=== PATIENT | male | born 1990 | race Caucasian/White ===

== ENCOUNTER 2022-03-08 11:32 | Outpatient (CLI) | payer BC, SELFPAY ==
[2022-03-08 21:18] LABS: Albumin* 4.4 g/dL (3.3-5.0); Chloride* 101 mmol/L (96-114)
[2022-03-08 21:19] LABS: Potassium* 4.6 mmol/L (3.6-5.1); Sodium* 140 mmol/L (135-149)
[2022-03-08 21:22] LABS: Alanine Aminotransferase* 235 U/L (4-50); Alkaline Phosphatase* 71 U/L (40-150); Aspartate Amino Transferase* 143 U/L (12-35); Bilirubin Total* 0.6 mg/dL (0.1-1.5); Blood Urea Nitrogen* 14 mg/dL (5-24); Calcium* 9.5 mg/dL (8.4-10.6); Carbon Dioxide* 33 mmol/L (20-32); Cholesterol* 182 mg/dL (90-199); Creatinine* 0.7 mg/dL (0.5-1.5); Estimated Glomerular Filt Rate 126 ml/min; Glucose* 115 mg/dL (60-115); HDL Cholesterol* 34 mg/dL (>=40); LDL Cholesterol Calculated 46 mg/dL (<100); Total Protein* 7.7 g/dL (6.0-8.3)
[2022-03-08 21:27] LABS: Triglycerides* 509 mg/dL (40-149)
[2022-03-10 17:45] LABS: Vitamin D, 1,25-Dihydroxy 38.5 pg/mL (19.9-79.3)
[2022-03-13 20:10] LABS: Hepatitis B Surface Antibody* Positive (Negative); Hepatitis C Virus Antibody* Positive (Negative)
== END 2022-03-08 11:33 | disposition home or self-care (01) ==
PROVIDERS: PCP Physician Assistant Medical; Visit Provider Physician Assistant Medical
DX: Z00.00 Encounter for general adult medical examination without abnormal findings (principal); I10 Essential (primary) hypertension; F32.9 Major depressive disorder, single episode, unspecified; F41.0 Panic disorder [episodic paroxysmal anxiety]; G89.29 Other chronic pain
CPT/HCPCS: 80053; 80061; 82652; 84443; 86618; 86706; 86803

== ENCOUNTER 2022-03-13 15:32 | Outpatient (CLI) | payer BC, SELFPAY | END 2022-03-13 15:33 | disposition home or self-care (01) | LOC: LAB 15:47 | PROVIDERS: PCP Physician Assistant Medical; Visit Provider Physician Assistant Medical | DX: Z00.00 Encounter for general adult medical examination without abnormal findings (principal); I10 Essential (primary) hypertension; Z11.3 Encounter for screening for infections with a predominantly sexual mode of transmission | CPT/HCPCS: 86703; 86803 ==

== ENCOUNTER 2022-03-15 07:01 | Outpatient (CLI) | payer BC, SELFPAY ==
--- NOTE | 2022-03-15 07:15 | CRLHL7_ITS ---
For Patients: As a result of the Century Cures Act, medical imaging exams and procedure reports are released immediately into your electronic medical record. You may view this report before your referring provider. If you have questions, please contact your health care provider. INDICATION: elevated liver enzymes COMPARISON: none TECHNIQUE: Real time pimentel scale imaging and color Doppler analysis was performed of the right upper quadrant. FINDINGS: The patient`s liver is of normal size and has diffusely increased echogenicity. There is a normal appearance of the hepatic IVC and proximal abdominal aorta. There is no evidence of ascites. The gallbladder is of normal size and there is moderate layering sludge. The gallbladder wall measures 3 mm in thickness. The common bile duct is of normal size and measures 6 mm in diameter at the level of the citlalli hepatis. The pancreas is not well visualized due to overlying bowel gas. There is no evidence of a stone or hydronephrosis within the right kidney. The right kidney measures cm in length. IMPRESSION: Severe hepatic steatosis. Moderate sludge in the gallbladder. Dictated by Evans Irving MD @ 03/15/2022 8:35:18 AM (Electronically Signed)
[2022-03-18 13:21] LABS: Hepa B Virus Surf Ag Conf Non Confirmed (Non Confirmed)
== END 2022-03-15 07:02 | disposition home or self-care (01) ==
PROVIDERS: PCP Physician Assistant Medical; Visit Provider Physician Assistant Medical
DX: R74.8 Abnormal levels of other serum enzymes (principal); K76.0 Fatty (change of) liver, not elsewhere classified
CPT/HCPCS: 36415; 76705; 87341

== ENCOUNTER 2022-03-15 13:09 | Outpatient (CLI) | payer BC, SELFPAY | END 2022-03-15 13:10 | disposition home or self-care (01) | LOC: LKVREF 13:10 | PROVIDERS: PCP Physician Assistant Medical; Visit Provider Physician Assistant Medical | DX: R79.89 Other specified abnormal findings of blood chemistry (principal); K76.0 Fatty (change of) liver, not elsewhere classified | CPT/HCPCS: 87522 ==

== ENCOUNTER 2022-07-10 08:43 | Outpatient (CLI) | payer BC, SELFPAY ==
[2022-07-10 14:22] LABS: Amphetamine Screen Urine Negative (Negative); Barbiturate Screen Urine Negative (Negative); Benzodiazepines Screen Urine Negative (Negative); Cannabinoid Screen Urine POSITIVE (Negative); Cocaine Screen Urine Negative (Negative); Methadone Screen Urine Negative (Negative); Methamphetamines Screen Urine Negative (Negative); Opiate Screen Urine Negative (Negative); Oxycodone Screen Urine Negative (Negative); Phencyclidine Screen Urine Negative (Negative); Tricyclic Antidepressant Urine Negative (Negative)
== END 2022-07-10 08:44 | disposition home or self-care (01) ==
LOC: LKVREF 08:45
PROVIDERS: PCP Physician Assistant Medical; Visit Provider Physician Assistant Medical
DX: F41.0 Panic disorder [episodic paroxysmal anxiety] (principal); F41.9 Anxiety disorder, unspecified
CPT/HCPCS: 80306

== ENCOUNTER 2022-11-06 10:27 | Outpatient (CLI) | payer BC, SELFPAY | END 2022-11-06 10:28 | disposition home or self-care (01) | LOC: NFLDREF 11-07 10:46 | PROVIDERS: PCP Physician Assistant Medical; Referring Provider Physician Assistant Medical; Visit Provider Physician Assistant Medical | DX: Z00.00 Encounter for general adult medical examination without abnormal findings (principal); E78.1 Pure hyperglyceridemia; R79.89 Other specified abnormal findings of blood chemistry; I10 Essential (primary) hypertension | CPT/HCPCS: 80053; 80061 ==

== ENCOUNTER 2023-01-18 09:41 | Outpatient (CLI) | payer BC, SELFPAY | END 2023-01-18 09:42 | disposition home or self-care (01) | LOC: LKVREF 09:42 | PROVIDERS: PCP Physician Assistant Medical; Visit Provider Family Medicine | DX: F50.9 Eating disorder, unspecified (principal); L05.91 Pilonidal cyst without abscess | CPT/HCPCS: 86140 ==

== ENCOUNTER 2023-01-22 05:54 | Day surgery (SDC) | payer BC, SELFPAY ==
[2023-01-22] VITALS (14 sets, daily range): BP systolic 94–148; BP diastolic 34–76; PULSE 65–92; RESP 16–26; TEMP 35.8–37.6; O2SAT 94–100; BMI 37.7
--- NOTE | 2023-01-22 | CRLHL7_ITS ---
For Patients: As a result of the Cures Act, medical imaging exams and procedure reports are released immediately into your electronic medical record. You may view this report before your referring provider. If you have questions, please contact your health care provider. INDICATION: PILONIDAL ABCESS EVAL LUMBAR PROXIMAL TECHNIQUE: CT L-spine recon from same day CT pelvis with IV contrast) COMPARISON: None. FINDINGS: Vertebrae: Postoperative changes of anterior-posterior spinal fusion at L5-S1 along with interbody disc spacer. No evidence of hardware fracture or lucency. Anterior wedging of L1 which is suspected to be a chronic finding. No evidence of acute fracture. Multiple small Schmorl`s nodes throughout the visualized lower thoracic and upper lumbar spine. No evidence of spondylolisthesis. Discs and facet joints: Mild-moderate multilevel intervertebral disc space narrowing facet arthropathy. Extraspinal findings: Paraspinal findings as discussed on same-day contrast enhanced CT pelvis. IMPRESSION: Postoperative changes of anterior-posterior spinal fusion at L5-S1 along with interbody disc spacer. No evidence of hardware fracture or lucency. Anterior wedging of L1 which is suspected to be a chronic finding. Paraspinal findings as discussed on same-day contrast enhanced CT pelvis. Please note that all CT scans at this facility use dose modulation, iterative reconstruction, and/or weight-based dosing when appropriate to reduce radiation dose to as low as reasonably achievable. Dictated by Bill Mariscal MD @ 01/22/2023 8:36:29 AM (Electronically Signed)
--- NOTE | 2023-01-22 06:39 | CRLHL7_ITS ---
For Patients: As a result of the Century Cures Act, medical imaging exams and procedure reports are released immediately into your electronic medical record. You may view this report before your referring provider. If you have questions, please contact your health care provider. INDICATION: PILONIDAL ABCESS EVAL LUMBAR PROXIMAL TECHNIQUE: CT pelvis with 141 cc Isovue 370 IV contrast. COMPARISON: None. FINDINGS: Pilonidal ring-enhancing collection measuring 2.8 x 1.7 x 2.0 cm. Slightly more cranially and right of midline there is a more ill-defined fluid collection measuring 1.9 x 4.0 cm without discrete rim enhancement. This collection is more nonspecific and may represent postoperative changes. Mild surrounding inflammation involving the pilonidal region and lumbar paraspinal soft tissues. No CT evidence of extension of this collection or fissure to the underlying osseous structures or spinal canal. Posterior and anterior L5-S1 fusion. No acute process within the visualized abdomen/pelvic structures. IMPRESSION: Pilonidal ring-enhancing collection measuring 2.8 x 1.7 x 2.0 cm. Finding raises suspicion for abscess. No CT evidence of extension of this collection or fissure to the underlying osseous structures or spinal canal. However, contrast-enhanced MRI would be more sensitive to evaluate for fistula or infectious extension into the spinal canal. Slightly more cranially and right of midline there is a more ill-defined fluid collection measuring 1.9 x 4.0 cm, without discrete rim enhancement. This collection is more indeterminate and may represent postoperative seroma. Please note that all CT scans at this facility use dose modulation, iterative reconstruction, and/or weight-based dosing when appropriate to reduce radiation dose to as low as reasonably achievable. Dictated by Bill Mariscal MD @ 01/22/2023 8:30:52 AM (Electronically Signed)
[2023-01-22 06:44] LABS: Lactate* 1.8 mmol/L (0.5-1.9)
--- NOTE | 2023-01-22 06:45 | ED_ITS ---
HPI - General Adult General Chief complaint: Skin/Abscess/Foreign Body <Fannie Ruelas MD - Last Filed: 01/23/23 00:58> Stated complaint: cyst on tailbone ruptured <Fannie Ruelas MD - Last Filed: 01/23/23 00:58> Time Seen by Provider: 01/22/23 06:02 <Fannie Ruelas MD - Last Filed: 01/23/23 00:58> Source: patient and family <Fannie Ruelas MD - Last Filed: 01/23/23 00:58> Mode of arrival: ambulatory <Fannie Ruelas MD - Last Filed: 01/23/23 00:58> History of Present Illness HPI narrative: 32-year-old male with a notable history of known pilonidal cyst presents to the emergency department because the cyst is enlarging and now has started draining. Drained last night, some again this morning. Seems more painful. Was placed on antibiotics by primary care physician appropriately last week. Rather, the Spectrum was broadened. It looks like he was originally seen in the [facility] system, started on doxycycline, things seem to worsen, he was having fevers, was changed to Augmentin and an outpatient MRI was planned, this is actually scheduled for tomorrow and he is going to see our general surgeon tomorrow as well. He has the fevers have resolved, but is still not feeling well. The pain is increased. He does request Toradol when I offer pain medication again. Appetite has been okay, no cardiac or pulmonary symptoms. He does have a notable history of a lumbar surgery with a graft placed as part of a spinal fusion. The pilonidal cyst is in close proximity to this, hence the request for the upcoming MRI. He has not taken any pain medicine this morning to help with symptoms. He has reported good compliance with the Augmentin. Past history is fairly extensive but he reports marked improvement in most of these conditions with a 100 lb weight loss. Medications are reviewed and accurate, also reviewed his outpatient clinical note from Dr. Simons last week. Surgical history reviewed, medications reviewed, social history reviewed. ROS is notable for the generalized and skin symptoms as described above, otherwise denies times 12 systems. <Fannie Ruelas MD - Last Filed: 01/23/23 00:58> Related Data Home medications: Home Medications Medication Instructions Recorded Confirmed melatonin 10 mg disintegrating 10 mg PO .Bedtime as needed PRN 03/08/22 01/22/23 tablet buprenorphine HCl 2 mg sublingual 2 mg sublingual QID 11/15/22 01/22/23 tablet oxycodone 5 mg capsule 5 mg PO QID PRN 11/15/22 01/22/23 doxycycline hyclate 100 mg capsule 100 mg PO BID 01/18/23 01/22/23 Previous Rx's Medication Instructions Recorded lisinopril 20 1 tab PO QDAY #90 tabs 02/23/22 mg-hydrochlorothiazide 25 mg tablet fluoxetine 20 mg capsule 20 mg PO QDAY #90 caps 03/01/22 fluoxetine 40 mg capsule 40 mg PO QDAY #90 caps 03/01/22 metoprolol succinate 50 mg 50 mg PO QDAY #90 tabs 03/08/22 tablet,extended release 24 hr clonazepam 1 mg tablet 0.5 mg (1/2 x 1 mg) PO QDAY #15 10/18/22 tabs fenofibrate 54 mg tablet 54 mg PO DAILY #90 tabs 01/16/23 amoxicillin 875 mg-potassium 1 tab PO BID #20 tabs 01/18/23 clavulanate 125 mg tablet oxycodone 5 mg tablet 5 - 10 mg (1 - 2 x 5 mg) PO Q4H 01/22/23 PRN Pain #20 tabs <Fannie Ruelas MD - Last Filed: 01/23/23 00:58> Allergies/adverse reactions: Allergies Allergy/AdvReac Type Severity Reaction Status Date / Time No Known Allergies Allergy Verified 01/22/23 06:06 <Fannie Ruelas MD - Last Filed: 01/23/23 00:58> [facility] Medical History: Medical History (Updated 01/22/23 @ 13:12 by Indy Mo MD) High triglycerides ?E78.1 - Pure hyperglyceridemia (ICD-10) Hepatitis C (~03/2022) ?B19.20 - Unspecified viral hepatitis C without hepatic coma (ICD-10) Hypertension ?I10 - Essential (primary) hypertension (ICD-10) Chronic low back pain ?M54.50 - Low back pain, unspecified (ICD-10) ?G89.29 - Other chronic pain (ICD-10) Panic disorder ?F41.0 - Panic disorder [episodic paroxysmal anxiety] (ICD-10) Depression ?F32.A - Depression, unspecified (ICD-10) Anxiety ?F41.9 - Anxiety disorder, unspecified (ICD-10) Accidental overdose ?T50.901A - Poisoning by unspecified drugs, medicaments and biological substances, accidental (unintentional), initial encounter (ICD-10) Hx of blood clots ?Z86.718 - Personal history of other venous thrombosis and embolism (ICD-10) History of opioid abuse ?F11.11 - Opioid abuse, in remission (ICD-10) History of alcohol abuse ?F10.11 - Alcohol abuse, in remission (ICD-10) <Fannie Ruelas MD - Last Filed: 01/23/23 00:58> Surgical History: Surgical History History of wisdom tooth extraction ?K08.409 - Partial loss of teeth, unspecified cause, unspecified class (ICD- 10) History of right knee surgery ?Z98.890 - Other specified postprocedural states (ICD-10) History of lumbar discectomy (2019) ?Z98.890 - Other specified postprocedural states (ICD-10) <Fannie Ruelas MD - Last Filed: 01/23/23 00:58> Family History: Family History Father Bipolar disorder High blood pressure Alcoholism Addiction to drug Mother Addiction to drug Maternal Grandmother History of spinal fusion Paternal Grandfather History of spinal fusion <Fannie Ruelas MD - Last Filed: 01/23/23 00:58> Social History: Social History (Updated 01/22/23 @ 13:13 by Indy Mo MD) Narrative: Male homosexual, to [place]. 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 Smoking Status: Never smoker Second hand tobacco smoke exposure: No How often do you have a drink containing alcohol: never How often do you have six or more drinks on one occasion: Never AUDIT-C Alcohol total score: 0 Non-prescribed substance use: denies use Little interest or pleasure in doing things: several days Feeling down, depressed, or hopeless: several days <Fannie Ruelas MD - Last Filed: 01/23/23 00:58> Exam Const: Vital Signs, click to edit/add: Vital Signs - 24 hr 01/22/23 06:03 01/22/23 06:46 01/22/23 07:32 Temperature 98.1 F 98.1 F 96.4 F L Pulse Rate Pulse Rate [Right Pulse Oximeter] 65 84 Respiratory Rate 18 18 Blood Pressure Blood Pressure [Ri ght Upper Arm] 148/76 H 94/34 L Pulse Oximetry 99 95 Oxygen Delivery Me thod Room Air Room Air 01/22/23 09:02 01/22/23 11:52 01/22/23 14:40 Temperature 97.2 F L 98.1 F Pulse Rate 92 Pulse Rate [Right Pulse Oximeter] 89 82 Respiratory Rate 18 18 26 H Blood Pressure 123/76 Blood Pressure [Ri ght Upper Arm] 132/71 120/71 Pulse Oximetry 99 95 99 Oxygen Delivery Me thod Room Air Room Air Room Air 01/22/23 14:45 01/22/23 14:50 01/22/23 14:55 Temperature Pulse Rate 89 90 86 Pulse Rate [Right Pulse Oximeter] Respiratory Rate 22 18 18 Blood Pressure 104/62 104/62 110/55 L Blood Pressure [Ri ght Upper Arm] Pulse Oximetry 100 100 99 Oxygen Delivery Me thod Room Air Room Air Room Air 01/22/23 15:00 01/22/23 15:05 01/22/23 15:16 Temperature 99.6 F 99.4 F Pulse Rate 88 89 88 Pulse Rate [Right Pulse Oximeter] Respiratory Rate 18 18 16 Blood Pressure 110/62 117/52 L 115/53 L Blood Pressure [Ri ght Upper Arm] Pulse Oximetry 98 99 100 Oxygen Delivery Me thod Room Air Room Air Room Air 01/22/23 15:30 01/22/23 16:08 Temperature Pulse Rate 85 89 Pulse Rate [Right Pulse Oximeter] Respiratory Rate 16 16 Blood Pressure 116/64 110/61 Blood Pressure [Ri ght Upper Arm] Pulse Oximetry 100 94 Oxygen Delivery Me thod Room Air Room Air <Fannie Ruelas MD - Last Filed: 01/23/23 00:58> Vital Signs, click to edit/add: Vital Signs - 24 hr 01/22/23 06:03 01/22/23 06:46 01/22/23 07:32 Temperature 98.1 F 98.1 F 96.4 F L Pulse Rate Pulse Rate [Right Pulse Oximeter] 65 84 Respiratory Rate 18 18 Blood Pressure Blood Pressure [Ri ght Upper Arm] 148/76 H 94/34 L Pulse Oximetry 99 95 Oxygen Delivery Me thod Room Air Room Air 01/22/23 09:02 01/22/23 11:52 01/22/23 14:40 Temperature 97.2 F L 98.1 F Pulse Rate 92 Pulse Rate [Right Pulse Oximeter] 89 82 Respiratory Rate 18 18 26 H Blood Pressure 123/76 Blood Pressure [Ri ght Upper Arm] 132/71 120/71 Pulse Oximetry 99 95 99 Oxygen Delivery Me thod Room Air Room Air Room Air 01/22/23 14:45 01/22/23 14:50 01/22/23 14:55 Temperature Pulse Rate 89 90 86 Pulse Rate [Right Pulse Oximeter] Respiratory Rate 22 18 18 Blood Pressure 104/62 104/62 110/55 L Blood Pressure [Ri ght Upper Arm] Pulse Oximetry 100 100 99 Oxygen Delivery Me thod Room Air Room Air Room Air 01/22/23 15:00 01/22/23 15:05 01/22/23 15:16 Temperature 99.6 F 99.4 F Pulse Rate 88 89 88 Pulse Rate [Right Pulse Oximeter] Respiratory Rate 18 18 16 Blood Pressure 110/62 117/52 L 115/53 L Blood Pressure [Ri ght Upper Arm] Pulse Oximetry 98 99 100 Oxygen Delivery Me thod Room Air Room Air Room Air 01/22/23 15:30 01/22/23 16:08 Temperature Pulse Rate 85 89 Pulse Rate [Right Pulse Oximeter] Respiratory Rate 16 16 Blood Pressure 116/64 110/61 Blood Pressure [Ri ght Upper Arm] Pulse Oximetry 100 94 Oxygen Delivery Me thod Room Air Room Air <Wilfredo Duncan MD - Last Filed: 01/22/23 12:45> Documenting provider has reviewed patient's vital signs: yes <Fannie Ruelas MD - Last Filed: 01/23/23 00:58> Common normals: no apparent distress <MD Gregory Pagan Last Filed: 01/23/23 00:58> General appearance: cooperative, comfortable and well kempt <MD Gregory Pagan Last Filed: 01/23/23 00:58> HENMT: Common normals: normocephalic <MD Gregory Pagan Last Filed: 01/23/23 00:58> Head and scalp: normocephalic <MD Gregory Pagan Last Filed: 01/23/23 00:58> Face and sinus: normal facial exam <MD Gregory Pagan Last Filed: 01/23/23 00:58> Mouth: oral and palatal mucosa normal <MD Gregory Pagan Last Filed: 01/23/23 00:58> Eye: General eye: normal appearance of both eyes <MD Gregory Pagan Last Filed: 01/23/23 00:58> Other: Normal visual gaze and tracking <MD Gregory Pagan Last Filed: 01/23/23 00:58> Resp: Common normals: normal respiratory effort, no use of accessory muscles and clear to auscultation bilaterally <MD Gregory Pagan Last Filed: 01/23/23 00:58> Effort & inspection: able to speak in complete sentences <MD Gregory Pagan Last Filed: 01/23/23 00:58> Auscultation: clear to auscultation bilaterally <MD Gregory Pagan Last Filed: 01/23/23 00:58> Cardio: Common normals: regular rate, regular rhythm, S1 normal heart sound, S2 normal heart sound and no murmurs <MD Gregory Pagan Last Filed: 01/23/23 00:58> Rate: regular rate <MD Gregory Pagan Last Filed: 01/23/23 00:58> Rhythm: regular rhythm <MD Gregory Pagan Last Filed: 01/23/23 00:58> Heart sounds: S1 normal and S2 normal <MD Gregory Pagan Last Filed: 01/23/23 00:58> : Other: Gluteal area shows obvious large pilonidal area induration, swelling. This is a large area probably 8 to 9 cm in length in with, raised about 2 cm above the opposite skin, it is located in the superior central right upper gluteal pilonidal area. The induration does communicate with his previous lumbar surgical incision. The overall appearance is very [place], it is nonfluctuant. I can see a couple of blistery central spots but I cannot milk any purulent drai nage today. Perirectal area is otherwise grossly normal in appearance. There is no fluctuance over the lumbar surgical incision. <Fannie Ruelas MD - Last Filed: 01/23/23 00:58> Neuro: Speech: speech normal <Fannie Ruelas MD - Last Filed: 01/23/23 00:58> Motor exam: no movement abnormalities noted <Fannie Ruelas MD - Last Filed: 01/23/23 00:58> Psych: Appearance: well kempt <Fannie Ruelas MD - Last Filed: 01/23/23 00:58> Attitude: engaged <Fannie Ruelas MD - Last Filed: 01/23/23 00:58> Mood and affect: euthymic mood <Fannie Ruelas MD - Last Filed: 01/23/23 00:58> Insight: insight good <Fnanie Ruelas MD - Last Filed: 01/23/23 00:58> Judgement: judgment good <Fannie Ruelas MD - Last Filed: 01/23/23 00:58> Skin: Narrative: Other than the indurated, abscess appearing area, no other areas of suspicion. <Fannie Ruelas MD - Last Filed: 01/23/23 00:58> Course Course Hospital Course: I have significant concern for infection, possible sepsis, possible communication with prior lumbar hardware. Blood culture, CRP, typical blood work, to place IV line, bolus normal saline. I have contacted the surgeon on- call, recommend CT scan, antibiotics. I have ordered Zosyn. <Fannie Ruelas MD - Last Filed: 01/23/23 00:58> Reevaluation(s) Time of Reevaluation #1: 08:05 <Fannie Ruelas MD - Last Filed: 01/23/23 00:58> Reevaluation #1: Toradol did not adequately improved patient's pain, will order p.r.n. oxycodone and Zofran if needed. Spoke with my partner, Dr. Doyle he will be assuming care for patient. CT has been performed, we are awaiting the final interpretation. He will contact Dr. Mcmillan once these results are available. Zosyn has been infused, normal saline bolus is starting. Patient will be NPO in case of surgical intervention. <Fannie Ruelas MD - Last Filed: 01/23/23 00:58> Vital Signs Vital signs: Initial Vital Signs Temperature 98.1 F 01/22/23 06:03 Temperature Source Temporal Artery Scan 01/22/23 06:03 Pulse Rate 65 01/22/23 06:03 Respiratory Rate 18 01/22/23 06:03 Blood Pressure 148/76 H 01/22/23 06:03 Blood Pressure Mean 100 01/22/23 06:03 Blood Pressure Position Sitting 01/22/23 06:03 Pulse Oximetry 99 01/22/23 06:03 Oxygen Delivery Method Room Air 01/22/23 06:03 Vital Signs Temperature 98.1 F 01/22/23 06:03 Pulse Rate 65 01/22/23 06:03 Respiratory Rate 18 01/22/23 06:03 Blood Pressure 148/76 H 01/22/23 06:03 Pulse Oximetry 99 01/22/23 06:03 Oxygen Delivery Method Room Air 01/22/23 06:03 Temperature 99.4 F 01/22/23 15:16 Pulse Rate 89 01/22/23 16:08 Respiratory Rate 16 01/22/23 16:08 Blood Pressure 110/61 01/22/23 16:08 Pulse Oximetry 94 01/22/23 16:08 Oxygen Delivery Method Room Air 01/22/23 16:08 <Fannie Ruelas MD - Last Filed: 01/23/23 00:58> Initial Vital Signs Temperature 98.1 F 01/22/23 06:03 Temperature Source Temporal Artery Scan 01/22/23 06:03 Pulse Rate 65 01/22/23 06:03 Respiratory Rate 18 01/22/23 06:03 Blood Pressure 148/76 H 01/22/23 06:03 Blood Pressure Mean 100 01/22/23 06:03 Blood Pressure Position Sitting 01/22/23 06:03 Pulse Oximetry 99 01/22/23 06:03 Oxygen Delivery Method Room Air 01/22/23 06:03 Vital Signs Temperature 98.1 F 01/22/23 06:03 Pulse Rate 65 01/22/23 06:03 Respiratory Rate 18 01/22/23 06:03 Blood Pressure 148/76 H 01/22/23 06:03 Pulse Oximetry 99 01/22/23 06:03 Oxygen Delivery Method Room Air 01/22/23 06:03 Temperature 99.4 F 01/22/23 15:16 Pulse Rate 89 01/22/23 16:08 Respiratory Rate 16 01/22/23 16:08 Blood Pressure 110/61 01/22/23 16:08 Pulse Oximetry 94 01/22/23 16:08 Oxygen Delivery Method Room Air 01/22/23 16:08 <Wilfredo Duncan MD - Last Filed: 01/22/23 12:45> Medical Decision Making MDM Narrative Medical decision making narrative: This patient has a sizable pilonidal cyst. Care for this patient was transferred to [place] at the end of Dr. Ruelas's shift. CT results do show evidence of a cyst in there is some suspicion that it may communicate with the previous spinal surgery. MRI then is ordered which results with no such evidence. I did speak with the surgeon on-call, Dr. Mo, regarding these results. She will see the patient and bring him to the OR to drain this pilonidal cyst. The patient did receive an IV dose of antibiotic here. <Wilfredo Duncan MD - Last Filed: 01/22/23 12:45> Lab Data Labs: Lab Results 01/22/23 Range/Units 06:38 WBC 9.29 (4.50-11.00) K/uL RBC 4.08 L (4.30-5.90) m/uL Hgb 12.1 L (13.5-17.5) gm/dL Hct 36.7 L (37.0-53.0) % MCV 90 (80-100) fL MCH 30 (26-34) pg MCHC 33 (32-36) gm/dL RDW Coeff of Sneha 12.7 (11.5-15.5) % Plt Count 305 (140-440) K/uL Neut % (Auto) 64.0 (42.0-72.0) % Lymph % (Auto) 22.2 (20-44) % [place] % (Auto) 11.5 H (0.0-11.0) % Eos % (Auto) 1.7 (0.0-7.0) % Baso % (Auto) 0.4 (0.0-3.0) % Neut # (Auto) 5.94 (1.7-7.0) K/uL Lymph # (Auto) 2.06 (0.90-2.90) K/uL [place] # (Auto) 1.10 H (0.00-0.90) K/UL Eos # (Auto) 0.16 (0.00-0.50) K/uL Baso # (Auto) 0.04 (0.00-0.30) K/uL Sodium 136 (135-149) mmol/L Potassium 3.9 (3.6-5.1) mmol/L Chloride 101 (96-114) mmol/L Carbon Dioxide 33 H (20-32) mmol/L BUN 24 (5-24) mg/dL Creatinine 1.1 (0.5-1.5) mg/dL Estimated Creat Clear 107.95 Estimated GFR 91 ml/min Glucose 102 (60-115) mg/dL Lactate 1.8 (0.5-1.9) mmol/L Calcium 9.5 (8.4-10.6) mg/dL C-Reactive Protein 5.7 H (0.5-1.0) mg/dL <Fannie Ruelas MD - Last Filed: 01/23/23 00:58> Lab Results 01/22/23 Range/Units 06:38 WBC 9.29 (4.50-11.00) K/uL RBC 4.08 L (4.30-5.90) m/uL Hgb 12.1 L (13.5-17.5) gm/dL Hct 36.7 L (37.0-53.0) % MCV 90 (80-100) fL MCH 30 (26-34) pg MCHC 33 (32-36) gm/dL RDW Coeff of Sneha 12.7 (11.5-15.5) % Plt Count 305 (140-440) K/uL Neut % (Auto) 64.0 (42.0-72.0) % Lymph % (Auto) 22.2 (20-44) % [place] % (Auto) 11.5 H (0.0-11.0) % Eos % (Auto) 1.7 (0.0-7.0) % Baso % (Auto) 0.4 (0.0-3.0) % Neut # (Auto) 5.94 (1.7-7.0) K/uL Lymph # (Auto) 2.06 (0.90-2.90) K/uL [place] # (Auto) 1.10 H (0.00-0.90) K/UL Eos # (Auto) 0.16 (0.00-0.50) K/uL Baso # (Auto) 0.04 (0.00-0.30) K/uL Sodium 136 (135-149) mmol/L Potassium 3.9 (3.6-5.1) mmol/L Chloride 101 (96-114) mmol/L Carbon Dioxide 33 H (20-32) mmol/L BUN 24 (5-24) mg/dL Creatinine 1.1 (0.5-1.5) mg/dL Estimated Creat Clear 107.95 Estimated GFR 91 ml/min Glucose 102 (60-115) mg/dL Lactate 1.8 (0.5-1.9) mmol/L Calcium 9.5 (8.4-10.6) mg/dL C-Reactive Protein 5.7 H (0.5-1.0) mg/dL <Wilfredo Duncan MD - Last Filed: 01/22/23 12:45> Imaging Data MR Lumbar: Radiologist's impression: 1. Severe spinal canal stenosis at L3-4 and moderate central canal stenosis at L2-3 due to disc herniations and disc bulges. 2. Chronic postoperative changes of L5-S1 interbody cage placement, anterior plate and screw fixation, laminectomy, and bilateral pedicle screw and shane fixation. No evidence of discitis or osteomyelitis. No fluid collection at the laminectomy site. 3. There is an 8.2 cm fluid collection in the subcutaneous fat at the S2-S4 levels with rim enhancement and adjacent soft tissue edema concerning for pilonidal cyst/abscess in the appropriate clinical setting. 4. Additional 1.9 cm fluid collection in the subcutaneous fat located inferior to the above collection with similar imaging characteristics of uncertain sterility. <Wilfredo Duncan MD - Last Filed: 01/22/23 12:45> Discharge Plan Discharge Clinical Impression: Cyst, pilonidal, with abscess <Fannie Ruelas MD - Last Filed: 01/23/23 00:58> Patient Disposition: XFER to OR <Fannie Ruelas MD - Last Filed: 01/23/23 00:58> Condition: Unchanged <Fannie Ruelas MD - Last Filed: 01/23/23 00:58>
[2023-01-22 06:46] LABS: Basophils Absolute Auto 0.04 K/uL (0.00-0.30); Basophils Percent Auto 0.4 % (0.0-3.0); Eosinophils Absolute Auto 0.16 K/uL (0.00-0.50); Eosinophils Percent Auto 1.7 % (0.0-7.0); Hematocrit 36.7 % (37.0-53.0); Hemoglobin* 12.1 gm/dL (13.5-17.5); Immature Granulocytes Abs Auto 0.02 K/uL (0.00-0.30); Immature Granulocytes Pct Auto 0.2 %; Lymphocytes Absolute Auto 2.06 K/uL (0.90-2.90); Lymphocytes Percent Auto 22.2 % (20-44); Mean Corpuscular HGB Conc 33 gm/dL (32-36); Mean Corpuscular Hemoglobin 30 pg (26-34); Mean Corpuscular Volume 90 fL (80-100); Monocytes Percent Auto 11.5 % (0.0-11.0); Neutrophils Absolute Auto 5.94 K/uL (1.7-7.0); Platelet Count* 305 K/uL (140-440); RDW Coefficient of Variation % 12.7 % (11.5-15.5); Red Blood Count 4.08 m/uL (4.30-5.90); White Blood Count* 9.29 K/uL (4.50-11.00)
[2023-01-22] MEDS: KETOROLAC 15 MG/ML inj IVP (06:46)
[2023-01-22 06:48] LABS: Slide Review Reflex No
[2023-01-22 07:04] LABS: Chloride* 101 mmol/L (96-114); Potassium* 3.9 mmol/L (3.6-5.1); Sodium* 136 mmol/L (135-149)
[2023-01-22 07:07] LABS: Creatinine* 1.1 mg/dL (0.5-1.5); Est. Creatinine Clearance* 107.95; Estimated Glomerular Filt Rate 91 ml/min
[2023-01-22 07:08] LABS: Blood Urea Nitrogen* 24 mg/dL (5-24); Calcium* 9.5 mg/dL (8.4-10.6); Carbon Dioxide* 33 mmol/L (20-32); Glucose* 102 mg/dL (60-115)
[2023-01-22 07:11] LABS: C Reactive Protein* 5.7 mg/dL (0.5-1.0)
[2023-01-22] MEDS: PIPERACILLIN/TAZOBACTAM 3.375 GM in 0.9 % SODIUM CHLORIDE Mini-bag 100 ML IVPB (07:27)
--- NOTE | 2023-01-22 07:46 | PM.GSCN ---
History of Present Illness Consult details Date Seen: 01/22/23 Consult date: 01/22/23 Narrative: The patient is a 32-year-old male who presents to the emergency department with several days of pain in his tailbone. He states that on Sunday he had a massage where there was excessive pressure applied to his coccyx. On Sunday he thought that his symptoms were simply because of the massage, however he continued to feel worse. He states that he was achy and had nausea as well as sweats. He had a fever up to 101.6. On Sunday morning he went to the emergency department. At that time they did an ultrasound which showed no fluid. A told him to follow up with his primary care provider. On he saw Dr. Simons who ordered labs and and x-ray of his back given the fact that he has had a lumbar fusion in the past and the erythema extended up to the inferior portion of his incision. He had schedule him to see general surgery and also ordered an MRI. After this he states that he felt better physically but the pain on his tailbone was getting worse and he felt as though it was getting more swollen. It was radiating up his right back as well. Yesterday it began draining blood. [facility] Medical History (Updated 01/22/23 @ 13:12 by Indy Mo MD) High triglycerides ?E78.1 - Pure hyperglyceridemia (ICD-10) Hepatitis C (~03/2022) ?B19.20 - Unspecified viral hepatitis C without hepatic coma (ICD-10) Hypertension ?I10 - Essential (primary) hypertension (ICD-10) Chronic low back pain ?M54.50 - Low back pain, unspecified (ICD-10) ?G89.29 - Other chronic pain (ICD-10) Panic disorder ?F41.0 - Panic disorder [episodic paroxysmal anxiety] (ICD-10) Depression ?F32.A - Depression, unspecified (ICD-10) Anxiety ?F41.9 - Anxiety disorder, unspecified (ICD-10) Accidental overdose ?T50.901A - Poisoning by unspecified drugs, medicaments and biological substances, accidental (unintentional), initial encounter (ICD-10) Hx of blood clots ?Z86.718 - Personal history of other venous thrombosis and embolism (ICD-10) History of opioid abuse ?F11.11 - Opioid abuse, in remission (ICD-10) History of alcohol abuse ?F10.11 - Alcohol abuse, in remission (ICD-10) Surgical History History of wisdom tooth extraction ?K08.409 - Partial loss of teeth, unspecified cause, unspecified class (ICD-10) History of right knee surgery ?Z98.890 - Other specified postprocedural states (ICD-10) History of lumbar discectomy (2019) ?Z98.890 - Other specified postprocedural states (ICD-10) Family History Father Bipolar disorder High blood pressure Alcoholism Addiction to drug Mother Addiction to drug Maternal Grandmother History of spinal fusion Paternal Grandfather History of spinal fusion Social History (Updated 01/22/23 @ 13:13 by Indy Mo MD) Narrative: Male homosexual, to [place]. 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 Smoking Status: Never smoker Second hand tobacco smoke exposure: No How often do you have a drink containing alcohol: never How often do you have six or more drinks on one occasion: Never AUDIT-C Alcohol total score: 0 Non-prescribed substance use: denies use Little interest or pleasure in doing things: several days Feeling down, depressed, or hopeless: several days Meds Home Medications and Allergies Home Medications Medication Instructions Recorded Confirmed Type melatonin 10 mg disintegrating 10 mg PO .Bedtime as needed PRN 03/08/22 01/22/23 History tablet buprenorphine HCl 2 mg sublingual 2 mg sublingual QID 11/15/22 01/22/23 History tablet oxycodone 5 mg capsule 5 mg PO QID PRN 11/15/22 01/22/23 History doxycycline hyclate 100 mg capsule 100 mg PO BID 01/18/23 01/22/23 History Allergies Allergy/AdvReac Type Severity Reaction Status Date / Time No Known Allergies Allergy Verified 01/22/23 06:06 Exam Narrative: Exam Narrative: General appearance: Alert, cooperative, and in no distress Eyes: PERRLA, eye lids clear, and sclera white HENT Head: Normocephalic Ears: External ears normal Pulmonary: Clear to auscultation bilaterally Cardiovascular Heart: Regular rate and rhythm Extremities: warm and well perfused Musculoskeletal: Extremities: Upper: Both upper extremities have normal joint range of motion and intact strength. Lower: Both lower extremities have normal joint range of motion and intact strength. Skin: On his back on the right above the gluteal cleft he has a large area of cellulitis, measuring approximately 7 x 10 cm. This does extend toward end up to his midline incision from his L5-S1 fusion. Neurologic: No focal deficits Psychiatric: Alert, oriented, cooperative, normal affect. Const: Vital Signs, click to edit/add: Vital Signs - 24 hr 01/22/23 06:03 01/22/23 06:46 01/22/23 07:32 Temperature 98.1 F 98.1 F 96.4 F L Pulse Rate [Right Pulse Oximeter] 65 84 Respiratory Rate 18 18 Blood Pressure [Ri ght Upper Arm] 148/76 H 94/34 L Pulse Oximetry 99 95 Oxygen Delivery Me thod Room Air Room Air Results Labs Labs: Abnormal lab results 01/22/23 Range/Units 06:38 RBC 4.08 L (4.30-5.90) m/uL Hgb 12.1 L (13.5-17.5) gm/dL Hct 36.7 L (37.0-53.0) % [place] % (Auto) 11.5 H (0.0-11.0) % [place] # (Auto) 1.10 H (0.00-0.90) K/UL Carbon Dioxide 33 H (20-32) mmol/L C-Reactive Protein 5.7 H (0.5-1.0) mg/dL Diabetes panel 01/22/23 Range/Units 06:38 Sodium 136 (135-149) mmol/L Potassium 3.9 (3.6-5.1) mmol/L Chloride 101 (96-114) mmol/L Carbon Dioxide 33 H (20-32) mmol/L BUN 24 (5-24) mg/dL Creatinine 1.1 (0.5-1.5) mg/dL Glucose 102 (60-115) mg/dL Calcium 9.5 (8.4-10.6) mg/dL Calcium panel 01/22/23 Range/Units 06:38 Calcium 9.5 (8.4-10.6) mg/dL Pituitary panel 01/22/23 Range/Units 06:38 Sodium 136 (135-149) mmol/L Potassium 3.9 (3.6-5.1) mmol/L Chloride 101 (96-114) mmol/L Carbon Dioxide 33 H (20-32) mmol/L BUN 24 (5-24) mg/dL Creatinine 1.1 (0.5-1.5) mg/dL Glucose 102 (60-115) mg/dL Calcium 9.5 (8.4-10.6) mg/dL Adrenal panel 01/22/23 Range/Units 06:38 Sodium 136 (135-149) mmol/L Potassium 3.9 (3.6-5.1) mmol/L Chloride 101 (96-114) mmol/L Carbon Dioxide 33 H (20-32) mmol/L BUN 24 (5-24) mg/dL Creatinine 1.1 (0.5-1.5) mg/dL Glucose 102 (60-115) mg/dL Calcium 9.5 (8.4-10.6) mg/dL All other labs normal. White blood cell count today is 9 from 12 on the 15th. CRP is down to 5.7 from 15.6. Imaging Additional studies: Lumbar spine MRI done today: Impression: 1. Severe spinal canal stenosis at L3-4 and moderate central canal stenosis at L2-3 due to disc herniations and disc bulges. 2. Chronic postoperative changes of L5-S1 interbody cage placement, anterior plate and screw fixation, laminectomy, and bilateral pedicle screw and shane fixation. No evidence of discitis or osteomyelitis. No fluid collection at the laminectomy site. 3. There is an 8.2 cm fluid collection in the subcutaneous fat at the S2-S4 levels with rim enhancement and adjacent soft tissue edema concerning for pilonidal cyst/abscess in the appropriate clinical setting. 4. Additional 1.9 cm fluid collection in the subcutaneous fat located inferior to the above collection with similar imaging characteristics of uncertain sterility. Dictated by Evans Barillas MD @ 01/22/2023 12:34:[address] 01/22/2023: IMPRESSION: Pilonidal ring-enhancing collection measuring 2.8 x 1.7 x 2.0 cm. Finding raises suspicion for abscess. No CT evidence of extension of this collection or fissure to the underlying osseous structures or spinal canal. However, contrast-enhanced MRI would be more sensitive to evaluate for fistula or infectious extension into the spinal canal. Slightly more cranially and right of midline there is a more ill-defined fluid collection measuring 1.9 x 4.0 cm, without discrete rim enhancement. This collection is more indeterminate and may represent postoperative seroma. Please note that all CT scans at this facility use dose modulation, iterative reconstruction, and/or weight-based dosing when appropriate to reduce radiation dose to as low as reasonably achievable. Dictated by Bill Mariscal MD @ 01/22/2023 8:30:[address] 01/22/2023: IMPRESSION: Postoperative changes of anterior-posterior spinal fusion at L5-S1 along with interbody disc spacer. No evidence of hardware fracture or lucency. Anterior wedging of L1 which is suspected to be a chronic finding. Paraspinal findings as discussed on same-day contrast enhanced CT pelvis. Please note that all CT scans at this facility use dose modulation, iterative reconstruction, and/or weight-based dosing when appropriate to reduce radiation dose to as low as reasonably achievable. Dictated by Bill Mariscal MD @ 01/22/2023 8:36:29 AM Assessment and Plan Assessment and plan (1) Anxiety: Status: Acute (2) Depression: Problem comment: Fluoxetine History of going to [facility] 11/15/2022-weekly therapy; through an outside clinic in [place]. Status: Acute (3) Panic disorder: Problem comment: History of utilizing lorazepam as needed; switch to clonazepam 1 mg twice daily Status: Acute (4) Chronic low back pain: Problem comment: Buperenorphine and oxycodone - managed by pain clinic Status: Acute (5) Hepatitis C: Problem comment: Genotype 1a Referred to [facility]- 03/24/22 Start treatment with [facility] 07/10/2022-patient has completed treatment; has lab follow-up in September 2022 with [facility] 11/15/2022-still following with [facility]. Patient reports his recent studies indicate the levels were undetectable Status: Acute (6) History of lumbar discectomy: Problem comment: x 2 Status: Acute (7) Pilonidal cyst: Status: Acute Plan The patient is a 32-year-old male with pilonidal cyst abscess. Because of the erythema which was present extending up to his prior surgical incision and some concern on CT scan for inability to rule out involvement of his surgical site from 2019, we did proceed with a MRI of the lumbar spine. This showed no evidence of extension to the spine and only subcutaneous abscess consistent with pilonidal abscess. I discussed pilonidal disease with the patient and his . I discussed the rationale behind drainage in the acute setting. I explained that I will try to open up and debride the cyst and hopefully it will heal by secondary intention. We will try to do this as an outpatient today. Because of his significant cellulitis I will likely discharge home on antibiotics as well. He will come back tomorrow for dressing change and then we will come up with a plan for daily dressing changes for him. He does live in [place]. He has a number of medical issues, however no severe cardio pulmonary issues and therefore he is cleared for surgery today.
[2023-01-22] MEDS: 0.9 % SODIUM CHLORIDE 1000 ml 1,000 ML IV (08:02)
[2023-01-22] MEDS: ONDANSETRON 2 MG/ML inj 4 MG IVP (08:12)
[2023-01-22] MEDS: OXYCODONE 5 MG TABLET PO ×2 (08:13→11:58)
--- NOTE | 2023-01-22 08:50 | CRLHL7_ITS ---
For Patients: As a result of the Century Cures Act, medical imaging exams and procedure reports are released immediately into your electronic medical record. You may view this report before your referring provider. If you have questions, please contact your health care provider. Indication: LOW BACK PAIN, PILONIDAL FISTULA. s/p AP fusion L5-S1 02/09/20. Outside RN note from 01/17/2023 states patient was getting a massage and therapist was trying to break up scar tissue in that area when bubble was noticed. Then states he pushed on in and the patient heard a popping noise. Notes chills, weakness, body aches, and fever of 101.4f with use of APAP. Technique: Noncontrast sagittal and axial T1, T2, and sagittal STIR sequences are provided. Postcontrast sagittal and axial T1 weighted images were obtained after administration of 15 ml gadolinium based IV contrast. Comparison: CT lumbar spine 01/22/2023. Findings: Lumbar lordosis is maintained. No acute compression fractures. Chronic L1 anterior wedging mild compression fracture without retropulsed fragment. No acute fractures. The conus medullaris is normal in signal and location. Chronic postoperative changes of L5-S1 interbody cage placement, anterior plate and screw fixation, laminectomy, and bilateral pedicle screw and shane fixation. T12-L1: No significant spinal canal stenosis or neural foramen narrowing. L1-2: Mild disc degeneration and posterior disc bulge. No significant spinal canal stenosis or neural foramen narrowing. L2-3: Disc degeneration with disc bulge and superimposed right paracentral disc protrusion that measures 9 x 8 mm and contributes to moderate-severe right lateral recess stenosis and moderate central canal stenosis. No neural foramina narrowing. L3-4: Disc degeneration with diffuse posterior disc bulge and superimposed central disc herniation resulting in severe spinal canal stenosis. Mild facet arthrosis. Mild left and no right neural foramen narrowing. L4-5: Moderate right and mild left facet arthrosis. Prominence of dorsal epidural fat. Mild narrowing of the thecal sac. Mild left neural foramen narrowing. L5-S1: Postoperative changes. No significant spinal canal stenosis or neural foramen narrowing. There is a T2 heterogeneous fluid collection located slightly to the right of midline at the S2-S4 levels measuring approximately 8.2 cm craniocaudally x 5.2 cm transversely x 3.2 cm AP the demonstrates rim enhancement, with increased STIR signal in the adjacent soft tissues concerning for infected collection. Additional fluid collection demonstrating heterogeneous T2 signal and rim enhancement located 1.3 cm inferior to the above collection measures 1.9 cm craniocaudal x 1.9 cm AP x 1.8 cm TR. Discussed with Dr. Duncan at 12:34 pm Impression: 1. Severe spinal canal stenosis at L3-4 and moderate central canal stenosis at L2-3 due to disc herniations and disc bulges. 2. Chronic postoperative changes of L5-S1 interbody cage placement, anterior plate and screw fixation, laminectomy, and bilateral pedicle screw and shane fixation. No evidence of discitis or osteomyelitis. No fluid collection at the laminectomy site. 3. There is an 8.2 cm fluid collection in the subcutaneous fat at the S2-S4 levels with rim enhancement and adjacent soft tissue edema concerning for pilonidal cyst/abscess in the appropriate clinical setting. 4. Additional 1.9 cm fluid collection in the subcutaneous fat located inferior to the above collection with similar imaging characteristics of uncertain sterility. Dictated by Evans Barillas MD @ 01/22/2023 12:34:08 PM (Electronically Signed)
[2023-01-22] MEDS: HYDROmorphone 0.5 mg/0.5 ml inj IVP (10:34)
--- NOTE | 2023-01-22 13:39 | PM.GSPRC ---
Operative Note Date of procedure: 01/22/23 Pre-op diagnosis: Right-sided pilonidal abscess Post-op diagnosis: Right-sided pilonidal abscess versus possible abscess from prior surgical incision Type of Procedure: Incision and drainage of abscess Indications: The patient is a 32-year-old male who presented with a week of pain. This started with nausea and fever and pressure on his tailbone. This gradually worsened and he came in to be seen. MRI was ordered and antibiotics were prescribed. His white blood cell count improved with antibiotics, however Estelle did not. He came in to be seen today was found to have an abscess in the pilonidal region, however there was additional non specific fluid extending further up. There was some concern that this could be communicating with the patient's hardware were from his prior back surgery. MRI was then obtained which showed 2 fluid collections in the back which were felt to be subcutaneous in nature without any evidence of fluid around the hardware site. It was felt that this was likely business development representative of a pilonidal cyst and therefore the decision was made to proceed to OR for incision and drainage. The patient agreed to proceed after discussing risks and benefits Procedure Description: After discussing the risks and benefits of the procedure, the patient signed informed consent.? The operative site was marked and the patient was brought to the operating room and placed on the operating table in supine position.? He was then intubated by Anesthesia. The patient was then placed in the prone position. The operative site was then prepped and draped in the usual sterile fashion.? A time-out was then performed. The gluteal cleft was then examined. It was draining inferiorly. There was a fluctuant area just superior to this on the right. A knife was then used to create a skin incision. Copious purulent drainage returned. This was sent for culture. This was approximately 2 x 2 x 2 cm abscess cavity. On the MRI there was noted to be additional fluid cavity more superior. I was unable to palpate this and there were no connections to this smaller cavity. I obtained ultrasound and brought into the field and was able to identify a fluid pocket in the deep subcutaneous tissue. Using an 18 gauge spinal needle, I was able to aspirate this and confirm purulent material. I then extended initial incision to connect the 2 cavities. Again copious purulent material returned. I excised a small amount of subcutaneous fat in order to better connect the cavities so they would be able to be accessed for dressings. The larger cavity extended across the midline and superiorly. This was located under the inferior aspect of the patient's prior spinal fusion incision. It did not appear to track deep or superiorly. The area of abscess was superior and to the left the area of induration on the right superior buttock. The wound was then irrigated. Hemostasis was achieved with cautery. This was then packed with Kerlix soaked in Vashe and cover with an ABD. ? The patient was then woken and transported to the recovery area in stable condition. ? The patient tolerated the procedure well. Findings: Two abscess cavities; 1 located in the usual pilonidal cyst location, the 2nd located across the midline underlying the inferior aspect of the patient's prior spinal fusion incision. Anesthesia: GETA Surgeon: Indy Mo MD Estimated blood loss (mL): 5 Additional Specimen Information: Abscess fluid for culture Condition: stable Disposition: PACU
[2023-01-22] MEDS: PIPERACILLIN/TAZOBACTAM 3.375 GM INJ IVPB (13:52)
--- NOTE | 2023-01-22 15:03 | W.ANESCHARGE ---
Anesthesia Charges Start Date/Time Anesthesia Start Date: 01/22/23 Anesthesia Start Time: 13:34 Stop Date/Time Anesthesia Stop Date: 01/22/23 Anesthesia Stop Time: 14:37
[2023-01-22] MEDS: LACTATED RINGERS 1000 ML IV (16:17)
== END 2023-01-22 16:19 | disposition home or self-care (01) ==
LOC: ED 13:26 → SS 13:37
PROVIDERS: Emergency Provider Family Medicine; PCP Physician Assistant Medical; Referring Provider Surgery; Visit Provider Surgery
PROC: (CPT 10081; principal; 2023-01-22 13:15)
DX: L05.01 Pilonidal cyst with abscess (principal)
CPT/HCPCS: 10081; 00902; 36415; 72131; 72158; 72193; 80048; 83605; 85025; 86140; 87040; 87070; 87075; 87205; 99284; A9270; A9575; J0330; J1100; J1170; J1200; J1885; J2250; J2405; J2543; J2704; J3010; J3490; J7030; J7120; Q9967

== ENCOUNTER 2023-02-01 09:29 | Outpatient (CLI) | payer BC, SELFPAY ==
--- OUTSIDE RECORDS SUMMARY | 2023-02-01 09:34 | XMS_ITS | Continuity of Care Document ---
Author Name Unknown Organization [facility] Address [address] 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[employer] Name Role Phone Will MD NIELSEN, José Unavailable Unavailabl e Allergies, Adverse Reactions, Alerts Substance Reaction Status Criticality No Known Allergies Active No Inform ation Medications Medication Instructions Dosage Effective Dates (start - stop) Status Comments CLONAZEPAM (unknown strength) take 1 tablet by oral route 3 times every day as needed Not Available - Active lisinopril 20 mg-hydrochlorothiazi de 12.5 mg tablet take 1 tablet by oral route every day 1.00 tablet - Active propranolol 10 mg tablet take 1 tablet by oral route 3 times every day 10 MG - Active fluoxetine 20 mg capsule take 1 capsule by oral route every day in the morning 20 MG - Active MELATONIN (unknown strength) Not Available - Active IBUPROFEN (unknown strength) take 1 capsule by oral route every 6 hours as needed as needed Not Available - Active acetaminophen ER 650 mg tablet,extended release take 2 tablet by ORAL route every day as needed 1300 MG - Active Procedures Procedure Date ROUTINE BLOOD DRAW No Charge For Visit Per Prov DAST 15-30 MIN Foll-up eval q3mo opiod tx OFFICE/OUTPATIENT VISIT, EST Foll-up eval q3mo opiod tx OFFICE VISIT, EST TELEMEDICINE Foll-up eval q3mo opiod tx OFFICE VISIT, EST TELEMEDICINE ROUTINE BLOOD DRAW Drug Urine Toxology With Chromatography Drug test def 8-14 classes Foll-up eval q3mo opiod tx OFFICE VISIT, EST TELEMEDICINE 21 ROUTINE BLOOD DRAW Drug Urine Toxology With Chromatography Drug test def 1-7 classes Foll-up eval q3mo opiod tx OFFICE/OUTPATIENT VISIT, EST Foll-up eval q3mo opiod tx OFFICE VISIT, EST TELEMEDICINE Foll-up eval q3mo opiod tx OFFICE VISIT, EST TELEMEDICINE Drug test def 22+ classes Drug Urine Toxology With Chromatography No Charge For Visit Per Prov Foll-up eval q3mo opiod tx OFFICE VISIT, EST TELEMEDICINE Brief check in by md/qhp Foll-up eval q3mo opiod tx OFFICE VISIT, EST TELEMEDICINE Foll-up eval q3mo opiod tx OFFICE VISIT, EST TELEMEDICINE Drug Urine Toxology With Chromatography Drug test def 15-21 classes PT-FOCUSED HLTH RISK ASSMT Foll-up eval q3mo opiod tx OFFICE VISIT, EST TELEMEDICINE Foll-up eval q3mo opiod tx OFFICE/OUTPATIENT VISIT, NEW Advance Directives Directive Yes / No Effective Date File Name No Information Encounters Encounter Description Practice Location Reason(s) For Visit Diagnoses Date Provider Providers Copied on Encounter [facility], [address] [facility] [place], [id number] , [place] tel:[phone] [facility] Welcome No Information 2 Beto Kumar. [address] [facility] [place], [id number] , [place]. tel:[phone] [facility], [address] [facility] [place], [id number] , [place] tel: [phone] [facility] No Information 2 [facility]. [id number] [place] [address] [address], [place], [id number] , [place]. tel: [phone] OFFICE/OUTPAT IENT VISIT, EST [facility], [address] [place] [address] [place], [id number] , [place] tel: [phone] [facility] Back Pain (chief complaint) Chronic pain syndromePostlamine ctomy syndrome, not elsewhere classifiedRadiculo samanta, lumbar regionLong term (current) use of opiate analgesicPain in right hipEncounter for screening for other disorder 2 [facility]. [id number] [place] [address] [address], [place], [id number] , [place]. tel: [phone] Referring Provider: José Hendrix, [address] [place] [address] [place], [address] . tel:[phone] OFFICE VISIT, EST TELEMEDICINE [facility], [address] [place] [address] [place], [place], [id number] , [place] tel: [phone] [facility] Back Pain (chief complaint) Chronic pain syndromePostlamine ctomy syndrome, not elsewhere classifiedRadiculo samanta, lumbar regionLong term (current) use of opiate analgesicPain in right hip Sep-0 1 [facility]. [address] [place] [address] [address], [place], [id number] , [place]. tel: [phone] Referring Provider: José Hendrix, [address] [facility] [place], [address] . tel:[phone] OFFICE VISIT, EST TELEMEDICINE [facility], [address] [place] [address] [place], [id number] , [place] tel: [phone] [facility] Back Pain (chief complaint) Chronic pain syndromePostlamine ctomy syndrome, not elsewhere classifiedRadiculo samanta, lumbar regionLong term (current) use of opiate analgesicPain in right hip 1 Keke Coleman. [address], [place], [place], [id number] , [place]. tel: [phone] Referring Provider: José Hendrix, [address] [place], [address] . tel:[phone] [facility], [address] [place] [address] [place], [place], [id number] , [place] tel: [phone] [facility] Encounter for therapeutic drug level monitoringLong term (current) use of opiate analgesic 1 Keke Coleman. [address] [facility] [address], [place], [id number] , [place]. tel: [phone] Referring Provider: José Hendrix, [address] [place] [address] [place], [address] . tel:[phone] OFFICE VISIT, [facility] TELEMEDICINE [facility], [address] [place] [address] [place], [id number] , [place] tel: [phone] [facility] Back Pain (chief complaint) Chronic pain syndromePostlamine ctomy syndrome, not elsewhere classifiedRadiculo samanta, lumbar regionLong term (current) use of opiate analgesicPain in right hip 1 Keke Coleman. [address], [place], [id number] , [place]. tel: [phone] Referring Provider: José Hendrix, [address] [facility] [place], [address] . tel:[phone] [facility], [address] [place] [address] [place], [place], [id number] , [place] tel: [phone] [facility] No Information 1 Mallory Castro. [address] [facility], [place], [place], [id number] , [place]. tel: [phone] Referring Provider: José Hendrix, [address] [place], [address] . tel:[phone] OFFICE/OUTPAT IENT VISIT, [facility], [address] [facility] [place], [id number] , [place] tel: [phone] [facility] Low back pain (chief complaint) Chronic pain syndromePostlamine ctomy syndrome, not elsewhere classifiedRadiculo samanta, lumbar regionLong term (current) use of opiate analgesic 1 Mallory Castro. [address], [place], [id number] , [place]. tel: [phone] Referring Provider: José Hendrix, [address] [place] [address] [place], [address] . tel:[phone] OFFICE VISIT, [facility], [address] [place] [address] [place], [id number] , [place] tel: [phone] [facility] low back pain (chief complaint) Chronic pain syndromePostlamine ctomy syndrome, not elsewhere classifiedRadiculo samanta, lumbar regionLong term (current) use of opiate analgesicEncounter for therapeutic drug level monitoring 1 Emanisa [place]. [address] [facility] [facility] [address], [place], [place], [id number] , [place]. tel: [phone] Referring Provider: José Hendrix, [address] [place], [address] . tel:[phone] OFFICE VISIT, [facility], [address] [place] [address] [place], [id number] , [place] tel: [phone] [facility] low back pain (chief complaint) Chronic pain syndromePostlamine ctomy syndrome, not elsewhere classifiedRadiculo samanta, lumbar regionLong term (current) use of opiate analgesic Jun- 0 Nyongesa [place]. [address] [facility] [address] [facility] [address], [place], [place], [id number] , [place]. tel: [phone] Referring Provider: José Hendrix, [address] [facility] [place], [address] . tel:[phone] [facility], [address] [place] [address] [place], [id number] , [place] tel: [phone] [facility] [place] No Information 0- 0 Nyongesa [place]. [address] [facility] [address], [facility] [place], [id number] , [place]. tel: [phone] OFFICE VISIT, EST TELEMEDICINE [facility], [address] [facility] [place], [id number] , [place] tel: [phone] [facility] low back pain (chief complaint) Chronic pain syndromePostlamine ctomy syndrome, not elsewhere classifiedRadiculo samanta, lumbar regionLong term (current) use of opiate analgesic 8 0 Nyongesa [place]. [address] [facility] [address], [place], [place], [id number] , [place]. tel: [phone] Referring Provider: José Hendrix, [address] [place] [address] [place], [address] . tel:[phone] [facility], [address] [place] [address] [place], [id number] , [place] tel: [phone] [facility] No Information 2 0 Tejadasavanna Castro. [address] [facility] [address], [place], [id number] , [place]. tel: [phone] Referring Provider: José Hendrix, [address] [place] [address] [place], [address] . tel:[phone] OFFICE VISIT, EST TELEMEDICINE [facility], [address] [facility] [place], [id number] , [place] tel: [phone] [facility] low back pain (chief complaint) Chronic pain syndromePostlamine ctomy syndrome, not elsewhere classifiedRadiculo samanta, lumbar regionLong term (current) use of opiate analgesic 0 Nyongesa [place]. [address] [facility] [address], [place], [place], [id number] , [place]. tel:[phone] Referring Provider: José Hendrix, [address] [place] [address] [place], [address] . tel:[phone] OFFICE VISIT, [facility], [address] [place] [address] [place], [id number] , [place] tel: [phone] [facility] low back pain (chief complaint) Chronic pain syndromePostlamine ctomy syndrome, not elsewhere classifiedRadiculo samanta, lumbar regionLong term (current) use of opiate analgesic 0 Mimiongesa Coleman. [address] [facility] [address], [place], [id number] , [place]. tel: [phone] Referring Provider: José Hendrix, [address] [place] [address] [place], [address] . tel:[phone] [facility], [address] [place] [address], [id number] , [place] tel: [phone] [facility] No Information 0 Keke Coleman. [address] [facility] [address], [place], [id number] , [place]. [phone] Referring Provider: José Hendrix, [address] [place] [address] [place], [address] . tel:[phone] OFFICE VISIT, [facility], [address] [place] [address], [id number] , [place] tel: [phone] [facility] low back pain (chief complaint) Chronic pain syndromePostlamine ctomy syndrome, not elsewhere classifiedRadiculo samanta, lumbar regionEncounter for therapeutic drug level monitoring 0 Nyongesa [place]. [address] [facility] [address], [place], [id number] , [place]. tel: [phone] Referring Provider: Refugio Madden, [facility] [address] [facility] [address], [place], [address]. tel:[phone] OFFICE/OUTPAT IENT VISIT, [facility], [address] [facility] [address] [facility] [place], [id number] , [place] tel: [phone] [facility] low back pain (chief complaint) Chronic pain syndromePostlamine ctomy syndrome, not elsewhere classifiedRadiculo samanta, lumbar regionEncounter for therapeutic drug level monitoring 0 0 Keke Coleman. [address] [facility] [address], [place], [id number] , [place]. tel: [phone] Referring Provider: José Hendrix, [address] [facility] [place], [address] . tel:[phone] Family History Family Member Type Diagnosis Age At Onset No Information Payers Payer name Insurance type Covered republican ID Authoriza tion(s) No Information Social History Type Description Quantity Date Captured Comments Sex Male Smoking Status No Information Chief Complaint And Reason For Visit No Information Reason For Referral Reason For Referral No Information Plan Of Treatment Date Type Action Status Goal OARS. Due on due Goal UDT. 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 Due on due Goal AST (SGOT). Due on due Goal ALT (SGPT). Due on due Goal Order Annual PT. Due on due Goal Creatinine. Due on due Goal UPHOLSTERER OUTSIDE Scanned. Due on due Goal Medication Recon ciliation. Due on due Goal Tobacco Use. Due on due Goal PHQ-9. Due on du e Goal Review Allergy List. Due on due Goal Height. Due on d ue Goal Weight. Due on d ue Goal Update Social History. Due o n due Goal OARS. Due on due Goal UDT. 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 Due on due Goal AST (SGOT). Due on due Goal ALT (SGPT). Due on due Goal Order Annual PT. Due on due Goal Creatinine. Due on due Goal UPHOLSTERER OUTSIDE Scanned. Due on due Goal Medication Recon ciliation. Due on due Goal Tobacco Use. Due on due Goal PHQ-9. Due on du e Goal Review Allergy List. Due on due Goal Height. Due on d ue Goal Weight. Due on d ue Goal Update Social History. Due o n due Goal OARS. Due on due Goal UDT. 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 Due on due Goal AST (SGOT). Due on due Goal ALT (SGPT). Due on due Goal Order Annual PT. Due on due Goal Creatinine. Due on due Goal UPHOLSTERER OUTSIDE Scanned. Due on due Goal Medication Recon ciliation. Due on due Goal Tobacco Use. Due on due Goal PHQ-9. Due on du e Goal Review Allergy List. Due on due Goal Height. Due on d ue Goal Weight. Due on d ue Goal Update Social History. Due o n due Goal OARS. Due on due Goal UDT. 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 Due on due Goal AST (SGOT). Due on due Goal ALT (SGPT). Due on due Goal Order Annual PT. Due on due Goal Creatinine. Due on due Goal UPHOLSTERER OUTSIDE Scanned. Due on due Goal Medication Recon ciliation. Due on due Goal Tobacco Use. Due on due Goal PHQ-9. Due on du e Goal Review Allergy List. Due on due Goal Height. Due on d ue Goal Weight. Due on d ue Goal Update Social History. Due o n due Goal OARS. Due on due Goal UDT. 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 Due on due Goal AST (SGOT). Due on due Goal ALT (SGPT). Due on due Goal Order Annual PT. Due on due Goal Creatinine. Due on due Goal UPHOLSTERER OUTSIDE Scanned. Due on due Goal Medication Recon ciliation. Due on due Goal Tobacco Use. Due on due Goal PHQ-9. Due on du e Goal Review Allergy List. Due on due Goal Height. Due on d ue Goal Weight. Due on d ue Goal Update Social History. Due o n due Goal OARS. Due on due Goal UDT. 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 Due on due Goal AST (SGOT). Due on due Goal ALT (SGPT). Due on due Goal Order Annual PT. Due on due Goal Creatinine. Due on due Goal UPHOLSTERER OUTSIDE Scanned. Due on due Goal Medication Recon ciliation. Due on due Goal Tobacco Use. Due on due Goal PHQ-9. Due on du e Goal Review Allergy List. Due on due Goal Height. Due on d ue Goal Weight. Due on d ue Goal Update Social History. Due o n due Goal OARS. Due on due Goal UDT. 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 Due on due Goal AST (SGOT). Due on due Goal ALT (SGPT). Due on due Goal Order Annual PT. Due on due Goal Creatinine. Due on due Goal UPHOLSTERER OUTSIDE Scanned. Due on due Goal Medication Recon ciliation. Due on due Goal Tobacco Use. Due on due Goal PHQ-9. Due on du e Goal Review Allergy List. Due on due Goal Height. Due on d ue Goal Weight. Due on d ue Goal Update Social History. Due o n due Goal Medication Recon ciliation. Due on due Goal Tobacco Use. Due on due Goal PHQ-9. Due on du e Goal Review Allergy List. Due on due Goal Height. Due on d ue Goal Weight. Due on d ue Goal Update Social History. Due o n due Goal OARS. Due on due Goal UDT. 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 Due on due Goal AST (SGOT). Due on due Goal ALT (SGPT). Due on due Goal Order Annual PT. Due on due Goal Creatinine. Due on due Goal UPHOLSTERER OUTSIDE Scanned. Due on 021 due Future Order: Lab Order Drug Yuly t Def 22+ Classes (G0483), Ordered on: Ordered History Of Present Illness Encounter Date Complaint History Of Prese nt Illness Back Pain (comments) Flaquito is a 30 y/o male, meeting with us for follow up and medication refill in the setting of chronic low back and hip pain. He states his pain is worse this month. He is currently in PT and is doing stretches at home. He states when he takes a step he feels a shooting sensation in his groin. He reports the mid back pain is the worst area of pain today, but states it radiates into his groin a little. Of note, he is still w/o insurance today and states that his insurance should begin Sep 2021.Reports current medication regimen provides up to 100% pain relief and allows for increased functionality. He states he has not taken Oxycodone in a few weeks. He usually takes #1tab Oxycodone a day which provides 100% pain relief for 8 hours. He reports he takes a lot of Tylenol in the interim which causes GI upset and pain. Denies side effects from current medication regimen.No other concerns today. Back Pain Severity level i s 1. Duration: chronic. The problem is fluctuating. It occurs intermittently. The patient describes the pain as an ache and sharp. Symptoms are aggravated by running, standing, walking, housework and prolonged positioning. Symptoms are relieved by heat, lying down, pain meds/drugs, physical therapy, stretching, rest and changing positions. Back Pain Severity level i s 7. Duration: chronic. The problem is worsening. It occurs intermittently. Location of pain is lower back and hips.The patient describes the pain as an ache and sharp. Symptoms are aggravated by bending, lifting and housework. Symptoms are relieved by heat, lying down, pain meds/drugs, physical therapy and rest. Back Pain (comments) Flaquito is meeting with us today via [facility] Virtual Visit for follow up and medication refill. Low back and hip pain is worse this month, but medication does help to some extent. He feels his pain is moderately managed at this time. The shooting nerve pain in the right hip is now radiating into the left hip as well. Her has doubled up on his PT stretches which is somewhat helpful. The pain is worst at night and can cause insomnia. He notices that he often drags his right foot. He has not gotten a call regarding referral to [facility] yet.Reports current medication regimen provides up to 100% pain relief and allows for increased functionality. Denies side effects from current medication regimen.No other concerns today. Back Pain Severity level i s 7. Duration: chronic. The problem is stable. It occurs intermittently. Location of pain is lower back and right hip.The patient describes the pain as an ache, burning, sharp and tingling. Symptoms are aggravated by bending, lifting, housework and prolonged positioning. Symptoms are relieved by heat, pain meds/drugs, physical therapy, stretching and rest. Back Pain (comments) Flaquito is meeting with us today via [facility] Virtual Visit for follow up and medication refill. Low back and right hip pain persists this month, but medication does help to some extent. He feels his pain is moderately managed at this time. He continues HEP and stretching with benefit.He recently contracted COVID-19 (+) test, he is recovering well now. He will get re-tested after his quarantine period, 3 days left.Reports current medication regimen provides 90% pain relief and allows for increased functionality. Denies side effects from current medication regimen.No other concerns today. Back Pain Severity level i s 6. Duration: chronic. The problem is worsening. It occurs intermittently. Location of pain is lower back. Pain is radiated to the right thigh.The patient describes the pain as an ache, sharp and tingling. Symptoms are aggravated by bending, daily activities, twisting, prolonged positioning and housework. Symptoms are relieved by heat, ice, lying down, pain meds/drugs, physical therapy, stretching, rest and chiropractic. Back Pain (comments) Flaquito is here for follow-up. He returns with low back pain s/p lumbar fusion 1 yr ago. Pain has been worse. Low back pain will radiate down his R hip and groin which causes him to limp. Pain worse with movementHe recently transitioned to part-time at work d/t his pain. He recently followed up with his surgeon, Dr. Coleman at [facility] and imaging showed his fusion structurally intact. He is currently using Tylenol and Advil to manage his pain. Percocet prescribed last visit , has been helpful. Reports current medication regimen provides 90% pain relief and allows increased functionality. Denies side effects from current medication regimen. Last UDT with THC, not used any since. Plan to repeat UDTNo other concerns today. Low back pain (comments) Flaquito is here for follow-up; last follow- up on 08/10/20. He returns with low back pain s/p lumbar fusion 10 months ago. Pain has been worse. Low back pain will radiate down his R hip and groin which causes him to limp. He is not interested in imaging of his hip. He recently transitioned to part-time at work d/t his pain. He recently followed up with his surgeon, Dr. Coleman at [facility] and imaging showed his fusion structurally intact. He is currently using Tylenol and Advil to manage his pain. He is interested in restarting pain medication today as he tapered off percocet a few months ago.He is not accompanied. No other concerns today. Low back pain Severity level i s 8. Duration: chronic. The problem is stable. It occurs persistently. Location of pain is lower back.The patient describes the pain as an ache, burning and sharp. Symptoms are aggravated by ascending stairs, bending, changing positions, daily activities, descending stairs, jumping, lifting, twisting and walking. Symptoms are relieved by heat, lying down, pain meds/drugs, physical therapy, stretching and rest. low back pain Severity level i s 5. Duration: chronic. The problem is improving. It occurs intermittently. Location of pain is lower back.The patient describes the pain as an ache, numbness, sharp and tingling. Symptoms are aggravated by bending, lifting, twisting, housework and prolonged positioning. Symptoms are relieved by heat, pain meds/drugs, physical therapy, stretching and rest. low back pain (comments) Flaquito is meeting with us today via [facility] Virtual Visit for following up and medication refill. Low back pain persists this month but tolerable with medication. He is 6 months post op spinal surgery. Reports increased ROM and strength, continues PT stretches and exercises at home with benefit. His low back and leg pain has decreased as well. He rarely has shooting, tingling pain in his legs now. Reports relief in pain flares from lumbar JD in the past- requests repeat in future , he does not recall where he did them in the pastReports current medication regimen provides 90% pain relief and allows for increased functionality. Denies side effects from current medication regimen.No other concerns today. low back pain (comments) Flaquito is meeting with us today via [facility] Virtual Visit for following up and medication refill. Low back pain persists this month but tolerable with medication. He reports weekly improvement in low back pain since fusion. End goal is to completely wean off narcotics. He not taking any gabapentin - declines to addReports current medication regimen provides 90% pain relief and allows for increased functionality. Denies side effects from current medication regimen.No other concerns today. low back pain Severity level i s 6. Duration: chronic. The problem is improving. It occurs intermittently. Location of pain is lower back and hips.The patient describes the pain as an ache and tingling. Symptoms are aggravated by bending, standing, twisting, walking, movement and housework. Symptoms are relieved by heat, ice, lying down, pain meds/drugs, physical therapy, stretching and rest. low back pain (comments) Flaquito is meeting with us today via [facility] Virtual Visit for following up and medication refill. Low back pain has improved since surgery, tolerable with medication. He completed his L5, S1 fusion on 02/09/[address] Coronel at [facility] which was a success. The sharp, shooting pain has resolved since the surgery, but no he has aching pain in the low back which is aggravated by prolonged postioning and standing.Reports current medication regimen provides 90% pain relief and allows for increased functionality. Denies side effects from current medication regimen. After surgery he was given tizanidine, oxycodone, and vitamin D.No other concerns today. low back pain Severity level i s 5. Duration: chronic. The problem is improving. It occurs intermittently. Location of pain is lower back and right hip.The patient describes the pain as an ache and sharp. Symptoms are aggravated by standing, housework and prolonged positioning. Symptoms are relieved by ice, lying down, pain meds/drugs, physical therapy and changing positions. low back pain (comments) Flaquito is meeting with us today via [employer] Virtual Visit for following up and medication refill. Low back pain persists this month, tolerable with medication. He continues to complete PT exercise at home daily. He has been playing tennis twice a week as well to increase activity level.Reports current medication regimen provides 85% pain relief and allows for increased functionality. Denies side effects from current medication regimen.No other concerns today. low back pain Severity level i s 7. Duration: chronic. The problem is stable. It occurs persistently. Location of pain is lower back.The patient describes the pain as an ache, burning, numbness, sharp and tingling. Symptoms are aggravated by bending, lifting, twisting, movement and housework. Symptoms are relieved by heat, lying down, pain meds/drugs, rest, changing positions and chiropractic. low back pain (comments) Flaquito is meeting with us today via [employer] Virtual Visit for following up and medication refill. Low back pain has improved this month, tolerable with medication. He is still considering surgery but it hesitant and would like to use as last resort. Scheduling is still ow available anyway.Reports current medication regimen provides 85% pain relief and allows for increased functionality. Denies side effects from current medication regimen. He reports significant increase in activity and daily functioning since starting oxycodone. He can now go bowling with his friends and has a higher quality of life.No other concerns today. low back pain Severity level i s 6. Duration: chronic. The problem is improving. It occurs persistently. Location of pain is lower back and hips.The patient describes the pain as an ache, burning and sharp. Symptoms are aggravated by bending, lifting, standing, housework and movement. Symptoms are relieved by heat, lying down, pain meds/drugs, physical therapy, stretching and rest. low back pain Severity level i s 8. Duration: chronic. The problem is stable. It occurs persistently. Location of pain is lower back.The patient describes the pain as numbness, sharp and tingling. Symptoms are aggravated by bending, standing, movement and housework. low back pain (comments) Flaquito is here for a followup after initial consult via [facility] Visit. Low back pain persists, tolerable with medication.Reports current medication regimen provides 90% pain relief and allows for increased functionality. Denies side effects from current medication regimen.Still need UDT on file and OARSNo other concerns today. low back pain Severity level i s 7. Duration: chronic. It occurs persistently. Location of pain is lower back and left leg.The patient describes the pain as burning, numbness, stabbing and pins and needles. Symptoms are aggravated by bending, changing positions, lifting, running, sitting, standing and twisting. Symptoms are relieved by heat, lying down, pain meds/drugs, physical therapy and rest. low back pain (comments) Flaquito is here for an initial consult via [facility] Visit and presents with low back and left leg pain, s/p BL L5, S1 discectomy 2017 by [facility] due to herniated disc. He explains that the pain began in back that progressed to inhibit daily activities. He then consulted his doctor and surgeon where MRI was ordered and diagnosis given. Reports pain relief for 1.5 years after surgery, the pain began to return about 3 months ago. He is considering on a spinal fusion surgery, currently postponed due to pandemic. The pain in the left leg radiates into the buttock and thigh, does not go past knee. Reports left foot numbness as well. PT says he has decreased strength in left leg and foot.Referred by Dr. Refugio Madden. MRI at [facility] labs 10/14/19.Treatment Tried:cyclobenzaprine, methocarbamol - helpful for sleep but little pain relief.ibuprofen, naproxen, Tylenol, tramadol.hydrocodone - somewhat helpful.oxycodone 1tab for 6hours of pain relief -helpful.PT at [facility] 10/23 - helpful.nerve block - helpful.Pt goal: [facility] to take over pain management.Reports hx of anxiety attacks, takes lorazepam rx'ed by PCP. Admits to [facility] 2018. Functional Status Date Functional Assessmen t No Information Instructions Date Instruction Additional Infor mation No Information Assessments Type Assessment Date No Information Patient Care Teams Name Effective Dates (start - stop) Status Members No Information
== END 2023-02-01 09:30 | disposition home or self-care (01) ==
PROVIDERS: PCP Physician Assistant Medical; Visit Provider Physician Assistant Medical
DX: D64.9 Anemia, unspecified (principal); I10 Essential (primary) hypertension; R79.89 Other specified abnormal findings of blood chemistry; E78.1 Pure hyperglyceridemia; F41.9 Anxiety disorder, unspecified; L05.91 Pilonidal cyst without abscess
CPT/HCPCS: 82607; 83540; 83550; 86140

== ENCOUNTER 2023-06-15 16:27 | Outpatient (CLI) | payer BC, SELFPAY ==
--- OUTSIDE RECORDS SUMMARY | 2023-06-15 16:29 | XMS_ITS | Continuity of Care Document ---
Author Name Unknown Organization [facility] queta Address [address] [place] [address] Phone Care Team Providers Care Tutor Coordinator Name Role Phone Will MD NIELSEN, José [...] Diagnoses Date Provider Providers Copied on Encounter [facility], [address] [place], [id number] , [place] tel:[phone] [facility] [place] No Information 2 Beto Kumar. [address] [place], [id number] , [place]. tel:[phone] [facility], [address] [place], [id number] , [place] tel: [phone] [facility] No Information 2 [facility]. [address] [place] [address] [address], [place], [id number] , [place]. tel: [phone] OFFICE/OUTPAT IENT VISIT, EST [facility], [address] [place] [address] [place], [id number] , [place] tel: [phone] [facility] Back Pain (chief complaint) Chronic pain syndromePostlamine ctomy syndrome, not elsewhere classifiedRadiculo samanta, lumbar regionLong term (current) use of opiate analgesicPain in right hipEncounter for screening for other disorder 2 [facility]. [id number] [place] [address] [address], [place], [id number] , [place]. tel: [phone] Referring Provider: José Hendrix, [address] [place] [address] [place], [address] . tel:[phone] OFFICE VISIT, EST TELEMEDICINE [facility], [address] [place] [address] [place], [id number] , [place] tel: [phone] [facility] Back Pain (chief complaint) Chronic pain syndromePostlamine ctomy syndrome, not elsewhere classifiedRadiculo samanta, lumbar regionLong term (current) use of opiate analgesicPain in right hip Sep-0 1 [facility]. [address] [place] [address] [address], [place], [id number] , [place]. tel: [phone] Referring Provider: José Hendrix, [address] [place], [address] . tel:[phone] OFFICE VISIT, EST TELEMEDICINE [facility], [address] [place] [address] [place], [id number] , [place] tel: [phone] [facility] Back Pain (chief complaint) Chronic pain syndromePostlamine ctomy syndrome, not elsewhere classifiedRadiculo samanta, lumbar regionLong term (current) use of opiate analgesicPain in right hip 1 Keke Coleman. [address], [place], [place], [id number] , [place]. tel: [phone] Referring Provider: José Hendrix, [address] [place], [address] . tel:[phone] [facility], [address] [place] [address] [place], [place], [id number] , [place] tel: [phone] [facility] Encounter for therapeutic drug level monitoringLong term (current) use of opiate analgesic 1 Keke Coleman. [address] [facility] [address], [place], [id number] , [place]. tel: [phone] Referring Provider: José Hendrix, [address] [place] [address] [place], [address] . tel:[phone] OFFICE VISIT, [facility] TELEMEDICINE [facility], [address] [place] [address] [place], [id number] , [place] tel: [phone] [facility] Back Pain (chief complaint) Chronic pain syndromePostlamine ctomy syndrome, not elsewhere classifiedRadiculo samanta, lumbar regionLong term (current) use of opiate analgesicPain in right hip 1 Keke Coleman. [address], [place], [id number] , [place]. tel: [phone] Referring Provider: José Hendrix, [address] [facility] [place], [address] . tel:[phone] [facility], [address] [place] [address] [place], [place], [id number] , [place] tel: [phone] [facility] No Information 1 Mallory Csatro. [address], [place], [place], [id number] , [place]. tel: [phone] Referring Provider: José Hendrix, [address] [place], [address] . tel:[phone] OFFICE/OUTPAT IENT VISIT, [facility], [address] [place], [id number] , [place] tel: [phone] [facility] Low back pain (chief complaint) Chronic pain syndromePostlamine ctomy syndrome, not elsewhere classifiedRadiculo samanta, lumbar regionLong term (current) use of opiate analgesic 1 Mallory Castro. [address], [place], [place], [id number] , [place]. tel: [phone] Referring Provider: José Hendrix, [address] [place] [address] [place], [address] . tel:[phone] OFFICE VISIT, [facility], [address] [place] [address] [place], [id number] , [place] tel: [phone] [facility] low back pain (chief complaint) Chronic pain syndromePostlamine ctomy syndrome, not elsewhere classifiedRadiculo samanta, lumbar regionLong term (current) use of opiate analgesicEncounter for therapeutic drug level monitoring 1 Emanisa [place]. [address], [place], [place], [address] , [place]. tel: [phone] Referring Provider: José Hendrix, [address] [place], [address] . tel:[phone] OFFICE VISIT, [facility], [address] [place] [address] [place], [address] , [place] tel: [phone] [facility] low back pain (chief complaint) Chronic pain syndromePostlamine ctomy syndrome, not elsewhere classifiedRadiculo samanta, lumbar regionLong term (current) use of opiate analgesic Jun- 0 Nyongesa [place]. [address], [place], [place], [id number] , [place]. tel: [phone] Referring Provider: José Hendrix, [address] [place], [address] . tel:[phone] [facility], [address] [place] [address] [place], [id number] , [place] tel: [phone] [facility] [place] No Information 0- 0 Nyongesa [place]. [address] [facility] [address], [facility] [place], [place], [address] , [place]. tel: [phone] OFFICE VISIT, EST TELEMEDICINE [facility], [address] [place], [id number] , [place] tel: [phone] [facility] low back pain (chief complaint) Chronic pain syndromePostlamine ctomy syndrome, not elsewhere classifiedRadiculo samanta, lumbar regionLong term (current) use of opiate analgesic 8 0 Nyongesa [place]. [address] [facility] [address], [place], [place], [id number] , [place]. tel: [phone] Referring Provider: José Hendrix, [address] [place] [address] [place], [address] . tel:[phone] [facility], [address] [place] [address] [place], [id number] , [place] tel: [phone] [facility] No Information 2 0 Tejadasavanna Castro. [address] [facility] [address], [place], [id number] , [place]. tel: [phone] Referring Provider: José Hendrix, [address] [place] [address] [place], [address] . tel:[phone] OFFICE VISIT, EST TELEMEDICINE [facility], [address] [place], [address] , [place] tel: [phone] [facility] low back pain (chief complaint) Chronic pain syndromePostlamine ctomy syndrome, not elsewhere classifiedRadiculo samanta, lumbar regionLong term (current) use of opiate analgesic 0 Nyongesa [place]. [address] [facility] [address], [place], [place], [address] , [place]. tel:[phone] Referring Provider: José Hendrix, [address] [place] [address] [place], [address] . tel:[phone] OFFICE VISIT, [facility], [address] [place] [address] [place], [id number] , [place] tel: [phone] [facility] low back pain (chief complaint) Chronic pain syndromePostlamine ctomy syndrome, not elsewhere classifiedRadiculo samanta, lumbar regionLong term (current) use of opiate analgesic 0 Mimiongesa Coleman. [address], [place], [id number] , [place]. tel: [phone] Referring Provider: José Hendrix, [address] [place] [address] [place], [address] . tel:[phone] [facility], [address] [place] [address], [id number] , [place] tel: [phone] [facility] No Information 0 Keke Coleman. [address], [place], [id number] , [place]. tel:[phone] Referring Provider: José Hendrix, [address] [place] [address] [place], [address] . tel:[phone] OFFICE VISIT, [facility], [address] [place] [address], [id number] , [place] tel: [phone] [facility] low back pain (chief complaint) Chronic pain syndromePostlamine ctomy syndrome, not elsewhere classifiedRadiculo samanta, lumbar regionEncounter for therapeutic drug level monitoring 0 Nyongesa [place]. [address], [place], [id number] , [place]. tel: [phone] Referring Provider: Refugio Madden, [facility] [place] [address] [facility] [facility] [address], [place], [address]. tel:[phone] OFFICE/OUTPAT IENT VISIT, [facility], [address] [place], [id number] , [place] tel: [phone] [facility] low back pain (chief complaint) Chronic pain syndromePostlamine ctomy syndrome, not elsewhere classifiedRadiculo samanta, lumbar regionEncounter for therapeutic drug level monitoring 0 0 Keke Coleman. [address], [place], [id number] , [place]. tel: [phone] Referring Provider: José Hendrix, [address] [place], [address] . tel:[phone] Family History Family Member Type Diagnosis Age At Onset No Information Payers Payer name Insurance type Covered libertarian ID Authoriza tion(s) No Information Social History Type Description Quantity Date Captured Comments Sex Male Smoking Status No Information Chief Complaint And Reason For Visit No Information Reason For Referral Reason For Referral No Information Plan Of Treatment Date Type Action Status Goal ALT (SGPT). Due on due Goal OARS. Due on due Goal Creatinine. Due on due Goal Medication Recon ciliation. Due on due Goal Review Allergy List. Due on due Goal Update Social History. Due o n due Goal Weight. Due on d ue Goal Tobacco Use. Due on due Goal PHQ-9. Due on du e Goal Height. Due on d ue Goal UDT. Due on due Goal AST (SGOT). Due on due Goal ICU REGISTERED NURSE Scanned. Due on due Goal Order Annual PT. Due on due Goal SILHOUETTE ARTIST Paperwork. Due on due Goal Review Allergy List. Due on due Goal UDT. Due on due Goal Weight. Due on d ue Goal Update Social History. Due o n due Goal Medication Recon ciliation. Due on due Goal PHQ-9. Due on du e Goal Order Annual PT. Due on due Goal Creatinine. Due on due Goal ALT (SGPT). Due on due Goal Tobacco Use. Due on due Goal ICU REGISTERED NURSE Scanned. Due on due Goal SILHOUETTE ARTIST Paperwork. Due on due Goal Height. Due on d ue Goal AST (SGOT). Due on due Goal OARS. Due on due Goal Medication Recon ciliation. Due on due Goal Review Allergy List. Due on due Goal Update Social History. Due o n due Goal OARS. Due on due Goal Tobacco Use. Due on due Goal AST (SGOT). Due on due Goal UDT. Due on due Goal Creatinine. Due on due Goal ALT (SGPT). Due on due Goal ICU REGISTERED NURSE Scanned. Due on due Goal SILHOUETTE ARTIST Paperwork. Due on due Goal PHQ-9. Due on du e Goal Height. Due on d ue Goal Weight. Due on d ue Goal Order Annual PT. Due on due Goal Update Social History. Due o n due Goal Height. Due on d ue Goal SILHOUETTE ARTIST Paperwork. Due on due Goal Medication Recon ciliation. Due on due Goal Order Annual PT. Due on due Goal Weight. Due on d ue Goal ICU REGISTERED NURSE Scanned. Due on due Goal UDT. Due on due Goal OARS. Due on due Goal Tobacco Use. Due on due Goal PHQ-9. Due on du e Goal AST (SGOT). Due on due Goal ALT (SGPT). Due on due Goal Review Allergy List. Due on due Goal Creatinine. Due on due Goal PHQ-9. Due on du e Goal Medication Recon ciliation. Due on due Goal SILHOUETTE ARTIST Paperwork. Due on due Goal Review Allergy List. Due on due Goal Tobacco Use. Due on due Goal ICU REGISTERED NURSE Scanned. Due on due Goal Order Annual PT. Due on due Goal ALT (SGPT). Due on due Goal AST (SGOT). Due on due Goal UDT. Due on due Goal Weight. Due on d ue Goal Creatinine. Due on due Goal Update Social History. Due o n due Goal Height. Due on d ue Goal OARS. Due on due Goal UDT. Due on due Goal Order Annual PT. Due on due Goal Height. Due on d ue Goal Tobacco Use. Due on due Goal PHQ-9. Due on du e Goal OARS. Due on due Goal SILHOUETTE ARTIST Paperwork. Due on due Goal AST (SGOT). Due on due Goal Weight. Due on d ue Goal Medication Recon ciliation. Due on due Goal ALT (SGPT). Due on due Goal ICU REGISTERED NURSE Scanned. Due on due Goal Update Social History. Due o n due Goal Review Allergy List. Due on due Goal Creatinine. Due on due Goal Height. Due on d ue Goal SILHOUETTE ARTIST Paperwork. Due on due Goal Review Allergy List. Due on due Goal ALT (SGPT). Due on due Goal Creatinine. Due on due Goal Order Annual PT. Due on due Goal ICU REGISTERED NURSE Scanned. Due on due Goal AST (SGOT). Due on due Goal Medication Recon ciliation. Due on due Goal Update Social History. Due o n due Goal UDT. Due on due Goal OARS. Due on due Goal Tobacco Use. Due on due Goal PHQ-9. Due on du e Goal Weight. Due on d ue Goal OARS. Due on due Goal Medication Recon ciliation. Due on due Goal UDT. Due on due Goal Tobacco Use. Due on due Goal PHQ-9. Due on du e Goal Review Allergy List. Due on due Goal Height. Due on d ue Goal Weight. Due on d ue Goal SILHOUETTE ARTIST Paperwork. Due on due Goal Update Social History. Due o n due Goal AST (SGOT). Due on due Goal ALT (SGPT). Due on due Goal Order Annual PT. Due on due Goal Creatinine. Due on due Goal ICU REGISTERED NURSE Scanned. Due on 021 due Future Order: [...] up with his surgeon, Dr. Coleman at [facility] and imaging showed his fusion structurally intact. [...] up with his surgeon, Dr. Coleman at [facility] and imaging showed his fusion structurally intact. [...] fusion on 02/09/[address] Coronel at [facility] which was a success. The sharp, [...] Flaquito is meeting with us today via [employer] Virtual Visit for following up and medication [...] Flaquito is meeting with us today via [employer] Virtual Visit for following up and medication [...] s/p BL L5, S1 discectomy 2017 by [facility] due to herniated disc. He explains that [...] foot.Referred by Dr. Refugio Madden. MRI at [facility] labs 10/14/19.Treatment Tried:cyclobenzaprine, methocarbamol - helpful for sleep but little pain relief.ibuprofen, naproxen, Tylenol, tramadol.hydrocodone - somewhat helpful.oxycodone 1tab for 6hours of pain relief -helpful.PT at [facility] 10/23 - helpful.nerve block [...]
--- OUTSIDE RECORDS SUMMARY | 2023-06-15 16:29 | XMS_ITS | Continuity of Care Document ---
Author Name Unknown Organization [facility] Address [address] [address] [place] [address] Phone Care Team Providers Care Debt Management Counselor Name Role Phone Zandra QUALITY RN, Alessandra Unavailable Unavailable Allergies, Adverse Reactions, Alerts Substance Reaction Status Criticality No Known Allergies Active No Inform ation Medications Medication Instructions Dosage Effective Dates (start - stop) Status Comments Mavyret 100 mg-40 mg tablet take 3 tablet by oral route every day 3.00 tablet - Active Procedures Procedure Date Routine Serum Collection New Level 4 Routine Serum Collection Advance Directives Directive Yes / No Effective Date File Name No Information Encounters Encounter Description Practice Location Reason(s) For Visit Diagnoses Date Provider Providers Copied on Encounter [facility], [address] [address], [place], [place], [id number], [place] tel:[phone] [facility] No Information 3 Zandra QUALITY RN Alessandra. [address] [facility], [place] [address], [place], [place], [id number] , [place]. tel:[phone] [facility], [address] [address], [place], [place], [id number], tel:[phone] [facility] Chronic hepatitis C without hepatic coma 3 Zemple QUALITY RN Alessandra. [address] [facility], [facility] [address], [place], [place], [id number] , [place]. tel:[phone] Referring Provider: Teri JERRY, [address] [place], [address]. tel:[phone] [facility], [address] [address], [place], [place], [id number], [place] tel:[phone] [facility] No Information 3 Estrada Castro. [address] [facility], [place] [address], [place], [place], [id number] , [place]. tel: [phone] [facility], [address] [address], [place], [place], [id number], [place] tel:[phone] [facility] No Information 2 Zemple QUALITY RN Alessandra. [address], [id number] , [place]. tel: [phone] [facility] Level 4 [facility], [address] [address], [place], [place], [id number], [place] tel:[phone] [facility] GI Symptoms or Concerns (chief complaint) Chronic hepatitis C without hepatic coma 2 Zemple QUALITY RN Alessandra. [address] [place] [address], [place], [place], [id number] , [place]. tel: [phone] Referring Provider: Teri JERRY, [address] [place] [address], [address]. tel:[phone] [facility], [address] [address], [place], [place], [id number], [place] tel:[phone] [facility] Chronic viral hepatitis C 2 Zemple QUALITY RN Alessandra. [address] [place] [address], [id number] , [place]. tel:[phone] Referring Provider: Teri JERRY, [address] [place], [address]. tel:[phone] [facility], [address] [address], [place], [place], [id number], [place] tel:[phone] [facility] Chronic hepatitis C without hepatic coma 2 Zandra Aparicio. [address] [facility], [facility] [address], [place], [place], [id number] , . tel:[phone] Family History Family Member Type Diagnosis Age At Onset Mother Problem (finding) Alcoholism Mother Problem (finding) Cirrhosis Father Problem (finding) Diverticular disease Immunizations Vaccine Date Status Comments SARS-COV-2 (COVID-19) vaccin e, mRNA, spike protein, LNP, bivalent booster, preservative free, 30 mcg/0.3 mL dose, thomas-sucrose formulation administered Note: [facility] bi-d irectional interface ; Source: Other Registry SARS-COV-2 (COVID-19) vaccin e, mRNA, spike protein, LNP, preservative free, 30 mcg/0.3mL dose administered Note: [facility] bi-direct ional interface ; Source: Other Registry SARS-COV-2 (COVID-19) vaccin e, mRNA, spike protein, LNP, preservative free, 30 mcg/0.3mL dose administered Note: [facility] bi-direct ional interface ; Source: Other Registry Afluria Qd administered Note: [facility] bi-directional interface ; Source: Other Registry meningococcal polysaccharide (groups A, C, Y and W-135) diphtheria toxoid conjugate vaccine (MCV4P) administered Note: [facility] bi-direct ional interface ; Source: Other Registry Afluria Qd administered Note: [facility] bi-directional interface ; Source: Other Registry Engerix-B administered Note: [facility] bi-d irectional interface ; Source: Other Registry Engerix-B administered Note: [facility] bi-d irectional interface ; Source: Other Registry human papilloma virus vaccin e, quadrivalent administered Note: [facility] bi-direct ional interface ; Source: Other Registry Engerix-B administered Note: [facility] bi-d irectional interface ; Source: Other Registry human papilloma virus vaccin e, quadrivalent administered Note: [facility] bi-direct ional interface ; Source: Other Registry human papilloma virus vaccin e, quadrivalent administered Note: [facility] bi-direct ional interface ; Source: Other Registry tetanus toxoid, reduced diphtheria toxoid, and acellular pertussis vaccine, adsorbed administered Note: [facility] b i-directional interface ; Source: Other Registry Payers Payer name Insurance type Covered republican ID Authoriza tianna(s) [employer] Of [facility] [id number] Social History Type Description Quantity Date Captured Comments Sex Male Smoking Status No Information Chief Complaint And Reason For Visit No Information Reason For Referral Reason For Referral No Information Plan Of Treatment Date Type Action Status Referral Ordered: Ultrasound Elastography With Abdomen, Limited Appointment date/timeframe: 03/24/2022 ordered History Of Present Illness Encounter Date Complaint History Of Prese nt Illness GI Symptoms or Concerns This gen ashely is referred to the office by Teri Varela PA-C for evaluation of chronic hepatitis C infection. The patient is evaluated via virtual visit. He gave verbal consent for the visit. His , Valencia, also participated in today's visit. I actually spoke with Flaquito by phone a few days ago, at the request of his PCP to discuss the new diagnosis of hepatitis C.The patient does admit to a history of IV drug use many years ago. Was not aware of the hepatitis C diagnosis until a few months ago. Lab work from [facility] showed elevated liver tests with AST and ALT in the 200s. The HCV RNA is 366,000 international units per mL. HIV antibody was negative, hepatitis B surface antigen negative and hepatitis B surface antibody was positive consistent with immunity. He has had liver ultrasound, which shows diffuse fatty infiltration of the liver, but nothing to suggest more significant underlying liver disease. He had further laboratory testing in our offi Functional Status Date Functional Assessmen t No Information Instructions Date Instruction Additional Infor mation No Information Assessments Type Assessment Date No Information Patient Care Teams Name Effective Dates (start - stop) Status Members No Information
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
[2023-06-16 00:17] LABS: Chlamydia DNA Amplified* NOT DETECTED (No Detected); GC DNA Amplified* NOT DETECTED (No Detected)
== END 2023-06-15 16:28 | disposition home or self-care (01) ==
LOC: LKVREF 16:27
PROVIDERS: PCP Physician Assistant Medical; Visit Provider Physician Assistant Medical
DX: Z11.3 Encounter for screening for infections with a predominantly sexual mode of transmission (principal)
CPT/HCPCS: 86592; 86703; 87341; 87491; 87522; 87591

== ENCOUNTER 2023-09-24 15:45 | Outpatient (CLI) | payer BC, SELFPAY ==
--- OUTSIDE RECORDS SUMMARY | 2023-09-24 15:51 | XMS_ITS | Continuity of Care Document ---
Author Name Unknown Organization [facility] queta Address [address] [place] [address] Phone Care Team Providers Care Sand Caster Apprentice Name Role Phone Will MD NIELSEN, José [...] Diagnoses Date Provider Providers Copied on Encounter [facility], [address] [place], [id number] , [place] tel:[phone] [facility] [place] No Information 2 Beto Kumar. [address] Lakeshia [place], [id number] , [place]. tel:[phone] [facility], [address] [place], [id number] , [place] tel: [phone] [facility] No Information 2 [facility]. [id number] [place] [address] [address], [place], [id number] , [place]. tel: [phone] OFFICE/OUTPAT IENT VISIT, EST [facility], [address] [place] [address] [place], [id number] , [place] tel: [phone] [facility] Back Pain (chief complaint) Chronic pain syndromePostlamine ctomy syndrome, not elsewhere classifiedRadiculo samanta, lumbar regionLong term (current) use of opiate analgesicPain in right hipEncounter for screening for other disorder 2 [facility]. [id number] [place] [address] [address], [place], [id number] , [place]. tel: [phone] Referring Provider: José Hendrix, [address] [place] [address] [place], [address] . tel:[phone] OFFICE VISIT, EST TELEMEDICINE [facility], [address] [place] [address] [place], [place], [id number] , [place] tel: [phone] [facility] Back Pain (chief complaint) Chronic pain syndromePostlamine ctomy syndrome, not elsewhere classifiedRadiculo samanta, lumbar regionLong term (current) use of opiate analgesicPain in right hip Sep-0 1 [facility]. [address] [place] [address] [address], [place], [id number] , [place]. tel: [phone] Referring Provider: José Hendrix, [address] [facility] [place], [address] . tel:[phone] OFFICE VISIT, EST TELEMEDICINE [facility], [address] [place] [address] [place], [id number] , [place] tel: [phone] [facility] Back Pain (chief complaint) Chronic pain syndromePostlamine ctomy syndrome, not elsewhere classifiedRadiculo samanta, lumbar regionLong term (current) use of opiate analgesicPain in right hip 1 Keke Coleman. [address], [place], [place], [id number] , [place]. tel: [phone] Referring Provider: José Hendrix, [address] [place], [address] . tel:[phone] [facility], [address] [place] [address] [place], [place], [id number] , [place] tel: [phone] [facility] Encounter for therapeutic drug level monitoringLong term (current) use of opiate analgesic 1 Keke Coleman. [address] [facility] [address], [place]AREL[place], [id number] , [place]. tel: [phone] Referring Provider: José Hendrix, [address] [place] [address] [place], [address] . tel:[phone] OFFICE VISIT, [facility] TELEMEDICINE [facility], [address] [place] [address] [place], [id number] , [place] tel: [phone] [facility] Back Pain (chief complaint) Chronic pain syndromePostlamine ctomy syndrome, not elsewhere classifiedRadiculo samanta, lumbar regionLong term (current) use of opiate analgesicPain in right hip 1 Keke Coleman. [address], [place], [id number] , [place]. tel: [phone] Referring Provider: José Hendrix, [address] [facility] [place], [address] . tel:[phone] [facility], [address] [place] [address] [place], [id number] , [place] tel: [phone] [facility] No Information 1 Mallory Castro. [address], [place], [place], [id number] , [place]. tel: [phone] Referring Provider: José Hendrix, [address] [place], [address] . tel:[phone] OFFICE/OUTPAT IENT VISIT, [facility], [address] [place], [id number] , [place] tel: [phone] [facility] Low back pain (chief complaint) Chronic pain syndromePostlamine ctomy syndrome, not elsewhere classifiedRadiculo samanta, lumbar regionLong term (current) use of opiate analgesic 1 Mallory Castro. [address], [place], [id number] , [place]. tel: [phone] Referring Provider: José Hendrix, [address] [place] [address] [place], [address] . tel:[phone] OFFICE VISIT, [facility], [address] [place] [address] [place], [id number] , [place] tel: [phone] [facility] low back pain (chief complaint) Chronic pain syndromePostlamine ctomy syndrome, not elsewhere classifiedRadiculo samanta, lumbar regionLong term (current) use of opiate analgesicEncounter for therapeutic drug level monitoring 1 Emanisa Virginia. [address], [place], [place], [id number] , [place]. tel: [phone] Referring Provider: José Hendrix, [address] [place], [address] . tel:[phone] OFFICE VISIT, [facility], [address] [place] [address] [place], [id number] , [place] tel: [phone] [facility] low back pain (chief complaint) Chronic pain syndromePostlamine ctomy syndrome, not elsewhere classifiedRadiculo samanta, lumbar regionLong term (current) use of opiate analgesic Jun- 0 Nyongesa [place]. [address], [place], [place], [id number] , [place]. tel: [phone] Referring Provider: José Hendrix, [address] [place], [address] . tel:[phone] [facility], [address] [place] [address] [place], [id number] , [place] tel: [phone] [facility] [place] No Information 0- 0 Nyongesa [place]. [address] [facility] [address], [facility] [place], [id number] , [place]. tel: [phone] OFFICE VISIT, EST TELEMEDICINE [facility], [address] [place], [id number] , [place] tel: [phone] [facility] low back pain (chief complaint) Chronic pain syndromePostlamine ctomy syndrome, not elsewhere classifiedRadiculo samanta, lumbar regionLong term (current) use of opiate analgesic 8 0 Nyongesa [place]. [address] [facility] [address], [place], [place], [id number] , [place]. tel: [phone] Referring Provider: José Hendrix, [address] [place] [address] [place], [address] . tel:[phone] [facility], [address] [place] [address] [place], [id number] , [place] tel: [phone] [facility] No Information 2 0 Tejadasavanna Castro. [address] [facility] [address], [place], [id number] , [place]. tel: [phone] Referring Provider: José Hendrix, [address] [place] [address] [place], [address] . tel:[phone] OFFICE VISIT, EST TELEMEDICINE [facility], [address] [place], [id number] , [place] tel: [phone] [facility] low back pain (chief complaint) Chronic pain syndromePostlamine ctomy syndrome, not elsewhere classifiedRadiculo samanta, lumbar regionLong term (current) use of opiate analgesic 0 Nyongesa [place]. [address] [facility] [address], [place], [place], [id number] , [place]. tel:[phone] Referring Provider: José Hendrix, [address] [place] [address] [place], [address] . tel:[phone] OFFICE VISIT, [facility], [address] [place] [address] [place], [id number] , [place] tel: [phone] [facility] low back pain (chief complaint) Chronic pain syndromePostlamine ctomy syndrome, not elsewhere classifiedRadiculo samanta, lumbar regionLong term (current) use of opiate analgesic 0 Mimiongesa Coleman. [address], [place], [id number] , [place]. tel: [phone] Referring Provider: José Hendrix, [address] [place] [address] [place], [address] . tel:[phone] [facility], [address] [place] [address], [id number] , [place] tel: [phone] [facility] No Information 0 Keke Coleman. [address], [place], [id number] , [place]. tel:[phone] Referring Provider: José Hendrix, [address] [place] [address] [place], [address] . tel:[phone] OFFICE VISIT, [facility], [address] [place] [address], [id number] , [place] tel: [phone] [facility] low back pain (chief complaint) Chronic pain syndromePostlamine ctomy syndrome, not elsewhere classifiedRadiculo samanta, lumbar regionEncounter for therapeutic drug level monitoring 0 Nyongesa [place]. [address], [place], [id number] , [place]. tel: [phone] Referring Provider: Refugio Madden, [facility] [address] [facility] [address], [place], [address]. tel:[phone] OFFICE/OUTPAT IENT VISIT, [facility], [address] [place], [id number] , [place] tel: [phone] [facility] low back pain (chief complaint) Chronic pain syndromePostlamine ctomy syndrome, not elsewhere classifiedRadiculo samanta, lumbar regionEncounter for therapeutic drug level monitoring 0 0 Keke Coleman. [address], [place], [id number] , [place]. tel: [phone] Referring Provider: José Hendrix, [address] [place]on [place], [address] . tel:[phone] Family History Family Member Type Diagnosis Age At Onset No Information Payers Payer name Insurance type Covered green party ID Authoriza tion(s) No Information Social History Type Description Quantity Date Captured Comments Sex Male Smoking Status No Information Chief Complaint And Reason For Visit No Information Reason For Referral Reason For Referral No Information Plan Of Treatment Date Type Action Status Goal OARS. Due on due Goal UDT. Due on due Goal SHIPPING AND RECEIVING OPERATOR Paperwork. Due on due Goal AST (SGOT). Due on due Goal ALT (SGPT). Due on due Goal Order Annual PT. Due on due Goal Creatinine. Due on due Goal NURSE ESTHETICIAN Scanned. Due on due Goal Medication Recon ciliation. Due on due Goal Tobacco Use. Due on due Goal PHQ-9. Due on du e Goal Review Allergy List. Due on due Goal Height. Due on d ue Goal Weight. Due on d ue Goal Update Social History. Due o n due Goal OARS. Due on due Goal UDT. Due on due Goal SHIPPING AND RECEIVING OPERATOR Paperwork. Due on due Goal AST (SGOT). Due on due Goal ALT (SGPT). Due on due Goal Order Annual PT. Due on due Goal Creatinine. Due on due Goal NURSE ESTHETICIAN Scanned. Due on due Goal Medication Recon ciliation. Due on due Goal Tobacco Use. Due on due Goal PHQ-9. Due on du e Goal Review Allergy List. Due on due Goal Height. Due on d ue Goal Weight. Due on d ue Goal Update Social History. Due o n due Goal OARS. Due on due Goal UDT. Due on due Goal SHIPPING AND RECEIVING OPERATOR Paperwork. Due on due Goal AST (SGOT). Due on due Goal ALT (SGPT). Due on due Goal Order Annual PT. Due on due Goal Creatinine. Due on due Goal NURSE ESTHETICIAN Scanned. Due on due Goal Medication Recon ciliation. Due on due Goal Tobacco Use. Due on due Goal PHQ-9. Due on du e Goal Review Allergy List. Due on due Goal Height. Due on d ue Goal Weight. Due on d ue Goal Update Social History. Due o n due Goal OARS. Due on due Goal UDT. Due on due Goal SHIPPING AND RECEIVING OPERATOR Paperwork. Due on due Goal AST (SGOT). Due on due Goal ALT (SGPT). Due on due Goal Order Annual PT. Due on due Goal Creatinine. Due on due Goal NURSE ESTHETICIAN Scanned. Due on due Goal Medication Recon ciliation. Due on due Goal Tobacco Use. Due on due Goal PHQ-9. Due on du e Goal Review Allergy List. Due on due Goal Height. Due on d ue Goal Weight. Due on d ue Goal Update Social History. Due o n due Goal OARS. Due on due Goal UDT. Due on due Goal SHIPPING AND RECEIVING OPERATOR Paperwork. Due on due Goal AST (SGOT). Due on due Goal ALT (SGPT). Due on due Goal Order Annual PT. Due on due Goal Creatinine. Due on due Goal NURSE ESTHETICIAN Scanned. Due on due Goal Medication Recon ciliation. Due on due Goal Tobacco Use. Due on due Goal PHQ-9. Due on du e Goal Review Allergy List. Due on due Goal Height. Due on d ue Goal Weight. Due on d ue Goal Update Social History. Due o n due Goal OARS. Due on due Goal UDT. Due on due Goal SHIPPING AND RECEIVING OPERATOR Paperwork. Due on due Goal AST (SGOT). Due on due Goal ALT (SGPT). Due on due Goal Order Annual PT. Due on due Goal Creatinine. Due on due Goal NURSE ESTHETICIAN Scanned. Due on due Goal Medication Recon ciliation. Due on due Goal Tobacco Use. Due on due Goal PHQ-9. Due on du e Goal Review Allergy List. Due on due Goal Height. Due on d ue Goal Weight. Due on d ue Goal Update Social History. Due o n due Goal OARS. Due on due Goal UDT. Due on due Goal SHIPPING AND RECEIVING OPERATOR Paperwork. Due on due Goal AST (SGOT). Due on due Goal ALT (SGPT). Due on due Goal Order Annual PT. Due on due Goal Creatinine. Due on due Goal NURSE ESTHETICIAN Scanned. Due on due Goal Medication Recon [...] due Goal UDT. Due on due Goal SHIPPING AND RECEIVING OPERATOR Paperwork. Due on due Goal AST (SGOT). Due on due Goal ALT (SGPT). Due on due Goal Order Annual PT. Due on due Goal Creatinine. Due on due Goal NURSE ESTHETICIAN Scanned. Due on 021 due Future Order: [...] up with his surgeon, Dr. Coleman at [facility] and imaging showed his fusion structurally [...] up with his surgeon, Dr. Coleman at [facility] and imaging showed his fusion structurally [...] stretching and rest. low back pain (comments) Flaqutio is meeting with us today via [employer] Virtual Visit for following up and medication refill. Low back pain has improved since surgery, tolerable with medication. He completed his L5, S1 fusion on 02/09/[address] Coronel at [facility] which was a success. The sharp, [...] Flaquito is meeting with us today via [employer] Virtual Visit for following up and medication [...] Flaquito is meeting with us today via [employer] Virtual Visit for following up and medication [...] foot.Referred by Dr. Refugio Madden. MRI at [facility] labs 10/14/19.Treatment Tried:cyclobenzaprine, methocarbamol - helpful for sleep but little pain relief.ibuprofen, naproxen, Tylenol, tramadol.hydrocodone - somewhat helpful.oxycodone 1tab for 6hours of pain relief -helpful.PT at [facility] 10/23 - helpful.nerve block [...]
--- OUTSIDE RECORDS SUMMARY | 2023-09-24 15:53 | XMS_ITS | Referral Summary ---
Author Name Unknown Organization [facility] Address [address] [place] [address] Care Team Providers Care Manager Non Profit Name Role Phone Teri Varela PA-C Primary Care Provider Allergies Active Allergy Reactions Criticality Noted Date Comments Hydroxyzine Rash Low 09/16/2014 Medications Medication Sig Dispensed Refills Start Date End Date Status BuPROPion HCl (WELLBUTRIN XL PO) Take 300 mg by mouth 0 Active Acetaminophen (TYLENOL PO) 0 Active ibuprofen (ADVIL/MOTRIN) 600 MG tablet Take 1 tablet (600 mg) by mouth every 6 hours as needed for moderate pain 60 tablet 0 11/17/2016 Active lisinopril-hydrochl orothiazide (PRINZIDE/ZESTORETI C) 10-6.25 MG per half-tab Take 1 tablet by mouth daily 0 Active oxyCODONE (ROXICODONE) 5 MG tablet Take 1 tablet (5 mg) by mouth every 6 hours as needed for severe pain 6 tablet 0 05/27/2022 Active lidocaine (LIDODERM) 5 % patch Place 1 patch onto the skin every 24 hours To prevent lidocaine toxicity, patient should be patch free for 12 hrs daily. 10 patch 0 09/05/2022 Active methylPREDNISolone (MEDROL DOSEPAK) 4 MG tablet therapy pack Follow Package Directions 21 tablet 0 09/05/2022 Active methocarbamol (ROBAXIN) 750 MG tablet Take 1 tablet (750 mg) by mouth 4 times daily as needed (muscle pain/spasm) 28 tablet 0 09/05/2022 Active Active Problems Patient Care Coordination No te Formatting of this note migh t be different from the original. EMERGENCY CARE PLAN Acute care plan for the following conditions: Frequent use of Emergency Services, Acute on Chronic pain Brief History of Condition: Patient has a history of frequent use of Emergency services and chronic pain. Expected home rescue plan: therapies from pain and/or PCP clinic. Authorized treatments in the Emergency Department: Department guideline for chronic/recurrent pain applies. Recommend use of a silverware washer and documentation of the same during all aspects of the history and physical examination. Follow up plan after an ED visit: Pain or PCP clinic. Initiated: September 2022 Problem Noted Date Diagnosed Date S/P lumbar fusion 04/22/2020 Anxiety 05/31/2017 Essential hypertension 05/31/2017 Mechanical low back pain 11/29/2016 History of drug abuse 08/31/2016 History of alcohol abuse 08/31/2016 Chemical dependency 10/04/2015 Eating disorder, unspecified 08/20/2014 Drug-seeking behavior 10/17/2013 Controlled substance agreement signed 07/09/2013 Depressive disorder 11/04/2012 Polysubstance (including opioids) dependence, bi nge pattern 11/04/2012 Resolved Problems Problem Noted Date Diagnosed Date Resolved Date Low back pain 10/08/2019 02/03/2020 Social History Tobacco Use Types Packs/Day Years Used Date Smoking Tobacco: Never Alcohol Use Standard Drinks/Week Comments No 0 (1 standard drink = 0.6 oz pur e alcohol) Adolescent Education Answer Date Record ed Getting School Help Needed Not on file 05/21 Sex and Gender Information Value Date Recorded Sex Assigned at Not on file Gender Identity Not on file Sexual Orientation Not on file Last Filed Vital Signs Vital Sign Reading Time Taken Comments Blood Pressure 104/66 01/17/2023 8:07 AM CDT Pulse 72 01/17/2023 8:07 AM CDT Temperature 36.1 ??C (97 ??F) 01/17/2023 6:07 AM CDT Respiratory Rate 18 01/17/2023 6:07 AM CDT Oxygen Saturation 97% 01/17/2023 8:08 AM CDT Inhaled Oxygen Concentration - - Weight 158.8 kg (350 lb) 05/26/2022 8:42 PM CDT Height 185.4 cm (6' 1) 05/26/2022 8:42 PM CDT Body Mass Index 46.18 05/26/2022 8:42 PM CDT Plan of Treatment Not on file Care Teams Manager Non Profit Relationship Specialty Start Date End Date Teri Varela PA-C [facility] [address] [place] [address] PCP - General Physician Medical Physics Researcher 05/26/22
[2023-09-25] LABS: Chlamydia DNA Amplified* Not Detected (No Detected); GC DNA Amplified* Not Detected (No Detected)
== END 2023-09-24 15:46 | disposition home or self-care (01) ==
PROVIDERS: PCP Physician Assistant Medical; Visit Provider Physician Assistant Medical
DX: Z20.6 Contact with and (suspected) exposure to human immunodeficiency virus [HIV] (principal)
CPT/HCPCS: 80076; 86592; 86703; 86706; 86803; 87340; 87491; 87591

== ENCOUNTER 2024-01-23 15:42 | Outpatient (CLI) | payer MEDICAID, SELFPAY ==
--- OUTSIDE RECORDS SUMMARY | 2024-02-01 07:00 | XMS_ITS | Clinical Summary ---
Author Organization [facility] Address [address] [place] [address] Care Team Providers Care Digester Hand Name Role Phone Unavailable Primary Care Provider Unavailabl e Source Comments You are receiving this document as you are listed as the primary care provider,follow-up provider, or the patient has been referred to you for consultation.This is in compliance with the Medicare and[facility] Health[employer] EHR Incentive Program,which states Providers who transition their patient to another setting of careor provider of care or refers their patient to another provider of care shouldprovide summary care record for each transition of care or referral. [facility] Allergies No known active allergies Medications Medication Sig Dispensed Refills Start Date End Date Status lisinopril (ZESTRIL) 10 MG tablet Take 10 mg by mouth daily. Active buPROPion (WELLBUTRIN XL) 300 MG 24 hour release tablet Take 300 mg by mouth daily. Active multivitamin (THERAGRAN) tablet Take 1 Tab by mouth daily. Active HYDROcodone-acetaminop hen (NORCO) 5-325 MG tablet Take 1-2 Tabs by mouth every 4 hours as needed for Pain. Active hydroCHLOROthiazide (ORETIC) 12.5 MG tabletIndications:Esse ntial hypertension (HRC) Take 1 Tab by mouth daily. 30 Tab 05/31/2017 Active triamcinolone (KENALOG) 0.1 % lotionIndications:Pois on brayan Apply topically two times daily as needed. 60 mL 05/31/2017 Active Active Problems Problem Noted Date Diagnosed Date Essential hypertension 05/31/2017 Depression 05/31/2017 Anxiety 05/31/2017 Social History Tobacco Use Types Packs/Day Years Used Date Smoking Tobacco: Never Smokeless Tobacco: Never Alcohol Use Standard Drinks/Week Comments No 0 (1 standard drink = 0.6 oz pur e alcohol) Sex and Gender Information Value Date Recorded Sex Assigned at Not on file Gender Identity Not on file Sexual Orientation Not on file Last Filed Vital Signs Vital Sign Reading Time Taken Comments Blood Pressure 138/76 05/31/2017 11:41 AM CDT Pulse 64 05/31/2017 11:41 AM CDT Temperature 36.4 ??C (97.6 ??F) 05/31/2017 11:41 AM C DT Respiratory Rate 18 05/31/2017 11:41 AM CDT Oxygen Saturation - - Inhaled Oxygen Concentration - - Weight 123.8 kg (273 lb) 05/31/2017 11:41 AM CDT Height 182.9 cm (6') 05/31/2017 11:41 AM CDT Body Mass Index 37.03 05/31/2017 11:41 AM CDT Plan of Treatment Health Maintenance Due Date Last Done Comments Hep C Screening (Preventive Services) 1989 HIV Screening (Preventive Services) 2005 Adult Preventive Visit 2007 DTaP/Tdap/Td (1 - Tdap) 2008 HepB (1) 2008 COVID-19 Vaccine ( - 2022-2 4 season) 2023 Influenza (Season Ended) 2024 Zoster/Shingles (1 of 2) 2039 HPV Vaccine Aged Out No longer eligi ble based on patient's age to complete this topic HepA Aged Out No longer eligi ble based on patient's age to complete this topic Hib Aged Out No longer eligi ble based on patient's age to complete this topic IPV (Polio) Aged Out No longer eligi ble based on patient's age to complete this topic MCV4 Aged Out No longer eligi ble based on patient's age to complete this topic Pneumococcal Aged Out No longer eligi ble based on patient's age to complete this topic
--- OUTSIDE RECORDS SUMMARY | 2024-02-01 07:00 | XMS_ITS | Continuity of Care Document ---
Author Organization [facility] Address [address] [address] [place] [address] Phone Care Team Providers Care Verifying Machine Operator Name Role Phone Unavailable Unavailable Unavailable Allergies, Adverse Reactions, Alerts Substance [...] Diagnoses Date Provider Providers Copied on Encounter [facility], [address] [address], [place], [place], [address], [place] tel:[phone] [facility] No Information 3 No Information [facility], [address] [address], [place], [place], [address], [place] tel:[phone] [facility] Chronic hepatitis C without hepatic coma 3 No Information Referring Provider: Teri JERRY, [address] [place], [address]. tel:[phone] [facility], [address] [address], [place], [place], [id number], [place] tel:[phone] [facility] No Information Sep-0 3 Estrada Castro. [address], [place], [place], [address], [place]. tel:[phone] [facility], [address] [address], [place], [place], [address], [place] tel:[phone] [facility] No Information 2 No Information [facility] Level 4 [facility], [address] [address], [place], [place], [address], [place] tel:[phone] [facility] GI Symptoms or Concerns (chief complaint) Chronic hepatitis C without hepatic coma 2 No Information Referring Provider: Teri JERRY, [address] [place] [address], [address]. tel:[phone] [facility], [address] [address], [place], [place], [address], [place] tel:[phone] [facility] Chronic viral hepatitis C 2 No Information Referring Provider: Teri JERRY, [address] [place] [address], [address]. tel:[phone] [facility], [address] [address], [place], [place], [address], [place] tel:[phone] [facility] Chronic hepatitis C without hepatic coma 2 No Information Family History Family Member Type Diagnosis Age [...] and acellular pertussis vaccine, adsorbed administered Note: [facility] b i-directional interface ; Source: Other Registry Payers Payer name Insurance type Covered democrat ID Authoriza tion(s) [employer] [facility] [id number] Social History Type Description Quantity Date Captured [...]
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
--- OUTSIDE RECORDS SUMMARY | 2024-02-01 07:01 | XMS_ITS | Referral Summary ---
Author Organization [place] Address [address] [place] [address] Care Team Providers Care Bronze Chaser Name Role Phone Teri Varela PA-C Primary Care Provider Allergies Active Allergy Reactions Criticality Noted Date Comments Hydroxyzine Rash Low 09/16/2014 Medications Medication Sig Dispensed Refills Start Date End Date Status BuPROPion HCl (WELLBUTRIN XL PO) Take 300 mg by mouth Active Acetaminophen (TYLENOL PO) Active ibuprofen (ADVIL/MOTRIN) 600 MG tablet Take 1 tablet (600 mg) by mouth every 6 hours as needed for moderate pain 60 tablet 11/17/2016 Active lisinopril-hydrochl orothiazide (PRINZIDE/ZESTORETI C) 10-6.25 MG per half-tab Take 1 tablet by mouth daily Active oxyCODONE (ROXICODONE) 5 MG tablet Take 1 tablet (5 mg) by mouth every 6 hours as needed for severe pain 6 tablet 05/27/2022 Active lidocaine (LIDODERM) 5 % patch Place 1 patch onto the skin every 24 hours To prevent lidocaine toxicity, patient should be patch free for 12 hrs daily. 10 patch 09/05/2022 Active methylPREDNISolone (MEDROL DOSEPAK) 4 MG tablet therapy pack Follow Package Directions 21 tablet 09/05/2022 Active methocarbamol (ROBAXIN) 750 MG tablet Take 1 tablet (750 mg) by mouth 4 times daily as needed (muscle pain/spasm) 28 tablet 09/05/2022 Active Active Problems Patient Care Coordination [...] chronic/recurrent pain applies. Recommend use of a experimental psychologist and documentation of the same during all [...] of Treatment Not on file Care Teams Bronze Chaser Relationship Specialty Start Date End Date Teri Varela PA-C [facility] [address] [place] [address] PCP - General Physician Liquor Blender 05/26/22
--- OUTSIDE RECORDS SUMMARY | 2024-02-01 07:01 | XMS_ITS | Encounter Summary ---
Author Organization [place] Address [address] [place] [address] Care Team Providers Care Shipfitter Name Role Phone Evans Bey MD Primary Care Provider Ana Murphy PA-C Primary Care Pro vider No Ref-Primary, Physician Primary Care Provider [facility] Primary Care Provider [facility]- Primary Care Provider Teri Varela PA-C Primary Care Provider Reason for Visit * Reason Onset Date Comments CD Outpatient 03/01/2016 Other Encounter Details Date Type Department Care Team ([facility] st Contact Info) Description 03/01/2016 Telephone [facility] Behavioral Health Intake [address] [place] [phone] Generic, Behavioral IntakeMD CD Outpatient; Social History Tobacco Use Types Packs/Day Years Used Date Smoking Tobacco: Never Alcohol Use Standard Drinks/Week Comments Not Asked 0 (1 standard drink = 0.6 oz pur e alcohol) Sex and Gender Information Value Date Recorded Sex Assigned at Not on file Gender Identity Not on file Sexual Orientation Not on file documented as of this encounter Miscellaneous Notes * Telephone Encounter - Adalberto Russell - 03/08/2016 10:56 AM CDT ----- Message from SEGUN Fritz sent at 03/08/2016 10:42 AM CDT ----- Please schedule this client for Phase 2 [place] [id number] starting 03/14/2016 for 2 more sessions. Specifically for 12:30pm, only meets on Tuesdays..... Thank you, Ambar Lainez~ * Telephone Encounter - Nydia Cowan - 03/01/2016 10:35 AM CDT ----- Message from Ambar Herndon [facility] sent at 03/01/2016 9:47 AM CDT ----- Please schedule this client for Phase 2 [place] [id number] starting 03/07/2016 for 3 additional sessions. Specifically for 12:30pm Thank you, Ambar Lainez~ documented in this encounter Plan of Treatment Not on file documented as of this encounter Visit Diagnoses Not on filedocumented in this encounter Additional Health Concerns Assessment Noted Time PHQ-9 Depression Total Score: 8 03/02/20 16 7:16 AM CDT documented as of this encounter Care Teams Shipfitter Relationship Specialty Start Date End Date Evans Bey MD PCP - General Internal Medicine 07/21/15 08/24/16 Ana Bay PA-C PCP - General Family Practice 08/25/16 11/23/16 No Ref-Primary, Physician PCP - General 11/24/16 10/01/19 [facility] [address] [place] [address] PCP - General 10/02/19 12/18/20 [facility]- [address] [place] [address] PCP - General 12/19/20 05/25/22 Teri Varela PA-C [facility] [address] [address] PCP - General Physician Residential Sales 05/26/22 documented as of this encounter
--- OUTSIDE RECORDS SUMMARY | 2024-02-01 07:01 | XMS_ITS | Clinical Summary ---
Author Organization [facility] Address [place], [place] [address] Care Team Providers Care Sharepoint Analyst Name Role Phone Evans Bey MD Unavailable [phone] Teri Varela PA-C Primary Care Provider + [phone] Allergies Active Allergy Reactions Criticality Noted Date Comments Hydroxyzine Rash Low 09/16/2014 Medications Medication Sig Dispensed Refills Start Date End Date Status FLUoxetine (PROZAC) 40 mg capsule Take 40 mg by mouth every morning. Active melatonin 5 mg capsule Take 5 mg by mouth at bedtime if needed for Sleep. Active lisinopriL (PRINIVIL; ZESTRIL) 20 mg tablet Take 20 mg by mouth once daily. Active gabapentin (NEURONTIN) 100 mg capsule Take 300 mg by mouth 2 times daily. Active ergocalciferol (VITAMIN D2; DRISDOL) 50,000 unit capsule Take 50,000 Units by mouth once weekly. Active oxyCODONE (ROXICODONE) 5 mg immediate release tabletIndications: S/P lumbar fusion,Post-op pain Take 1-3 tablets by mouth every 3 hours if needed for Pain 45 tablet 02/11/2020 Active sennosides-docusat e, 8.6-50 mg, (SENOKOT S) 8.6-50 mg tabletIndications: S/P lumbar fusion Take 1 tablet by mouth every 12 hrs while taking opioids for prevention of constipation, take 2 tablets every 12 hours prn for constipation if no bowel movements in the past 2 day, take 3 tablets prn for constipation if no bowel movements in the past 3 days, and take 4 tablets prn for constipation if no bowel movements in the past >4 days. 100 tablet 02/11/2020 Active tiZANidine (ZANAFLEX) 2 mg tabletIndications: S/P lumbar fusion,Post-op pain Take 1-2 tablets by mouth every 6 hours if needed. 90 tablet 02/11/2020 Active naloxone 4 mg/actuation spryIndications:Op iate use 1 spray intranasally in 1 nostril, may repeat every 2-3 minutes for signs of overdose, alternate nostril 1 Each 02/11/2020 Active WalkerIndications: S/P lumbar fusion Walker with front wheels for home use. 1 Device 02/11/2020 Active clonazePAM (KLONOPIN) 1 mg tablet Take 1 mg by mouth 2 times daily if needed. 02/09/2021 Active doxycycline (VIBRAMYCIN) 100 mg capsule TK 1 C PO BID 02/20/2020 Active lisinopril-hydroch lorothiazide, 20-25 mg, (PRINZIDE, ZESTORETIC) 20-25 mg per tablet Take 1 Tablet by mouth once daily. 02/09/2021 Active LORazepam (ATIVAN) 1 mg tablet Take 1 mg by mouth 2 times daily if needed. 02/02/2021 Active phentermine (ADIPEX-P) 37.5 mg tablet Take 37.5 mg by mouth. 11/12/2020 Active propranoloL (INDERAL) 20 mg tablet 12/20/2020 Active Active Problems Problem Noted Date Diagnosed Date Fracture of tibia, open 08/29/2014 Eating disorder, unspecified 08/20/2014 Major depression, recurrent 11/26/2013 Drug-seeking behavior 10/17/2013 Controlled substance agreement signed and scanrashi d 07/09/13 07/09/2013 Polysubstance (including opioids) dependence, bi nge pattern 11/04/2012 Depressive disorder, not elsewhere classified Anxiety state, unspecified 11/01/2012 Back pain 11/01/2012 HTN (hypertension) Immunizations Name Administration Dates Next Due Hepatitis B (Adult) 03/23/2014,07/04/2013,201206/16/2013 Human Papilloma Virus Vaccine 05/16/2013, 013,12/04/2012 Influenza, IIV3 (Age >=3 years) 05/25/2015,04/18 Influenza, IIV4 05/25/2014 Meningococcal Vaccine (Menactra) 06/08/2015 Tdap 09/15/2012 Family History Medical History Relation Name Comments Hypertension Father 1961,shingles,l ipid Hypertension Mother d42,accidental alcohol Good Health Sister 1/2sis,same mom 1984 Relation Name Status Comments Father Mother Sister 1/2sis,same mom Social History Tobacco Use Types Packs/Day Years Used Date Smoking Tobacco: Never Smokeless Tobacco: Never Tobacco Cessation:Counseling Given: Yes Alcohol Use Standard Drinks/Week Comments No 0 (1 standard drink = 0.6 oz pur e alcohol) sober 11/06/12 Social Connections Answer Date Recorded Frequency of Communication with Friends and Fami ly Not on file 08/06/2021 Financial Resource Strain Answer Date R ecorded Difficulty of Paying Living Expenses Not on file 08/06/2021 Difficulty of Paying Living Expenses Not on file 08/06/2021 Sex and Gender Information Value Date Recorded Sex Assigned at Not on file Gender Identity Not on file Sexual Orientation Not on file Obstetrics History Last Filed Vital Signs Vital Sign Reading Time Taken Comments Blood Pressure 143/74 02/11/2020 7:49 AM CDT Pulse 84 02/11/2020 7:49 AM CDT Temperature 36.7 ??C (98.1 ??F) 02/17/2021 3:08 PM CD T Respiratory Rate 18 02/11/2020 7:49 AM CDT Oxygen Saturation 97% 02/11/2020 7:49 AM CDT Inhaled Oxygen Concentration - - Weight 117.9 kg (260 lb) 02/17/2021 3:08 PM CDT Height 184.2 cm (6' 0.5) 02/17/2021 3:08 PM CDT Body Mass Index 34.78 02/17/2021 3:08 PM CDT Plan of Treatment Health Maintenance Due Date Last Done Comments Depression screening for age 12+ 2001 BMI (ht and wt on same day) for age 18+ 02/17/2022 02/17/2021 Tetanus booster 09/15/2022 09/15/2012 COVID-19 vaccine series ( season) 2023 11/30/2020, 11/09/2020 Influenza for age 9-49 04/06/2024 5, 05/25/2015, 05/25/2014, Additional history exists Tdap Completed 09/15/2012 Hepatitis C screening for age 18-79 Completed 04/18/2013 HIV for age 15-65 Completed 08/28/2014, , 03/23/2014, Additional history exists Pneumococcal series for age 6-64 Aged Out No longer eligible based on patient's age to complete this topic Medical Devices Implanted Type Area Laborer Brush Clearing Device Identifier Shelf Expiration Date Model / Serial / Lot Bone Matrix Sm Infuse Bmp - [id number] Implanted:Qty : 1 on 02/09/2020 by Mani Coronel MD at [facility] Lumbar Vertebrae Medtronic Spine/Ortho 04/05/2021 [id number] / / [id number] Screw Lmbr Post 7.5x55mm Xia3 Va - [id number] Implanted:Qty : 2 on 02/09/2020 by Mani Coronel MD at [facility] Lumbar Vertebrae Jimmie Spine [id number]# / / Screw Lmbr Post 7.5x40mm Xia3 Va - [id number] Implanted:Qty : 1 on 02/09/2020 by Mani Coronel MD at [facility] Lumbar Vertebrae Jimmie Spine [id number]# / / Victoriano Lmbr 40mmx6 Xia3 Cvd Titnm - [id number] Implanted:Qty : 2 on 02/09/2020 by Mani Coronel MD at [facility] Lumbar Vertebrae Arroyo Hondo Spine [id number]# / / Set Screw Lmbr Xia3 - [id number] Implanted:Qty : 4 on 02/09/2020 by Mani Coronel MD at [facility] Lumbar Vertebrae Arroyo H[employer] Spine [id number]# / / 5 X 28mm Screw - [id number] Implanted:Qty : 2 on 02/09/2020 by Mani Coronel MD at [facility] Lumbar Vertebrae [id number] / / Bone Matrix 10cc Progenix Plusputty Dbm - [id number] Implanted:Qty : 1 on 02/09/2020 by Mani Coronel MD at [facility] Lumbar Vertebrae Medtronic Spine/Ortho 07/28/2021 [id number] / / [id number] Bone 1-4mm 30cc Medtronic Chips Canclls Freeze Dried - [id number] Implanted:Qty : 1 on 02/09/2020 by Mani Coronel MD at [facility] Lumbar Vertebrae Medtronic Spine/Ortho 05/22/2024 [id number]# / / [id number] Spacer Lmbr [id number] 12deg Avs-L Stand Alone - [id number] Implanted:Qty : 1 on 02/09/2020 by Mani Coronel MD at [facility] Lumbar Vertebrae Jimmie Spine [id number]# / / Description:Anterior portion of A/P fusion L5-S1 Jimmie Spine 5.0 X 31mm Screw Implanted:Qty : 2 on 02/09/2020 by Mani Coronel MD at [facility] Lumbar Vertebrae Arroyo Hondo Spine [id number] / / Plate Lmbr 1lvl 23mm Lite Ant Univ - [id number] Implanted:Qty : 1 on 02/09/2020 by Mani Coronel MD at [facility] Lumbar Vertebrae Arroyo Hondo Spine [id number]# / / Bone Matrix 5cc Stimulan Kit Rapid Cure - [id number] Implanted:Qty : 1 on 02/09/2020 by Mani Coronel MD at [facility] Lumbar Vertebrae [employer] 09/05/2022 [id number]# / / [id number] Screw Lmbr Post 7.5x45mm Xia3 Va - [id number] Implanted:Qty : 1 on 02/09/2020 by Mani Coronel MD at [facility] Lumbar Vertebrae Arroyo Hondo Spine [id number]# / / Explanted Type Area Laborer Brush Clearing Device Identifier Shelf Expiration Date Model / Serial / Lot Screw Sm Joint 4.5x20mm Axsos Tai Titar - [id number] Explanted:Qty : 4 on 02/09/2020 by Mani Coronel MD at [facility] Lumbar Vertebrae [employer]opaed[employer] [id number] / / Procedures Procedure Name Priority Date/Time Associated Diagnosis Comments ANTI HIV 1/2 Routine 08/28/2014 5:30 PM GLASS ARTIST Screening examination for venereal disease ANTI HCV Routine 04/18/2013 4:02 PM CDT Annual physical exam from Last 3 Months or Most Recently Relevant to Health Maintenance Results * ANTI HIV 1/2 (08/28/2014 5:30 PM GLASS ARTIST) HIV-1/HIV-2 ANTIBODY Non-Reacti ve Non-Reacti ve 08/28/2014 8:23 PM GLASS ARTIST [facility] Blood specimen (specimen) BLOOD SPECIMEN / Unknown Venipuncture / Unknown 08/28/2014 5:30 PM GLASS ARTIST 08/28/2014 5:30 PM GLASS ARTIST Narrative [facility] - 08/28/2014 8:23 PM GLASS ARTIST HIV-1 p24 and HIV-1/HIV-2 Ab not detected Mandy Mcmillan MD SEND OUTS [facility] [address] [place] [address], * ANTI HCV (04/18/2013 4:02 PM CDT) ANTI HCV Non-reacti ve [facility] Blood specimen (specimen) BLOOD SPECIMEN / Unknown 04/18/2013 4:02 PM CDT 04/18/2013 3:49 PM CDT Evans Bye MD [facility] INTERNAL ZIP [address] [place] [address] from Last 3 Months or Most Recently Relevant to Health Maintenance Advance Directives * Full Code (Latest Code Status on File) Date Activated Date Inactivated Comments 02/09/2020 1:17 PM 02/11/2020 4:37 PM * Full Code Date Activated Date Inactivated Comments 02/09/2020 7:35 AM 02/09/2020 1:17 PM * Full Code Date Activated Date Inactivated Comments 10/31/2012 8:21 PM 11/01/2012 3:37 PM Care Teams Sharepoint Analyst Relationship Specialty Start Date End Date Teri Varela PA-C [address] [place] [address] PCP - General Emergency Medicine 01/28/20 Evans Bey MD Internal Medicine Internal Medicine 05/16/13
--- OUTSIDE RECORDS SUMMARY | 2024-02-01 07:01 | XMS_ITS | Clinical Summary ---
Author Organization [facility] Address [address] [place] [address] Care Team Providers Care Tobacco Prevention Health Educator Name Role Phone Teri Varela PA-C Primary [...] chronic/recurrent pain applies. Recommend use of a nutrition assistant and documentation of the same during all [...] Resolved Date Low back pain 10/08/2019 02/03/2020 Family History Medical History Relation Comments Bipolar Disorder Father Substance Abuse Father Depression Maternal Grandfather Substance Abuse Maternal Grandfather Dementia Maternal Grandmother Substance Abuse Maternal Grandmother Anxiety Disorder Mother Depression Mother Substance Abuse Mother Unknown/Adopted Paternal Grandfather Unknown/Adopted Paternal Grandmother Anxiety Disorder Sister Autism Spectrum Disorder No family hx of [place] Disease No family hx of Intellectual Disability No family hx of Mental Illness No family hx of Parkinsonism No family hx of Schizophrenia No family hx of Suicide No family hx of Relation Status Comments Father Alive Maternal Grandfather Maternal Grandmother Mother Paternal Grandfather Paternal Grandmother Sister Alive Social History Tobacco Use Types Packs/Day Years [...] 05/26/2022 8:42 PM CDT Plan of Treatment Health Maintenance Due Date Last Done Comments ADVANCE CARE PLANNING 1989 ANNUAL REVIEW OF HM ORDERS 1989 YEARLY PREVENTIVE VISIT 1989 HIV SCREENING 2004 HEPATITIS C SCREENING 2007 HEPATITIS A IMMUNIZATION (1 of 2 - Risk 2-dose series) 2008 HPV IMMUNIZATION (3 - Male 3-dose series) 08/08/2013 05/16/2013, 04/18/2013, 12/04/2012 DTAP/TDAP/TD IMMUNIZATION (2 - Td or Tdap) 09/15/2022 09/15/2012 COVID-19 Vaccine ( season) 2023 09/04/2022, 11/30/2020, 11/09/2020 PHQ-2 (once per calendar year) 2023 03/21/2016, 03/14/2016, 03/07/2016, Additional history exists INFLUENZA VACCINE (Season Ended) 2024 04/21/2017, 05/25/2015, 05/25/2014, Additional history exists HEPATITIS B IMMUNIZATION Completed 014, 07/04/2013, 05/16/2013 MENINGITIS IMMUNIZATION Aged Out 06/09/2015 No l onger eligible based on patient's age to complete this topic IPV IMMUNIZATION Aged Out No longer e ligible based on patient's age to complete this topic Pneumococcal Vaccine: Pediatrics (0 to 5 Years) and At-Risk Patients (6 to 64 Years) Aged Out No longer eligible based on patient's age to complete this topic RSV MONOCLONAL ANTIBODY Aged Out No l onger eligible based on patient's age to complete this topic Care Teams Tobacco Prevention Health Educator Relationship Specialty Start Date End Date Teri Varela PA-C [facility] [address] [place] [address] PCP - General Physician Certified Coatings Inspector 05/26/22
--- OUTSIDE RECORDS SUMMARY | 2024-02-01 07:01 | XMS_ITS | Encounter Summary ---
Author Organization [facility] Address [address] [place] [address] Care Team Providers Care Dobby Loom Weaver Name Role Phone Evans Bey MD Primary Care Provider Ana Murphy PA-C Primary Care Pro vider No Ref-Primary, Physician Primary Care Provider [facility] Primary Care Provider [facility]- Primary Care Provider Teri Varela PA-C Primary Care Provider Reason for Visit * Reason Onset Date Comments CD Outpatient 12/29/2015 Other Encounter Details Date Type Department Care Team ([facility] st Contact Info) Description 12/29/[address] [facility] Intake [address] [place] [phone] Generic, Behavioral IntakeMD CD Outpatient; Social [...] Telephone Encounter - Ambar Herndon LADC - 02/09/2016 7:59 AM CDT 02/09/2016 I received a call at 9:28pm on 02/08/2016 from the client stating he forgot to call and state he would miss group earlier that day due to work. I called him back this morning and stated thatI have not discharged him yet but that he will be discharged if he misses another treatment session, especially if it is due to work. I also stated I would be more then happy to try and help him finda different group to attend if it would be helpful to him. Probation was also called this date and informed about his absence from group yesterday. AIDE Fritz, SEGUN, FIELD TECHNICAL SUPPORT CONSULTANT * Telephone Encounter - Ambar Herndon LADC - 02/01/2016 8:02 AM CDT 02/01/2016 I called and updated the ict help desk officer stating the client had not returned my call and would be discharged today if he did not attend group. AIDE Fritz, SEGUN, GARCÍA * Telephone Encounter - Adalberto Russell - 01/25/2016 1:31 PM CDT ----- Message from SEGUN Fritz sent at 01/25/2016 11:46 AM CDT ----- Please schedule this client for an individual session with me at 8:00am for the following date 01/27/2016 Thank you, Ambar Lainez~ * Telephone Encounter - Ambar Herndon LADC - 01/20/2016 8:51 AM CDT 01/20/2016 I called to inquire where the client was for our scheduled appointment this date and asked for a return call when he got the message. AIDE Fritz, SEGUN, GARCÍA * Telephone Encounter - El Johnston - 01/17/2016 3:59 PM CDT ----- Message from SEGUN Fritz sent at 01/17/2016 3:26 PM CDT ----- Please schedule this client for an individual session with me at 8:30am for the following date 01/20/2016 Thank you, Ambar Lainez~ * Telephone Encounter - Nydia Cowan - 01/05/2016 3:57 PM CDT ----- Message from SEGUN Fritz sent at 01/05/2016 3:51 PM CDT ----- Please schedule this client for an individual session with me at 2pm for the following date 01/11/2016 Thank you, Ambar Lainez~ * Telephone Encounter - Nydia Cowan - 12/29/2015 12:29 PM CDT ----- Message from SEGUN Fritz sent at 12/29/2015 11:53 AM CDT ----- Please correct the time to reflect 2pm meeting time. See below request. Thank you Ambar Lainez~ ----- Message ----- From: Ambar Herndon LADC Sent: 12/28/2015 12:35 PM To: [facility] Outpatient Intake Please schedule this client for an individual session with me at 2pm for the following date 01/04/16 Thank you, Ambar Lainez~ documented in this encounter Plan of Treatment Not on file documented as of this encounter Visit Diagnoses Not on filedocumented in this encounter Additional Health Concerns Assessment Noted Time PHQ-9 Depression Total Score: 8 12/29/19 16 7:15 AM CDT documented as of this encounter Care Teams Dobby Loom Weaver Relationship Specialty Start Date End Date Evans Bey MD PCP - General Internal Medicine 07/21/15 08/24/16 Ana Bay PA-C PCP - General Family Practice 08/25/16 11/23/16 No Ref-Primary, Physician PCP - General 11/24/16 10/01/[address] [address] PCP - General 10/02/19 12/18/20 [facility]- [address] [place] [id number] PCP - General 12/19/20 05/25/22 Teri Varela PA-C [facility] [address] [place] [address] [id number] PCP - General Physician Medical Administrative Specialist 05/26/22 documented as of this encounter
== END 2024-01-23 15:43 | disposition home or self-care (01) ==
LOC: NFLDREF 02-01 06:59
PROVIDERS: PCP Physician Assistant Medical; Referring Provider Physician Assistant Medical; Visit Provider Physician Assistant Medical
DX: Z20.6 Contact with and (suspected) exposure to human immunodeficiency virus [HIV] (principal); Z11.3 Encounter for screening for infections with a predominantly sexual mode of transmission
CPT/HCPCS: 86592; 86703

== ENCOUNTER 2024-05-19 15:27 | Outpatient (CLI) | payer MEDICAID, SELFPAY ==
--- OUTSIDE RECORDS SUMMARY | 2024-05-19 15:31 | XMS_ITS | Clinical Summary ---
Author Organization [facility] Address [address] [place] [address] Care Team Providers Care E Commerce Solution Architect Name Role Phone Unavailable Primary Care Provider Unavailabl e Source Comments You are receiving this document as you are listed as the primary care provider,follow-up provider, or the patient has been referred to you for consultation.This is in compliance with the Medicare and[facility] Foundationcaid EHR Incentive Program,which states Providers who transition their patient to another setting of careor provider of care or refers their patient to another provider of care shouldprovide summary care record for each transition of care or referral. [facility] Allergies No known active allergies Medications Medication [...] HepB (1) 2008 COVID-19 Vaccine ( - 2023-2 5 season) 2024 Influenza (#1) 2024 Zoster/Shingles (1 of 2) 2039 HPV [...] patient's age to complete this topic RSV Aged Out No longer eligi ble based on patient's age to complete this topic MCV4 Aged Out No longer eligi ble based on patient's age to complete this topic Pneumococcal Aged Out No longer eligi ble based on patient's age to complete this topic
--- OUTSIDE RECORDS SUMMARY | 2024-05-19 15:33 | XMS_ITS | Clinical Summary ---
Author Organization [facility] Address [place], [place] [address] Care Team Providers Care Pipelines Supervisor Name Role Phone Evans Bey MD Unavailable [phone] Teri Varela PA-C Primary Care Provider [phone] Allergies Active Allergy Reactions Criticality Noted Date [...] behavior 10/17/2013 Controlled substance agreement signed and scanne d 07/09/13 07/09/2013 Polysubstance (including opioids) dependence, bi nge pattern 11/04/2012 Depressive disorder, not elsewhere classified Anxiety state, unspecified 11/01/2012 Back pain 11/01/2012 HTN (hypertension) Immunizations Name Administration Dates Next Due Hepatitis B (Adult) 03/23/2014,07/04/2013,201206/16/2013 Human Papilloma Virus Vaccine 05/16/2013,04/18/ 013,12/04/2012 Influenza, IIV3 (Age >=3 years) 05/25/2015,04/18 [...] 09/15/2022 09/15/2012 COVID-19 vaccine series ( season) 2024 11/30/2020, 11/09/2020 Influenza for age 9-49 04/06/2024 5, 05/25/2015, 05/25/2014, Additional history exists Tdap Completed 09/15/2012 Hepatitis C screening for age 18-79 Completed 04/18/2013 HIV for age 15-65 Completed 08/28/2014, , 03/23/2014, Additional history exists Pneumococcal series for age 6-64 Aged Out No longer eligible based on patient's age to complete this topic Medical Devices Implanted Type Area Stereo Equipment Salesperson Device Identifier Shelf Expiration Date Model / Serial / Lot Bone Matrix Sm Infuse Bmp - [id number] Implanted:Qty : 1 on 02/09/2020 by Mani Coronel MD at [facility] Lumbar Vertebrae [employer] Sp[employer] 04/05/2021 [id number]# / / [id number] Screw Lmbr Post 7.5x55mm Xia3 Va - [id number] Implanted:Qty : 2 on 02/09/2020 by Mani Coronel MD at [facility] [employer] [id number]# / / Screw Lmbr Post 7.5x40mm Xia3 Va - [id number] Implanted:Qty : 1 on 02/09/2020 by Mani Coronel MD at [facility] [employer] [id number]# / / Victoriano Lmbr 40mmx6 Xia3 Cvd Titnm - [id number] Implanted:Qty : 2 on 02/09/2020 by Mani Coronel MD at [facility] [employer] [id number]# / / Set Screw Lmbr Xia3 - [id number] Implanted:Qty : 4 on 02/09/2020 by Mani Coronel MD at [facility] [employer] [id number]# / / 5 X 28mm Screw - [id number] Implanted:Qty : 2 on 02/09/2020 by Mani Coronel MD at [facility] Lum[employer]brae [id number] / / Bone Matrix 10cc Progenix Plusputty Dbm - [id number] Implanted:Qty : 1 on 02/09/2020 by Mani Coronel MD at [facility] Lum[employer] Ver[employer]brae Med[employer] Spine/Ortho 07/28/2021 [id number] / / [id number] Bone 1-4mm 30cc Medtronic Chips Canclls Freeze Dried - [id number] Implanted:Qty : 1 on 02/09/2020 by Mani Coronel MD at [facility] Lum[employer] Spine/Ortho 05/22/2024 [id number]# / / [id number] Spacer Lmbr [id number] 12deg Avs-L Stand Alone - [id number] Implanted:Qty : 1 on 02/09/2020 by Mani Coronel MD at [facility] [employer] Jim[employer] Spine [id number] / / Description:Anterior portion of A/P fusion L5-S1 [employer] Spine 5.0 X 31mm Screw Implanted:Qty : 2 on 02/09/2020 by Mani Coronel MD at [facility] [employer]ine [id number] / / Plate Lmbr 1lvl 23mm Lite Ant [facility] - [id number] Implanted:Qty : 1 on 02/09/2020 by Mani Coronel MD at [facility] [employer]ine [id number] / / Bone Matrix 5cc Stimulan Kit Rapid Cure - [id number] Implanted:Qty : 1 on 02/09/2020 by Mani Coronel MD at [facility] Lumbar Ver[employer]brae [employer] 09/05/2022 [id number]# / / [id number] Screw Lmbr Post 7.5x45mm Xia3 Va - [id number] Implanted:Qty : 1 on 02/09/2020 by Mani Coronel MD at [facility] Lum[employer] [id number]# / / Explanted Type Area Stereo Equipment Salesperson Device Identifier Shelf Expiration Date Model / Serial / Lot Screw Sm Joint 4.5x20mm Axsos Tai Titsd - [id number] Explanted:Qty : 4 on 02/09/2020 by Mani Coronel MD at [facility] Lum[employer] [id number] / / Procedures Procedure Name Priority Date/Time Associated Diagnosis Comments ANTI HIV 1/2 Routine 08/28/2014 5:30 PM TAX COMPLIANCE REPRESENTATIVE Screening examination for venereal disease ANTI HCV Routine 04/18/2013 4:02 PM CDT Annual physical exam from Last 3 Months or Most Recently Relevant to Health Maintenance Results * ANTI HIV 1/2 (08/28/2014 5:30 PM TAX COMPLIANCE REPRESENTATIVE) HIV-1/HIV-2 ANTIBODY Non-Reacti ve Non-Reacti ve 08/28/2014 8:23 PM TAX COMPLIANCE REPRESENTATIVE [facility] Blood specimen (specimen) BLOOD SPECIMEN / Unknown Venipuncture / Unknown 08/28/2014 5:30 PM TAX COMPLIANCE REPRESENTATIVE 08/28/2014 5:30 PM TAX COMPLIANCE REPRESENTATIVE Narrative [facility] - 08/28/2014 8:23 PM TAX COMPLIANCE REPRESENTATIVE HIV-1 p24 and HIV-1/HIV-2 Ab not detected Mandy Mcmillan MD SEND OUTS [facility] [address] [place] [address], * ANTI HCV (04/18/2013 4:02 PM CDT) ANTI HCV Non-reacti ve [facility] Blood specimen (specimen) BLOOD SPECIMEN / Unknown 04/18/2013 4:02 PM CDT 04/18/2013 3:49 PM CDT Evans Bey MD SEND OUTS [facility] [place]NAL ZIP [address] [place] [address] from Last 3 Months or Most Recently Relevant to Health Maintenance Advance Directives * Full Code (Latest Code Status on File) Date Activated Date Inactivated Comments 02/09/2020 1:17 PM 02/11/2020 4:37 PM * Full Code Date Activated Date Inactivated Comments 02/09/2020 7:35 AM 02/09/2020 1:17 PM * Full Code Date Activated Date Inactivated Comments 10/31/2012 8:21 PM 11/01/2012 3:37 PM Care Teams Pipelines Supervisor Relationship Specialty Start Date End Date Teri Varela PA-C [address] [place] [address] PCP - General Emergency Medicine 01/28/20 Evans Bey MD Internal Medicine Internal Medicine 05/16/13
--- OUTSIDE RECORDS SUMMARY | 2024-05-19 15:33 | XMS_ITS | Clinical Summary ---
Author Organization [facility] Address [address] [place] [address]. [place] [address] Care Team Providers Care Angular Js Developer Name Role Phone Teri Varela PA-C Primary [...] for moderate pain 60 tablet 11/17/2016 Active Additional Information Patient not taking.Reported on 04/04/2024 lisinopril-hydrochl orothiazide (PRINZIDE/ZESTORETI C) 10-6.25 MG per half-tab Take 1 tablet by mouth daily Active oxyCODONE (ROXICODONE) 5 MG tablet Take 1 tablet (5 mg) by mouth every 6 hours as needed for severe pain 6 tablet 05/27/2022 Active Additional Information Patient not taking.Reported on 04/04/2024 lidocaine (LIDODERM) 5 % patch Place 1 patch onto the skin every 24 hours To prevent lidocaine toxicity, patient should be patch free for 12 hrs daily. 10 patch 09/05/2022 Active Additional Information Patient not taking.Reported on 04/04/2024 methylPREDNISolone (MEDROL DOSEPAK) 4 MG tablet therapy pack Follow Package Directions 21 tablet 09/05/2022 Active Additional Information Patient not taking.Reported on 04/04/2024 methocarbamol (ROBAXIN) 750 MG tablet Take 1 tablet (750 mg) by mouth 4 times daily as needed (muscle pain/spasm) 28 tablet 09/05/2022 Active Additional Information Patient not taking.Reported on 04/04/2024 naproxen (NAPROSYN) 500 MG tabletIndications:P ain of left clavicle,Contusion of left shoulder, initial encounter Take 1 tablet (500 mg) by mouth 2 times daily (with meals). As needed for shoulder pain 30 tablet 04/04/2024 Active Active Problems Patient Care Coordination No [...] chronic/recurrent pain applies. Recommend use of a program supervisor and documentation of the same during all [...] Resolved Date Low back pain 10/08/2019 02/03/2020 Encounters Date Type Department Care Team Description 04/04/2024 2:27 PM CDT - 04/04/2024 11:59 PM CDT Hospital Encounter [address] [phone] Lisette Lima PA-C Pain of left clavicle Discharge Disposition: Home or Self Care 04/04/2024 2:27 PM CDT - 04/04/2024 11:59 PM CDT Hospital Encounter [facility] [address] [facility] [address] [place] [phone] Lisette Lima PA-C Pain of left clavicle Discharge Disposition: Home or Self Care 04/04/2024 1:00 PM CDT Office Visit [facility] [address] [facility] [address] [place] [phone] Lisette Lima PA-C Pain of left clavicle (Primary Dx); Contusion of left shoulder, initial encounter 04/04/2024 Travel 03/26/2024 4:01 PM CDT - 03/26/2024 7:37 PM CDT Emergency [facility] Emergency Department [address] [place] [phone] Marco Ivan MD Sovell, Paul J., MD Alcoholic intoxication without complication (H) Discharge Disposition: Home or Self Care 03/26/2024 Telephone [facility] Behavioral Health Intake [address] [place] [phone] Generic, Behavioral Intake, MH/CD Inpatient 03/26/2024 Travel from Last 3 Months Family History Medical History Relation Comments Bipolar Disorder Father Substance Abuse Father Depression Maternal Grandfather Substance Abuse Maternal Grandfather Dementia Maternal Grandmother Substance Abuse Maternal Grandmother Anxiety Disorder Mother Depression Mother Substance Abuse Mother Unknown/Adopted Paternal Grandfather Unknown/Adopted Paternal Grandmother Anxiety Disorder Sister Autism Spectrum Disorder No family hx of Bandera Disease No family hx of Intellectual Disability [...] Sign Reading Time Taken Comments Blood Pressure 135/73 04/04/2024 2:01 PM CDT Pulse 76 04/04/2024 2:01 PM CDT Temperature 36.6 ??C (97.9 ??F) 04/04/2024 2:01 PM CD T Respiratory Rate 18 04/04/2024 2:01 PM CDT Oxygen Saturation 100% 04/04/2024 2:01 PM CDT Inhaled Oxygen Concentration - - Weight 112.1 kg (247 lb 3.2 oz) 04/04/2024 2:01 PM CDT Height 185.4 cm (6' 1) 05/26/2022 8:42 PM CDT Body Mass Index 32.61 05/26/2022 8:42 PM CDT Plan of Treatment Health Maintenance Due Date Last Done Comments ADVANCE CARE PLANNING 1989 ANNUAL REVIEW OF HM ORDERS 1989 YEARLY PREVENTIVE VISIT 1989 HIV SCREENING 2004 HEPATITIS C SCREENING 2007 HEPATITIS A IMMUNIZATION (1 of 2 - Risk 2-dose series) 2008 HPV IMMUNIZATION (3 - Male 3-dose series) 08/08/2013 05/16/2013, 04/18/2013, 12/04/2012 PHQ-2 (once per calendar year) 2023 03/21/2016, 03/14/2016, 03/07/2016, Additional history exists COVID-19 Vaccine ( season) 2024 09/04/2022, 11/30/2020, 11/09/2020 INFLUENZA VACCINE (#1) 2024 7, 05/25/2015, 05/25/2014, Additional history exists BMP 03/26/2025 03/26/2024, 05/0 04/2022, 12/19/2020 DTAP/TDAP/TD IMMUNIZATION (3 - Td or Tdap) 02/01/2033 02/01/2023, 09/15/2012 RSV VACCINE (1 - 1-dose 75+ series) 2064 HEPATITIS B IMMUNIZATION Completed 014, 07/04/2013, 05/16/2013 [...] on patient's age to complete this topic Procedures Procedure Name Priority Date/Time Associated Diagnosis Comments XR ACROMIOCLAVICULAR JOINT BILATERAL STAT 04/04/2024 2:39 PM CDT Pain of left clavicle XR CLAVICLE LEFT 2 VIEWS STAT 024 2:39 PM CDT Pain of left clavicle URINE DRUG SCREEN STAT 03/26/2024 4:4 4 PM CDT CBC WITH PLATELETS & DIFFERENTIAL STAT 03/26/2024 4:44 PM CDT MAGNESIUM STAT 03/26/2024 4:44 PM CDT URINE DRUG SCREEN PANEL STAT 03/26/20 4:44 PM CDT CBC WITH PLATELETS AND DIFFERENTIAL STAT 03/26/2024 4:44 PM CDT ETHYL ALCOHOL LEVEL STAT 03/26/2024 4 :44 PM CDT BASIC METABOLIC PANEL STAT 03/26/2024 4:44 PM CDT from Last 3 Months Results * XR Acromioclavicular Joint Bilateral (04/04/2024 2:39 PM CDT) Anatomical Region Laterality Modality Upper Extremity Bilateral Digital Radiogra phy 04/04/2024 2:39 PM CDT Impressions 04/04/2024 2:47 PM CDT IMPRESSION: No acute fracture of the left clavicle or elsewhere in left shoulder. The acromioclavicular and coracoclavicular intervals are maintained and are symmetric to the contralateral right side. Narrative 04/04/2024 2:47 PM CDT EXAM: XR CLAVICLE LEFT 2 VIEWS, XR ACROMIOCLAVICULAR JOINT BILATERAL LOCATION: [facility] DATE: 04/04/2024 INDICATION: pain, swelling, trauma COMPARISON: None. Procedure Note Rosie Tilley MD - 04/04/2024 EXAM: XR CLAVICLE LEFT 2 VIEWS, XR ACROMIOCLAVICULAR JOINT BILATERAL LOCATION: [facility] DATE: 04/04/2024 INDICATION: pain, swelling, trauma COMPARISON: None. IMPRESSION: No acute fracture of the left clavicle or elsewhere in leftshoulder. The acromioclavicular and coracoclavicular intervals aremaintained and are symmetric to the contralateral right side. Lisette Lima PA-C IMG DIAGNOSTIC IM AGING ORDERABLES * XR Clavicle Left 2 Views (04/04/2024 2:39 PM CDT) Anatomical Region Laterality Modality Upper Extremity Left Digital Radiogra phy 04/04/2024 2:39 PM CDT Impressions 04/04/2024 2:47 PM CDT IMPRESSION: No acute fracture of the left clavicle or elsewhere in left shoulder. The acromioclavicular and coracoclavicular intervals are maintained and are symmetric to the contralateral right side. Narrative 04/04/2024 2:47 PM CDT EXAM: XR CLAVICLE LEFT 2 VIEWS, XR ACROMIOCLAVICULAR JOINT BILATERAL LOCATION: [facility] DATE: 04/04/2024 INDICATION: pain, swelling, trauma COMPARISON: None. Procedure Note Rosie Tilley MD - 04/04/2024 EXAM: XR CLAVICLE LEFT 2 VIEWS, XR ACROMIOCLAVICULAR JOINT BILATERAL LOCATION: [facility] DATE: 04/04/2024 INDICATION: pain, swelling, trauma COMPARISON: None. IMPRESSION: No acute fracture of the left clavicle or elsewhere in leftshoulder. The acromioclavicular and coracoclavicular intervals aremaintained and are symmetric to the contralateral right side. Lisette Lima PA-C IMG DIAGNOSTIC IM AGING ORDERABLES * CBC with platelets and differential (03/26/2024 4:44 PM CDT) WBC Count 8.0 4.0 - 11.0 10e3/uL 03/26/2024 4:54 PM CDT [facility] RBC Count 5.31 4.40 - 5.90 10e6/uL 03/26/2024 4:54 PM CDT [facility] Hemoglobin 15.7 13.3 - 17.7 g/dL 03/26/2024 4:54 PM CDT [facility] Hematocrit 47.2 40.0 - 53.0 % 03/26/2024 4:54 PM CDT [facility] MCV 89 78 - 100 fL 03/26/2024 4:54 PM CDT [facility] MCH 29.6 26.5 - 33.0 pg 03/26/2024 4:54 PM CDT [facility] MCHC 33.3 31.5 - 36.5 g/dL 03/26/2024 4:54 PM CDT [facility] RDW 13.2 10.0 - 15.0 % 03/26/2024 4:54 PM CDT [facility] Platelet Count 333 150 - 450 10e3/uL 03/26/2024 4:54 PM CDT [facility] % Neutrophils 57 % 03/26/2024 4:54 PM CDT [facility] % Lymphocytes 35 % 03/26/2024 4:54 PM CDT [facility] % Monocytes 7 % 03/26/2024 4:54 PM CDT [facility] % Eosinophils 1 % 03/26/2024 4:54 PM CDT [facility] % Basophils 1 % 03/26/2024 4:54 PM CDT [facility] % Immature Granulocytes 0 % 03/26/2024 4:54 PM CDT [facility] NRBCs per 100 WBC 0 <1 /100 024 4:54 PM CDT [facility] Absolute Neutrophils 4.6 1.6 - 8.3 10e3/uL 03/26/2024 4:54 PM CDT [facility] Absolute Lymphocytes 2.8 0.8 - 5.3 10e3/uL 03/26/2024 4:54 PM CDT [facility] Absolute Monocytes 0.5 0.0 - 1.3 10e3/uL 03/26/2024 4:54 PM CDT [facility] Absolute Eosinophils 0.1 0.0 - 0.7 10e3/uL 03/26/2024 4:54 PM CDT [facility] Absolute Basophils 0.1 0.0 - 0.2 10e3/uL 03/26/2024 4:54 PM CDT [facility] Absolute Immature Granulocytes 0.0 <=0.4 10e3/uL 03/26/2024 4:54 PM CDT [facility] Absolute NRBCs 0.0 10e3/uL 03/26/2024 4:54 PM CDT [facility] Blood BLOOD SPECIMEN / Unknown Venipuncture / Unknown 03/26/2024 4:44 PM CDT 03/26/2024 4:49 PM CDT Marco Ivan MD LAB - BLOOD ORDERABL ES Performing Organization Address [facility] Co de Phone Number [facility] [address] * Magnesium (03/26/2024 4:44 PM CDT) [facility] Magnesium 2.3 1.7 - 2.3 mg/dL 03/26/2024 5:33 PM CDT [facility] Blood BLOOD SPECIMEN / Unknown Venipuncture / Unknown 03/26/2024 4:44 PM CDT 03/26/2024 4:49 PM CDT Marco Ivan MD LAB - BLOOD ORDERABL ES Performing Organization Address [facility]/ZIP Co de Phone Number [facility] [address] [place] [address], [facility] * (ABNORMAL) Urine Drug Screen Panel (03/26/2024 4:44 PM CDT) [facility] Amphetamines Urine Screen Negative Screen Negative 03/26/2024 5:13 PM CDT [facility] Comment:Cutoff for a negativ e amphetamine is less than 500 ng/mL. Barbituates Urine Screen Negative Screen Negative 03/26/2024 5:13 PM CDT [facility] Comment:Cutoff for a negativ e barbiturate is less than 200 ng/mL. Benzodiazepine Urine Screen Positive(A) Screen Negative 03/26/2024 5:13 PM CDT [facility] Comment: Cutoff for a positive benzodiazepine is 100 ng/mL or greater. This is an unconfirmed screening result to be used for medical purposes only. Cannabinoids Urine Screen Positive(A) Screen Negative 03/26/2024 5:13 PM CDT [facility] Comment: Cutoff for a positive cannabinoid is 50 ng/mL or greater. This is an unconfirmed screening result to be used for medical purposes only. Cocaine Urine Screen Negative Screen Negative 03/26/2024 5:13 PM CDT [facility] Comment:Cutoff for a negativ e cocaine is less than 300 ng/mL. Fentanyl Qual Urine Screen Negative Screen Negative 03/26/2024 5:13 PM CDT [facility] Comment:Cutoff for negative fentanyl is less than 5 ng/mL. Opiates Urine Screen Negative Screen Negative 03/26/2024 5:13 PM CDT [facility] Comment:Cutoff for a negativ e opiate is less than 300 ng/mL. PCP Urine Screen Negative Screen Negative 03/26/2024 5:13 PM CDT [facility] Comment:Cutoff for a negativ e PCP is less than 25 ng/mL. Urine URINE SPECIMEN OBTAINED BY CLEAN CATCH PROCEDURE / Unknown Non-blood Collection / Unknown 03/26/2024 4:44 PM CDT 03/26/2024 4:49 PM CDT Marco Ivan MD LAB - URINE ORDERABL ES [facility] [address] [place] [address], [facility] * (ABNORMAL) Ethyl Alcohol Level (03/26/2024 4:44 PM CDT) Alcohol ethyl 0.12(H) <=0.01 g/dL 03/26/2024 5:08 PM CDT [facility] Blood BLOOD SPECIMEN / Unknown Venipuncture / Unknown 03/26/2024 4:44 PM CDT 03/26/2024 4:49 PM CDT Marco Ivan MD LAB - BLOOD ORDERABL ES [facility] [address] [place] [address], [facility] * (ABNORMAL) Basic metabolic panel (03/26/2024 4:44 PM CDT) Sodium 148(H) 135 - 145 mmol/L 03/26/2024 5:08 PM CDT [facility] Potassium 4.2 3.4 - 5.3 mmol/L 03/26/2024 5:08 PM CDT [facility] Chloride 108(H) 98 - 107 mmol/L 03/26/2024 5:08 PM CDT [facility] Carbon Dioxide (CO2) 26 22 - 29 mmol/L 03/26/2024 5:08 PM CDT [facility] Anion Gap 14 7 - 15 mmol/L 03/26/2024 5:08 PM CDT [facility] Urea Nitrogen 10.5 6.0 - 20.0 mg/dL 03/26/2024 5:08 PM CDT [facility] Creatinine 0.81 0.67 - 1.17 mg/dL 03/26/2024 5:08 PM CDT [facility] GFR Estimate >90 >60 mL/min/1.7 3m2 03/26/2024 5:08 PM CDT [facility] Comment:eGFR calculated usin 2020 CKD-EPI equation. Calcium 8.9 8.8 - 10.4 mg/dL 03/26/2024 5:08 PM CDT [facility] Comment:Reference intervals for this test were updated on 02/19/2024 to reflect our healthy population more accurately. There may be differences in the flagging of prior results with similar values performed with this method. Those prior results can be interpreted in the context of the updated reference intervals. Glucose 85 70 - 99 mg/dL 03/26/2024 5:08 PM CDT [facility] Blood BLOOD SPECIMEN / Unknown Venipuncture / Unknown 03/26/2024 4:44 PM CDT 03/26/2024 4:49 PM CDT Marco Ivan MD LAB - BLOOD ORDERABL ES [facility] [address] [place] [address], [facility] from Last 3 Months Care Teams Angular Js Developer Relationship Specialty Start Date End Date Teri Varela PA-C [facility] [address] [place] [address] PCP - General Physician Materials Planner/Production Planner 05/26/22
--- OUTSIDE RECORDS SUMMARY | 2024-05-19 15:33 | XMS_ITS | Continuity of Care Document ---
Author Organization [facility] Address [address] [place] [address] Phone Care Team Providers Care Photo Finisher Name Role Phone Edin PAYAN, M Unavailable [...] Pt Eval 15 Min NOLBERTO Beebe, [address], [place], [place], [address], [place] tel:[phone] [facility] back pain (chief complaint) Other intervertebra l disc displacement, lumbosacral regionSpondyl osis w/o myelopathy or radiculopathy , lumbar regionConn tiss and disc stenos of intvrt foramin of lumbar regionInterve rtebral disc disorders w radiculopathy , lumbar regionLong term (current) use of opiate analgesic 8 Edin Yogesh. [address], [facility] , [place], [address], [place]. tel:[phone] Refugio Madden.Refer ring Provider: Refugio Rueda, [address] [place], [address] . tel:[phone] [facility], [address], [place], [place], [address], [place] tel:[phone] [place] [facility] 7390 No Information Gibran Lezama. [address], [place], [place], [address], [place]. tel:[phone] Referring Provider: Refugio Rueda, [address] [place], [address] . tel:[phone] Est Pt Eval 15 Min [facility], [address], [place], [place], [address], [place] tel:[phone] [facility] back pain (chief complaint)pa in medications (chief complaint) Other intervertebra l disc degeneration, lumbosacral regionLong term (current) use of opiate analgesic 8 Rossi Calderon. [address], [address], [place], [place], [address], [place]. tel:[phone] Refugio Madden.Refer ring Provider: Refugio Rueda, [address] [place], [address] . tel:[phone] Est Pt Eval 15 Min [facility], [address], [place], [place], [address], [place] tel:[phone] [facility] back pain (chief complaint)op iates (chief complaint) Other intervertebra l disc degeneration, lumbosacral regionLong term (current) use of opiate analgesic 8 [facility] [employer]. [address], [address], [place], [place], [address], [place]. tel:[phone] Refugio Madden.Refer ring Provider: Refugio Rueda, [address], [address] . tel:[phone] Est Pt Eval 25 Min [facility], [address], [place], [place], [address], [place] tel:[phone] [facility] back pain (chief complaint) Spondyls w/o myelopathy or radiculopathy , lumbosacr regionInterve rtebral disc disorders w radiculopathy , lumbar regionConn tiss and disc stenos of intvrt foramin of lumbar regionLow back painOther intervertebra l disc displacement, lumbosacral region 7 Edin Yogesh. [address], [facility] , [place], [address], [place]. tel:[phone] Refugio Madden.Refer ring Provider: Refugio Rueda, [address] [facility] [address] [place], [address] . tel:[phone] Est Pt Eval 25 Min [facility], [address], [place], [place], [address], [place] tel:[phone] [facility] back pain (chief complaint) nursing home (current) use of opiate analgesicLow back painOther intervertebra l disc degeneration, lumbar regionInterve rtebral disc disorders w radiculopathy , lumbar regionConn tiss and disc stenos of intvrt foramin of lumbar region [facility] M. [address], [facility] , [place], [address], [place]. tel:[phone] Refugio Madden.Refer ring Provider: Refugio Rueda, [address] [place], [address] . tel:[phone] Est Pt Eval 25 Min [facility], [address], [place], [place], [address], [place] tel:[phone] [facility] back pain (chief complaint) Other intervertebra l disc displacement, lumbosacral regionConn tiss and disc stenos of intvrt foramin of lumbar regionOther intervertebra l disc degeneration, lumbar regionInterve rtebral disc disorders w radiculopathy , lumbar regionSpondyl s w/o myelopathy or radiculopathy , lumbosacr regionLong term (current) use of opiate analgesic Edin Zuñiga. [address], [facility] , [place], [address], [place]. tel:[phone] Refugio Madden.Refer ring Provider: Refugio Rueda, [address] [place], [address] . tel:[phone] Est Pt Eval 25 Min [facility], [address], [place], [place], [address], [place] tel:[phone] [facility] back pain (chief complaint) Intervertebra l disc disorders w radiculopathy , lumbar regionOther intervertebra l disc degeneration, lumbosacral regionOther intervertebra l disc degeneration, lumbar regionOther intervertebra l disc displacement, lumbosacral regionLong term (current) use of opiate analgesicConn tiss and disc stenos of intvrt foramin of lumbar regionSpondyl s w/o myelopathy or radiculopathy , lumbosacr region Apr- Edin Zuñiga. [address], [facility] , [place], [address], [place]. tel:[phone] Refugio Madden.Refer ring Provider: Refugio Rueda, [address] [facility] [address] [place], [address] . tel:[phone] Est Pt Eval 25 Min [facility], [facility], [address], [place], [place], [address], [place] tel:[phone] [facility] Spondyls w/o myelopathy or radiculopathy , lumbosacr regionConn tiss and disc stenos of intvrt foramin of lumbar regionLong term (current) use of opiate analgesicLow back painOther intervertebra l disc degeneration, lumbar regionOther intervertebra l disc displacement, lumbosacral regionSpondyl osis w/o myelopathy or radiculopathy , lumbar regionOther intervertebra l disc degeneration, lumbosacral regionInterve rtebral disc disorders w radiculopathy , lumbar region Edni Maldonado [address], [facility] , [place], [address], [place]. tel:[phone] Refugio Madden.Refer ring Provider: Refugio Rueda, [address] [facility] [address] [place], [address] . tel:[phone] [facility], [address], [place], [address], [place] tel:[phone] [facility] [place] Spondylosis w/o myelopathy or radiculopathy , lumbar regionSpondyl s w/o myelopathy or radiculopathy , lumbosacr regionOther intervertebra l disc degeneration, lumbosacral regionOther intervertebra l disc degeneration, lumbar region Mar- 7 [facility]. [address], [place], [place], [address], [place]. tel:[phone] Refugio Madden.Refer ring Provider: Evans Zuñiga, [address], [place], [address] . tel:[phone] [facility], [facility], [address], [place], [place], [address], [place] tel:[phone] [facility] No Information Leanne Krueger. [address], [place], [place], [address], [place]. tel:[phone] Referring Provider: Evans Zuñiga, [address], [place], [address] . tel:[phone] [facility], [facility], [address], [place], [place], [address], [place] tel:[phone] [facility] Low back pain No Information Referring Provider: Refugio Rueda, [address] [facility] [place], [place], [address] . tel:[phone] [facility], [address], [place], [address], [place] tel:[phone] [facility] Spondyls w/o myelopathy or radiculopathy , lumbosacr regionSpondyl osis w/o myelopathy or radiculopathy , lumbar regionOther intervertebra l disc degeneration, lumbar regionOther intervertebra l disc degeneration, lumbosacral region 7 [facility]. [address], [place], [place], [address], [place]. tel:[phone] Refugio Madden.Refer ring Provider: Evans Zuñiga, [address], [place], [address] . tel:[phone] [facility], [address], [place], [place], [address], [place] tel:[phone] [facility] No Information 7 Leanne Krueger. [address], [place], [place], [address], [place]. tel:[phone] Referring Provider: Evans Zuñiga, [address], [place], [address] . tel:[phone] Est Pt Eval 15 Min [facility], [facility], [address], [place], [place], [address], [place] tel:[phone] [facility] Intervertebra l disc disorders w radiculopathy , lumbar regionLong term (current) use of opiate analgesic No Information Refugio Madden.Refer ring Provider: Refugio SONG G, [address] [facility] [place], [place], [address] . tel:[phone] [facility], [address], [place], [address], [place] tel:[phone] [facility] No Information 7 Leanne Krueger. [address], [place], [place], [address], [place]. tel:[phone] Referring Provider: Evans Zuñiga, [address], [place], [address] . tel:[phone] [facility], [address], [place], [address], [place] tel:[phone] [facility] Spondyls w/o myelopathy or radiculopathy , lumbosacr regionSpondyl osis w/o myelopathy or radiculopathy , lumbar regionOther intervertebra l disc degeneration, lumbosacral regionOther intervertebra l disc degeneration, lumbar region [facility]. [address], [place], [place], [address], [place]. tel:[phone] Refugio Madden.Refer ring Provider: Evans Zuñiga, [address], [place], [address] . tel:[phone] [facility], [facility], [address], [place], [place], [address], [place] tel:[phone] [facility] [place] No Information 7 Leanne Krueger. [address], [place], [place], [address], [place]. tel:[phone] Referring Provider: Evans Zuñiga, [address], [place], [address] . tel:[phone] [facility], [address], [place], [address], [place] tel:[phone] [facility] [place] Spondylosis w/o myelopathy or radiculopathy , lumbar regionSpondyl osis without myelopathy of lumbosacral regionOther intervertebra l disc degeneration of lumbar regionOther intervertebra l disc degeneration of lumbosacral region [facility]. [address], [place], [place], [address], [place]. tel:[phone] Refugio Madden.Refer ring Provider: Evans Zuñiga, [address], [place], [address] . tel:[phone] Ab[facility], [facility], [address], [place], [place], [address], [place] tel:[phone] [facility] [place] No Information 7 Leanne Krueger. [address], [place], [place], [address], [place]. tel:[phone] Referring Provider: Evans Zuñiga, [address], [place], [address] . tel:[phone] Est Pt Eval 25 Min [facility], [facility], [address], [place], [place], [address], [place] tel:[phone] [facility] Intervertebra l disc disorders w radiculopathy , lumbar regionOther intervertebra l disc displacement, lumbosacral regionLow back painConn tiss and disc stenos of intvrt foramin of lumbar regionOther intervertebra l disc degeneration, lumbosacral regionLong term (current) use of opiate analgesic 7 Edin Zuñiga. [address], [facility] , [place], [address], [place]. tel:[phone] Refugio Madden.Refer ring Provider: Refugio SONG G, [address] [facility] [place], [place], [address] . tel:[phone] [facility], [address], [place], [address], [place] tel:[phone] [facility] Intervertebra l disc disorders w radiculopathy , lumbar regionOther intervertebra l disc degeneration, lumbosacral region 7 Leanne Krueger. [address], [place], [place], [address], [place]. tel:[phone] Refugio Madden.Refer ring Provider: Evans Zuñiga, [address], [place], [address] . tel:[phone] [facility], [address], [place], [place], [address], [place] tel:[phone] [facility] No Information 7 Leanne Krueger. [address], [place], [place], [address], [place]. tel:[phone] Referring Provider: Evans Zuñiga, [address], [place], [address] . tel:[phone] Est Pt Eval 25 Min [facility], [facility], [address], [place], [place], [address], [place] tel:[phone] [facility] Other intervertebra l disc degeneration, lumbosacral regionLow back painConn tiss and disc stenos of intvrt foramin of lumbar regionLong term (current) use of opiate analgesicInte rvertebral disc disorders w radiculopathy , lumbar region Edin Zuñiga. [address], [facility] , [place], [address], [place]. tel:[phone] Refugio Madden.Refer ring Provider: Refugio SONG G, [address] [facility] [place], [place], [address] . tel:[phone] [facility], [address], [place], [address], [place] tel:[phone] [facility] Intervertebra l disc disorders w radiculopathy , lumbar regionOther intervertebra l disc degeneration, lumbosacral region 7 Leanne Krueger. [address], [place], [place], [address], [place]. tel:[phone] Refugio Madden.Refer ring Provider: Evans Zuñiga, [address], [place], [address] . tel:[phone] [facility], [facility], [address], [place], [place], [address], [place] tel:[phone] [facility] No Information 7 Leanne Krueger. [address], [place], [place], [address], [place]. tel:[phone] Referring Provider: Evans Zuñiga, [address], [place], [address] . tel:[phone] New Pt Eval 30 Min Abiel, [facility], [address], [place], [place], [address], [place] tel:[phone] [facility] Low back painOther intervertebra l disc degeneration, lumbosacral regionOther intervertebra l disc displacement, lumbosacral regionSpondyl olisthesis, lumbosacral regionConn tiss and disc stenos of intvrt foramin of lumbar region Nov- 7 No Information Referring Provider: Refugio SONG G, [address] [place], [address] . tel:[phone] Family History Family Member Type Diagnosis Age At Onset Multiple relatives Problem (finding) Diabetes Multiple relatives Problem (finding) hypertension Payers Payer name Insurance type Covered alliance party ID Authoriza tion(s) [facility] [id number] Social History Type Description Quantity Date Captured [...] Present Illness Encounter Date Complaint History Of Jackie nt Illness back pain Location of pain [...] sore but did not sustain any injury. Barney truck pulled him out. pain medications Reports that he does need pain medications due to standing on his feet at work; uses a tab in the am and in the PM/ He attends p.T. and swims. opiates He is prescribed [place] 7.5 mg tabs for pain. back pain [...]
--- OUTSIDE RECORDS SUMMARY | 2024-05-19 15:34 | XMS_ITS | Encounter Summary ---
Author Organization [facility] Address [address] [place] [address]. [place] [address] Care Team Providers Care Pile Header Name Role Phone Evans Bey MD Primary Care Provider Ana Murphy PA-C Primary Care Pro vider No Ref-Primary, Physician Primary Care Provider [facility] Primary Care Provider [facility]- Primary Care Provider Teri Varela PA-C Primary Care Provider Reason for Visit * Reason Onset Date Comments CD Outpatient 03/01/2016 Other Encounter Details Date Type Department Care Team ([facility] st Contact Info) Description 03/01/2016 Telephone [facility] Intake [address] [place] [address] Generic, Behavioral IntakeMD CD Outpatient; Social [...] Please schedule this client for Phase 2 [place] [id number] starting 03/14/2016 for 2 more sessions. Specifically for 12:30pm, only meets on Tuesdays..... Thank you, Ambar Lainez~ * Telephone Encounter - Nydia Cowan - 03/01/2016 10:35 AM CDT ----- Message from SEGUN Fritz sent at 03/01/2016 9:47 AM CDT ----- Please schedule this client for Phase 2 [place] [id number] starting 03/07/2016 for 3 additional sessions. Specifically for 12:30pm Thank you, Ambar Lainez~ documented in this encounter Plan of Treatment Not on file documented as of this encounter Visit Diagnoses Not on filedocumented in this encounter Additional Health Concerns Assessment Noted Time PHQ-9 Depression Total Score: 8 03/02/20 16 7:16 AM CDT documented as of this encounter Care Teams Pile Header Relationship Specialty Start Date End Date Evans Bey MD PCP - General Internal Medicine 07/21/15 08/24/16 [place] PA-C PCP - General Family Practice 08/25/16 11/23/16 No Ref-Primary, Physician PCP - General 11/24/16 10/01/[address] [address] PCP - General 10/02/19 12/18/20 [facility]- [address] [place] [address] PCP - General 12/19/20 05/25/22 Teri Varela PA-C [address] [address] PCP - General Physician Accuracy Expert 05/26/22 documented as of this encounter
--- OUTSIDE RECORDS SUMMARY | 2024-05-19 15:34 | XMS_ITS | Encounter Summary ---
Author Organization [facility] Address [address] [place] [address]. [place] [address] Care Team Providers Care Contract Lead Name Role Phone Teri Varela PA-C Primary Care Provider Encounter Details Date Type Department Care Team (Latest Contact Info) Description 03/26/2024 Travel Social History Tobacco Use Types Packs/Day Years [...] on file documented as of this encounter Plan of Treatment Not on file documented as of this encounter Visit Diagnoses Not on filedocumented in this encounter Additional Health Concerns Assessment Noted Time PHQ-9 Depression Total Score: 6 03/22/20 16 7:13 AM CDT documented as of this encounter Care Teams Contract Lead Relationship Specialty Start Date End Date Teri Varela PA-C [facility] [address] [place] [address] PCP - General Physician Returned Goods Receiving Clerk 05/26/22 documented as of this encounter
--- OUTSIDE RECORDS SUMMARY | 2024-05-19 15:34 | XMS_ITS | Referral Summary ---
Author Organization [facility] Address [address] [place] [address]. [place] [address] Care Team Providers Care Senior Physical Therapist Name Role Phone Teri Varela PA-C Primary Care Provider Encounters Date Type Department Care Team Description 04/04/2024 2:27 PM CDT - 04/04/2024 11:59 PM CDT Hospital Encounter [facility] [address] [place] [phone] Lisette Lima PA-C Pain of left clavicle Discharge Disposition: Home or Self Care 04/04/2024 2:27 PM CDT - 04/04/2024 11:59 PM CDT Hospital Encounter [address] [phone] Lisette Lima PA-C Pain of left clavicle Discharge Disposition: Home or Self Care 04/04/2024 Travel 04/04/2024 1:00 PM CDT Office Visit [address] [place] [phone] Lisette Lima PA-C Pain of left clavicle (Primary Dx); Contusion of left shoulder, initial encounter 03/26/2024 Telephone [facility] Behavioral Health Intake [address] [place] [phone] Generic, Behavioral Intake, MH/CD Inpatient 03/26/2024 Travel 03/26/2024 4:01 PM CDT - 03/26/2024 7:37 PM CDT Emergency [facility] Emergency Department [facility] [place] [phone] Marco Ivan MD Sovell, Paul J., MD Alcoholic intoxication without complication (H) Discharge Disposition: Home or Self Care from Last 3 Months Allergies Active Allergy Reactions Criticality Noted Date [...] chronic/recurrent pain applies. Recommend use of a heavy machinery assembler and documentation of the same during all [...] CDT Plan of Treatment Not on file Procedures Procedure Name Priority Date/Time Associated Diagnosis Comments XR ACROMIOCLAVICULAR JOINT BILATERAL STAT 04/04/2024 2:39 PM CDT Pain of left clavicle XR CLAVICLE LEFT 2 VIEWS STAT 2:39 PM CDT Pain of left clavicle [...] 2 VIEWS, XR ACROMIOCLAVICULAR JOINT BILATERAL LOCATION: [facility] DATE: 04/04/2024 INDICATION: pain, swelling, trauma COMPARISON: None. Procedure Note Rosie Tilley MD - 04/04/2024 EXAM: XR CLAVICLE LEFT 2 VIEWS, XR ACROMIOCLAVICULAR JOINT BILATERAL LOCATION: [facility] DATE: 04/04/2024 INDICATION: pain, swelling, trauma COMPARISON: [...] 2 VIEWS, XR ACROMIOCLAVICULAR JOINT BILATERAL LOCATION: [facility] DATE: 04/04/2024 INDICATION: pain, swelling, trauma COMPARISON: None. Procedure Note Rosie Tilley MD - 04/04/2024 EXAM: XR CLAVICLE LEFT 2 VIEWS, XR ACROMIOCLAVICULAR JOINT BILATERAL LOCATION: [facility] DATE: 04/04/2024 INDICATION: pain, swelling, trauma COMPARISON: [...] - 5.3 10e3/uL 03/26/2024 4:54 PM CDT [facility] Absolute Monocytes 0.5 0.0 - 1.3 10e3/uL 03/26/2024 4:54 PM CDT [facility] Absolute Eosinophils 0.1 0.0 - 0.7 10e3/uL 03/26/2024 4:54 PM CDT [facility] Absolute Basophils 0.1 0.0 - 0.2 10e3/uL 03/26/2024 4:54 PM CDT [facility] Absolute Immature Granulocytes 0.0 <=0.4 10e3/uL 03/26/2024 4:54 PM CDT [facility] Absolute NRBCs 0.0 10e3/uL 03/26/2024 4:54 PM CDT [facility] Blood BLOOD SPECIMEN / Unknown Venipuncture / Unknown 03/26/2024 4:44 PM CDT 03/26/2024 4:49 PM CDT Marco Ivan MD LAB - BLOOD ORDERABL ES Performing Organization Address City/[facility]/ZIP Co de Phone Number [facility] [address] * Magnesium (03/26/2024 4:44 PM CDT) Pathologist [facility] Magnesium 2.3 1.7 - 2.3 mg/dL 03/26/2024 5:33 PM CDT [facility] Blood BLOOD SPECIMEN / Unknown Venipuncture / Unknown 03/26/2024 4:44 PM CDT 03/26/2024 4:49 PM CDT Marco Ivan MD LAB - BLOOD ORDERABL ES [facility] [address] * (ABNORMAL) Urine Drug Screen Panel (03/26/2024 4:44 PM CDT) Amphetamines Urine Screen Negative Screen Negative 03/26/2024 5:13 PM CDT [facility] Comment:Cutoff for a negativ e amphetamine is less than 500 ng/mL. Barbituates Urine Screen Negative Screen Negative 03/26/2024 5:13 PM CDT [facility] Comment:Cutoff for a negativ e barbiturate is less than 200 ng/mL. Benzodiazepine Urine Screen Positive(A) Screen Negative 03/26/2024 5:13 PM CDT [facility] Comment: Cutoff for a positive benzodiazepine is 100 ng/mL or greater. This is an unconfirmed screening result to be used for medical purposes only. Cannabinoids Urine Screen Positive(A) Screen Negative 03/26/2024 5:13 PM CDT [facility] Comment: Cutoff for a positive cannabinoid is 50 ng/mL or greater. This is an unconfirmed screening result to be used for medical purposes only. Cocaine Urine Screen Negative Screen Negative 03/26/2024 5:13 PM CDT [facility] Comment:Cutoff for a negativ e cocaine is less than 300 ng/mL. Fentanyl Qual Urine Screen Negative Screen Negative 03/26/2024 5:13 PM CDT [facility] Comment:Cutoff for negative fentanyl is less than 5 ng/mL. Opiates Urine Screen Negative Screen Negative 03/26/2024 5:13 PM [facility]T [facility] Comment:Cutoff for a negativ e opiate is less than 300 ng/mL. PCP Urine Screen Negative Screen Negative 03/26/2024 5:13 PM CDT [facility] Comment:Cutoff for a negativ e PCP is less than 25 ng/mL. Urine URINE SPECIMEN OBTAINED BY CLEAN CATCH PROCEDURE / Unknown Non-blood Collection / Unknown 03/26/2024 4:44 PM CDT 03/26/2024 4:49 PM CDT Marco Ivan MD LAB - URINE ORDERABL ES [facility] [address] [place] [address], [facility] * (ABNORMAL) Ethyl Alcohol Level (03/26/2024 4:44 PM CDT) Alcohol ethyl 0.12(H) <=0.01 g/dL 03/26/2024 5:08 PM CDT [facility] Blood BLOOD SPECIMEN / Unknown Venipuncture / Unknown 03/26/2024 4:44 PM CDT 03/26/2024 4:49 PM CDT Marco Ivan MD LAB - BLOOD ORDERABL ES [facility] [address] [place] [address], [facility] * (ABNORMAL) Basic metabolic panel (03/26/2024 4:44 PM CDT) Sodium 148(H) 135 - 145 mmol/L 03/26/2024 5:08 PM CDT [facility] Potassium 4.2 3.4 - 5.3 mmol/L 03/26/2024 5:08 PM CDT [facility] Chloride 108(H) 98 - 107 mmol/L 03/26/2024 5:08 PM CDT [facility] Carbon Dioxide (CO2) 26 22 - 29 mmol/L 03/26/2024 5:08 PM CDT [facility] Anion Gap 14 7 - 15 mmol/L 03/26/2024 5:08 PM CDT [facility] Urea Nitrogen 10.5 6.0 - 20.0 mg/dL 03/26/2024 5:08 PM CDT [facility] Creatinine 0.81 0.67 - 1.17 mg/dL 03/26/2024 5:08 PM CDT [facility] GFR Estimate >90 >60 mL/min/1.7 3m2 03/26/2024 5:08 PM CDT [facility] Comment:eGFR calculated usin 2020 CKD-EPI equation. Calcium 8.9 8.8 - 10.4 mg/dL 03/26/2024 5:08 PM CDT [facility] Comment:Reference intervals for this test were updated on 02/19/2024 to reflect our healthy population more accurately. There may be differences in the flagging of prior results with similar values performed with this method. Those prior results can be interpreted in the context of the updated reference intervals. Glucose 85 70 - 99 mg/dL 03/26/2024 5:08 PM CDT [facility] Blood BLOOD SPECIMEN / Unknown Venipuncture / Unknown 03/26/2024 4:44 PM CDT 03/26/2024 4:49 PM CDT Marco Ivan MD LAB - BLOOD ORDERABL ES [facility] [address] [place] [address], [facility] from Last 3 Months Care Teams Senior Physical Therapist Relationship Specialty Start Date End Date Teri Varela PA-C [facility] [address] [place] [address] PCP - General Physician Paper Mill Superintendent 05/26/22
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
--- OUTSIDE RECORDS SUMMARY | 2024-05-19 15:34 | XMS_ITS | Encounter Summary ---
Author Organization [facility] Address [address] [place] [address]. [place] [address] Care Team Providers Care Photography Professor Name Role Phone Teri Varela PA-C Primary Care Provider Encounter Details Date Type Department Care Team (Latest Contact Info) Description 04/04/2024 Travel Social History Tobacco Use Types Packs/Day [...] documented as of this encounter Care Teams Photography Professor Relationship Specialty Start Date End Date Teri Varela PA-C [facility] [address] [place] [address] PCP - General Physician Neurophysiological Technician 05/26/22 documented as of this encounter
--- OUTSIDE RECORDS SUMMARY | 2024-05-19 15:34 | XMS_ITS | Encounter Summary ---
Author Organization [facility] Address [address] [place] [address]. [place] [address] Care Team Providers Care Body Worker Name Role Phone Nichole Luz Mariasagar Emmanuel PA-C Primary Care Provider Reason for Visit * Reason Onset Date Comments MH/CD Inpatient 03/26/2024 Encounter Details Date Type Department Care Team ([facility] st Contact Info) Description 03/26/2024 Telephone [facility] Behavioral Health Intake [address] [place] [phone] Generic, Behavioral Intake, MH/CD Inpatient Social History Tobacco Use Types Packs/Day Years [...] encounter Miscellaneous Notes * Telephone Encounter - Jeannette Hernandez - 03/26/2024 5:22 PM CDT S: [facility] ED , Provider Marzena calling at 5:21 PM with clinical on a 33 year old/Male presenting for alcohol detox. Has treatment program set up, but they are requiring detox before starting. B: Pt presents for ETOH detox. Currently reports drinking 1/5 of liquor for years. Patient reports last use was 4 hours ago. Pt SERGIO: 0.12 Pt endorses hx of DT, mild Pt denies hx of seizures. Last seizure: N/A Pt endorsing the following symptoms of withdrawal: Tremulous, Tachycardic, and Nausea MSSA Score: N/A Pt denies acute mental health or medical concerns. Pt endorses other drug use: (!) CANNABIS PRODUCTS Amount/frequency: N/A Does Pt have a detox care plan in Epic? No, only has ED care plan. Does pt present with specific needs, assistive devices, or exclusionary criteria? None Is the patient ambulating, eating and drinking in the ED? Yes A: Pt meets criteria to be presented for IP detox admission. Patient is voluntary COVID Symptoms: No If yes, COVID test required Utox: Positive for Benzos (prescribed lorazepam) and cannabinoids Magnesium: Not ordered, intake requested lab CMP: Abnormalities: sodium: 148; chloride: 108 CBC: WNL HCG: N/A R: Patient cleared and ready for behavioral bed placement: Yes Pt is meeting criteria for presentation to 3A/CD Does Patient need a Transfer Center request created? Yes, credit underwriter completed Transfer Center request at: 5:32 PM Awaiting magnesium lab for presentation for detox. 5:45 PM Paged William to review pt for admission to 3A/[place]. 6:13 PM William accepts pt for admission to 3A/CD/[place]. 6:17 PM Called 3A, CRN unavailable. 6:54 PM Called 3A, CRN unavailable. 6:56 PM Called [facility] ED and provided placement. documented in this encounter Plan of Treatment Not on file documented as of this encounter Visit Diagnoses Not on filedocumented in this encounter Additional Health Concerns Assessment Noted Time PHQ-9 Depression Total Score: 6 03/22/20 16 7:13 AM CDT documented as of this encounter Care Teams Body Worker Relationship Specialty Start Date End Date Teri Varela PA-C [facility] [address] [place] [address] PCP - General Physician Reforestation Worker 05/26/22 documented as of this encounter
--- OUTSIDE RECORDS SUMMARY | 2024-05-19 15:34 | XMS_ITS | Encounter Summary ---
Author Organization [facility] Address [address] [place] [address]. [place] [address] Care Team Providers Care Egg Processor Name Role Phone Teri Varela PA-C Primary Care Provider Reason for Referral * Diagnostic Imaging XR (Routine) - Pending Review Specialty Diagnoses / Procedures Referred By Zechariah nails Referred To Contact Radiology. Diagnoses Pain of left clavicle Procedures XR Clavicle Left 2 Views Lisette Lima PA-C [address] [place] [address] Referral ID Status Reason Start Date Expiration Date V isits Requested Visits Authorized [id number] Pending Review 04/04/2024 04/04/2025 1 1 Reason for Visit * Diagnostic Imaging XR (Routine) - Pending Review Specialty Diagnoses / Procedures Referred By Zechariah nails Referred To Contact Radiology. Diagnoses Pain of left clavicle Procedures XR Clavicle Left 2 Views Lisette Lima PA-C [address] [place] [address] Referral ID Status Reason Start Date Expiration Date V isits Requested Visits Authorized [id number] Pending Review 04/04/2024 04/04/2025 1 1 Encounter Details Date Type Department Care Team (Latest Contact Info) Description 04/04/2024 2:27 PM CDT - 04/04/2024 11:59 PM CDT Hospital Encounter [facility] [address] [phone] Lisette Lima PA-C [address] [place] [address] Pain of left clavicle Discharge Disposition: Home or Self Care Social History Tobacco Use Types Packs/Day Years [...] on file documented as of this encounter Medications at Time of Discharge Medication Sig Dispensed Refills Start Date End Date Acetaminophen (TYLENOL PO) BuPROPion HCl (WELLBUTRIN XL PO) Take 300 mg by mouth ibuprofen (ADVIL/MOTRIN) 600 MG tablet Take 1 tablet (600 mg) by mouth every 6 hours as needed for moderate pain 60 tablet 11/17/2016 lidocaine (LIDODERM) 5 % patch Place 1 patch onto the skin every 24 hours To prevent lidocaine toxicity, patient should be patch free for 12 hrs daily. 10 patch 09/05/2022 lisinopril-hydrochlorot hiazide (PRINZIDE/ZESTORETIC) 10-6.25 MG per half-tab Take 1 tablet by mouth daily methocarbamol (ROBAXIN) 750 MG tablet Take 1 tablet (750 mg) by mouth 4 times daily as needed (muscle pain/spasm) 28 tablet 09/05/2022 methylPREDNISolone (MEDROL DOSEPAK) 4 MG tablet therapy pack Follow Package Directions 21 tablet 09/05/2022 naproxen (NAPROSYN) 500 MG tabletIndications:Pain of left clavicle,Contusion of left shoulder, initial encounter Take 1 tablet (500 mg) by mouth 2 times daily (with meals). As needed for shoulder pain 30 tablet 04/04/2024 oxyCODONE (ROXICODONE) 5 MG tablet Take 1 tablet (5 mg) by mouth every 6 hours as needed for severe pain 6 tablet 05/27/2022 documented as of this encounter Plan of Treatment Not on file documented as of this encounter Procedures Procedure Name Priority Date/Time Associated Diagnosis Comments XR CLAVICLE LEFT 2 VIEWS STAT 04/04/2024 2:39 PM CDT Pain of left clavicle documented in this encounter Results * XR Clavicle Left 2 Views (04/04/2024 [...] 2 VIEWS, XR ACROMIOCLAVICULAR JOINT BILATERAL LOCATION: [facility] DATE: 04/04/2024 INDICATION: pain, swelling, trauma COMPARISON: None. Procedure Note Rosie Tilley MD - 04/04/2024 EXAM: XR CLAVICLE LEFT 2 VIEWS, XR ACROMIOCLAVICULAR JOINT BILATERAL LOCATION: [facility] DATE: 04/04/2024 INDICATION: pain, swelling, trauma COMPARISON: None. IMPRESSION: No acute fracture of the left clavicle or elsewhere in leftshoulder. The acromioclavicular and coracoclavicular intervals aremaintained and are symmetric to the contralateral right side. Lisette Lima PA-C [facility] ORDERABLES documented in this encounter Visit Diagnoses Diagnosis Pain of left clavicle documented in this encounter Additional Health Concerns Assessment Noted Time PHQ-9 Depression Total Score: 6 03/22/20 16 7:13 AM CDT documented as of this encounter Care Teams Egg Processor Relationship Specialty Start Date End Date Teri Varela PA-C [facility] [address] [place] [address] PCP - General Physician Scissors Sharpener 05/26/22 documented as of this encounter
--- OUTSIDE RECORDS SUMMARY | 2024-05-19 15:34 | XMS_ITS | Encounter Summary ---
Author Organization [facility] Address [address] [place] [address]. [place] [address] Care Team Providers Care Stucco Laborer Name Role Phone Teri Varela PA-C Primary Care Provider Reason for Referral * Diagnostic Imaging XR (Routine) - Pending Review Specialty Diagnoses / Procedures Referred By Zechariah nails Referred To Contact Radiology. Diagnoses Pain of left clavicle Procedures XR Acromioclavicular Joint Bilateral Lisette Lima PA-C [address] [place] [address] Referral ID Status Reason Start Date Expiration Date V isits Requested Visits Authorized [id number] Pending Review 04/04/2024 04/04/2025 1 1 Reason for Visit * Diagnostic Imaging XR (Routine) - Pending Review Specialty Diagnoses / Procedures Referred By Zechariah nails Referred To Contact Radiology. Diagnoses Pain of left clavicle Procedures XR Acromioclavicular Joint Bilateral Lisette Lima PA-C [address] [place] [address] Referral ID Status Reason Start Date Expiration Date V isits Requested Visits Authorized [id number] Pending Review 04/04/2024 04/04/2025 1 1 Encounter Details Date Type Department Care Team (Latest Contact Info) Description 04/04/2024 2:27 PM CDT - 04/04/2024 11:59 PM CDT Hospital Encounter [facility] [address] [facility] [address] [place] [phone] Lisette Lima PA-C [address] [place] [address] Pain of left clavicle Discharge Disposition: Home [...] documented in this encounter Results * XR Acromioclavicular Joint Bilateral (04/04/2024 [...] 2 VIEWS, XR ACROMIOCLAVICULAR JOINT BILATERAL LOCATION: [facility] DATE: 04/04/2024 INDICATION: pain, swelling, trauma COMPARISON: None. Procedure Note Rosie Tilley MD - 04/04/2024 EXAM: XR CLAVICLE LEFT 2 VIEWS, XR ACROMIOCLAVICULAR JOINT BILATERAL LOCATION: [facility] DATE: 04/04/2024 INDICATION: pain, swelling, trauma [...] documented as of this encounter Care Teams Stucco Laborer Relationship Specialty Start Date End Date Teri Varela PA-C [facility] [address] [place] [address] PCP - General Physician Celery Wrapper 05/26/22 documented as of this encounter
--- OUTSIDE RECORDS SUMMARY | 2024-05-19 15:34 | XMS_ITS | Encounter Summary ---
Author Organization [facility] Address [address] [place] [address]. [place] [address] Care Team Providers Care Retort Setter Name Role Phone TracyTeri montes Lien CORONA Primary Care Provider Reason for Visit * Reason Comments Alcohol Intoxication Alcohol Problem Encounter Details Date Type Department Care Team (Late st Contact Info) Description 03/26/2024 4:01 PM CDT - 03/26/2024 7:37 PM CDT Emergency [facility] Emergency Department [address] [place] [phone] Marco Ivan MD [address] [place] [address] [place] [address] [place] [id number] Alcoholic intoxication without complication (H) Discharge Disposition: Home or Self Care Social [...] on file documented as of this encounter Last Filed Vital Signs Vital Sign Reading Time Taken Comments Blood Pressure 130/89 03/26/2024 5:32 PM CDT Pulse 101 03/26/2024 5:32 PM CDT Temperature 36.9 ??C (98.5 ??F) 03/26/2024 3:29 PM CD T Respiratory Rate 34 03/26/2024 5:32 PM CDT Oxygen Saturation 98% 03/26/2024 5:32 PM CDT Inhaled Oxygen Concentration - - Weight 104.8 kg (231 lb) 03/26/2024 3:29 PM CDT Height - - Body Mass Index 30.48 05/26/2022 8:42 PM CDT documented in this encounter Discharge Instructions * Attachments The following attachments cannot be sent through Care Everywhere. * Alcohol Use Disorder: General Info (French) documented in this encounter Medications at Time of Discharge [...] pack Follow Package Directions 21 tablet 09/05/2022 oxyCODONE (ROXICODONE) 5 MG tablet Take 1 tablet (5 mg) by mouth every 6 hours as needed for severe pain 6 tablet 05/27/2022 documented as of this encounter ED Notes * Angel Koch MD - 03/26/2024 7:08 PM CDT 7:08 PM. Patient declining detox at this time. Just wants to be reassured his blood alcohol is 0. Given his blood alcohol was 0.12 almost 4 hours ago he should be very close to 0 definitely in a nontoxic state. Will proceed with discharge Angel Koch MD 03/26/24 1908 * Saqib Brewer RN - 03/26/2024 7:06 PM CDT Pt accepted by [facility] for detox, but pt refused and states, he only wants to be sober and and wants his alcohol level to be 0, to go back to the rehab. Dr. Angeles made aware * Marco Ivan MD - 03/26/2024 4:30 PM CDT EMERGENCY DEPARTMENT ENCOUNTER ED Course & Medical Decision Making I saw and examined the patient. He is here for alcohol detox awaiting inpatient substance use treatment at [facility]. He has never had any alcohol withdrawal seizures. He feels mild tremors and he was mildly tachycardic. He is given some IV fluids, multivitamin, 1 mg of Ativan. He is awake, talking, appropriate. Notsuicidal or homicidal. Diagnostics ordered. Alcohol returns at 0.12. I discussed the case with [facility] and they are holding a bed for him. They did request adding on a magnesium level which is pending. After that plan is to transfer for alcohol detox. 4:30 PM I met with the patient, obtained history, performed an initial exam, and discussed options and plan for diagnostics and treatment here in the ED. Medical Decision Making Obtained supplemental history:Supplemental history obtained?: No Reviewed external records: External records reviewed?: No Care impacted by chronic illness:Chronic Pain and Mental Health Care significantly affected by social determinants of health:Alcohol Abuse and/or Recreational DrugUse Did you consider but not order tests?: Work up considered but not performed and documented in chart, if applicable Did you interpret images independently?: Independent interpretation of ECG and images noted in documentation, when applicable. Consultation discussion with other provider:Did you involve another provider (client care consultant, , pharmacy, etc.)?: I discussed the care with another health care provider, see documentation for details. Transfer to [facility] Prior to making a final disposition on this patient the results of patient's tests and other diagnostic studies were discussed with the patient. All questions were answered. Patient expressed understanding of the plan and was amenable to it. Medications sodium chloride 0.9% BOLUS 1,000 mL (1,000 mLs Intravenous $New Bag 03/26/241642) ondansetron (ZOFRAN) injection 4 mg (4 mg Intravenous $Given 03/26/241657) multivitamin, therapeutic (THERA-VIT) tablet 1 tablet (1 tablet Oral $Given 03/26/241652) LORazepam (ATIVAN) injection 1 mg (1 mg Intravenous $Given 03/26/241658) ketorolac (TORADOL) injection 15 mg (15 mg Intravenous $Given 03/26/241658) Final Impression 1. Alcoholic intoxication without complication (H24) Chief Complaint Chief Complaint Patient presents with Alcohol Intoxication Alcohol Problem Patient arrives by private car for evaluation of alcohol intoxication. Patient reports he went to rehab today and they advised that he come here for detox before he can be admitted here. Last drink was approx 2 hours ago. Patient has ED care plan. Denies history of withdrawal seizures. LYNN Rios is a pleasant 33 year old male with a pertinent history of major depression, panic disorder, anxiety, hypertension, chemical dependency, presents to the Emergency Department for evaluation of alcohol intoxication. The patient reports alcohol intoxication, blurred vision, tingling throughout entire body, palpitations, and diaphoresis. His last drink was approximately 2 hours ago. Patient notes he recently went through opiate withdrawal ~3 weeks ago. He would like to go to rehab but was advised he would have to go through detox. Of note, patient took 6 mg of Clonazepam 1 day ago. His prescribed dose is 0.5 mg. He took his regular dose this morning. Denies history of withdrawal seizures. Denies suicidal ideation. I, Lupe Callahan am serving as a scribe to document services personally performed byMarco Ivan M.D. based on my observation and the provider's statements to me. IMarco M.D attest that Lupe Callahan is acting in a scribe capacity, has observed my performance of the services and has documented them in accordance with my direction. Past Medical History Past Medical History: Diagnosis Date Chronic mental illness Depressive disorder Past Surgical History: Procedure Laterality Date LEG SURGERY Right ORTHOPEDIC SURGERY leg surgery Family History Problem Relation Age of Onset Depression Mother Anxiety Disorder Mother Substance Abuse Mother Bipolar Disorder Father Substance Abuse Father Substance Abuse Maternal Grandmother Dementia Maternal Grandmother Depression Maternal Grandfather Substance Abuse Maternal Grandfather Unknown/Adopted Paternal Grandmother Unknown/Adopted Paternal Grandfather Anxiety Disorder Sister Schizophrenia No family hx of Suicide No family hx of [place] Disease No family hx of Parkinsonism No family hx of Autism Spectrum Disorder No family hx of Intellectual Disability No family hx of Mental Illness No family hx of Social History Tobacco Use Smoking status: Never Substance Use Topics Alcohol use: No Alcohol/week: 0.0 standard drinks of alcohol Drug use: No Relevant past medical, surgical, family and social history as documented above, has been reviewed and discussed with patient. No changes or additions, unless otherwise noted in the HPI. Current Medications Acetaminophen (TYLENOL PO) BuPROPion HCl (WELLBUTRIN XL PO) ibuprofen (ADVIL/MOTRIN) 600 MG tablet lidocaine (LIDODERM) 5 % patch lisinopril-hydrochlorothiazide (PRINZIDE/ZESTORETIC) 10-6.25 MG per half-tab methocarbamol (ROBAXIN) 750 MG tablet methylPREDNISolone (MEDROL DOSEPAK) 4 MG tablet therapy pack oxyCODONE (ROXICODONE) 5 MG tablet Allergies Allergies Allergen Reactions Hydroxyzine Rash Review of Systems Review of Systems Constitutional: Positive for diaphoresis. Cardiovascular: Positive for palpitations. Neurological: Positive for tingling throughout entire body. Psychiatric/Behavioral: Negative for suicidal ideas. Remainder of systems reviewed, unless noted in HPI all others negative. Physical Exam BP (!) 142/99 Pulse 114 Temp 98.5 ??F (36.9 ??C) (Tympanic) Resp 18 Wt 104.8 kg (231 lb) SpO2 98% BMI 30.48 kg/m?? Physical Exam Vitals and nursing note reviewed. Constitutional: General: He is not in acute distress. HENT: Head: Normocephalic. Nose: Nose normal. Eyes: General: No scleral icterus. Cardiovascular: Rate and Rhythm: Tachycardia present. Pulmonary: Effort: Pulmonary effort is normal. Musculoskeletal: Cervical back: Neck supple. Skin: Findings: No rash. Neurological: Mental Status: He is alert. Mental status is at baseline. Comments: Mild intention tremor Psychiatric: Mood and Affect: Mood normal. Labs & Imaging Labs Ordered and Resulted from Time of ED Arrival to Time of ED Departure BASIC METABOLIC PANEL - Abnormal Result Value Sodium 148 (*) Potassium 4.2 Chloride 108 (*) Carbon Dioxide (CO2) 26 Anion Gap 14 Urea Nitrogen 10.5 Creatinine 0.81 GFR Estimate >90 Calcium 8.9 Glucose 85 ETHYL ALCOHOL LEVEL - Abnormal Alcohol ethyl 0.12 (*) URINE DRUG SCREEN PANEL - Abnormal Amphetamines Urine Screen Negative Barbituates Urine Screen Negative Benzodiazepine Urine Screen Positive (*) Cannabinoids Urine Screen Positive (*) Cocaine Urine Screen Negative Fentanyl Qual Urine Screen Negative Opiates Urine Screen Negative PCP Urine Screen Negative CBC WITH PLATELETS AND DIFFERENTIAL WBC Count 8.0 RBC Count 5.31 Hemoglobin 15.7 Hematocrit 47.2 MCV 89 MCH 29.6 MCHC 33.3 RDW 13.2 Platelet Count 333 % Neutrophils 57 % Lymphocytes 35 % Monocytes 7 % Eosinophils 1 % Basophils 1 % Immature Granulocytes 0 NRBCs per 100 WBC 0 Absolute Neutrophils 4.6 Absolute Lymphocytes 2.8 Absolute Monocytes 0.5 Absolute Eosinophils 0.1 Absolute Basophils 0.1 Absolute Immature Granulocytes 0.0 Absolute NRBCs 0.0 MAGNESIUM Results for orders placed or performed during the hospital encounter of 03/26/24 Basic metabolic panel Result Value Ref Range Sodium 148 (H) 135 - 145 mmol/L Potassium 4.2 3.4 - 5.3 mmol/L Chloride 108 (H) 98 - 107 mmol/L Carbon Dioxide (CO2) 26 22 - 29 mmol/L Anion Gap 14 7 - 15 mmol/L Urea Nitrogen 10.5 6.0 - 20.0 mg/dL Creatinine 0.81 0.67 - 1.17 mg/dL GFR Estimate >90 >60 mL/min/1.73m2 Calcium 8.9 8.8 - 10.4 mg/dL Glucose 85 70 - 99 mg/dL Ethyl Alcohol Level Result Value Ref Range Alcohol ethyl 0.12 (H) <=0.01 g/dL CBC with platelets and differential Result Value Ref Range WBC Count 8.0 4.0 - 11.0 10e3/uL RBC Count 5.31 4.40 - 5.90 10e6/uL Hemoglobin 15.7 13.3 - 17.7 g/dL Hematocrit 47.2 40.0 - 53.0 % MCV 89 78 - 100 fL MCH 29.6 26.5 - 33.0 pg MCHC 33.3 31.5 - 36.5 g/dL RDW 13.2 10.0 - 15.0 % Platelet Count 333 150 - 450 10e3/uL % Neutrophils 57 % % Lymphocytes 35 % % Monocytes 7 % % Eosinophils 1 % % Basophils 1 % % Immature Granulocytes 0 % NRBCs per 100 WBC 0 <1 /100 Absolute Neutrophils 4.6 1.6 - 8.3 10e3/uL Absolute Lymphocytes 2.8 0.8 - 5.3 10e3/uL Absolute Monocytes 0.5 0.0 - 1.3 10e3/uL Absolute Eosinophils 0.1 0.0 - 0.7 10e3/uL Absolute Basophils 0.1 0.0 - 0.2 10e3/uL Absolute Immature Granulocytes 0.0 <=0.4 10e3/uL Absolute NRBCs 0.0 10e3/uL Urine Drug Screen Panel Result Value Ref Range Amphetamines Urine Screen Negative Screen Negative Barbituates Urine Screen Negative Screen Negative Benzodiazepine Urine Screen Positive (A) Screen Negative Cannabinoids Urine Screen Positive (A) Screen Negative Cocaine Urine Screen Negative Screen Negative Fentanyl Qual Urine Screen Negative Screen Negative Opiates Urine Screen Negative Screen Negative PCP Urine Screen Negative Screen Negative Marco Ivan MD Emergency Medicine [facility] EMERGENCY DEPARTMENT [facility] [phone] 03/26/2024 Marco Ivan MD 03/26/24 1732 * Maria D Roque RN - 03/26/2024 3:30 PM CDT Patient arrives by private car for evaluation of alcohol intoxication. Patient reports he went to rehab today and they advised that he come here for detox before he can be admitted here. Last drink was approx 2 hours ago. Patient has ED care plan. Denies history of withdrawal seizures. documented in this encounter Plan of Treatment Not on file documented as of this encounter Procedures Procedure Name Priority Date/Time Associated Diagnosis Comments URINE DRUG SCREEN STAT 03/26/2024 4:4 4 PM CDT CBC WITH PLATELETS AND DIFFERENTIAL STAT 03/26/2024 4:44 PM CDT CBC WITH PLATELETS & DIFFERENTIAL STAT 03/26/2024 4:44 PM CDT MAGNESIUM STAT 03/26/2024 4:44 PM CDT URINE DRUG SCREEN PANEL STAT 03/26/2024 4:44 PM CDT ETHYL ALCOHOL LEVEL STAT 03/26/2024 4 :44 PM CDT BASIC METABOLIC PANEL STAT 03/26/2024 4:44 PM CDT documented in this encounter Results * Magnesium (03/26/2024 4:44 PM CDT) [facility] Magnesium 2.3 1.7 - 2.3 mg/dL 03/26/2024 5:33 PM CDT [facility] Blood BLOOD SPECIMEN / Unknown Venipuncture / Unknown 03/26/2024 4:44 PM CDT 03/26/2024 4:49 PM CDT Marco Ivan MD LAB - BLOOD ORDERABL ES [facility] [address] [place] [address], [facility] * (ABNORMAL) Urine Drug Screen Panel (03/26/2024 4:44 PM CDT) Pathologist [facility] Amphetamines Urine Screen Negative Screen Negative 03/26/2024 5:13 PM CDT [facility] Comment:Cutoff for a negativ e amphetamine is less than 500 ng/mL. Barbituates Urine Screen Negative Screen Negative 03/26/2024 5:13 PM CDT [facility] Comment:Cutoff for a negativ e barbiturate is less than 200 ng/mL. Benzodiazepine Urine Screen Positive(A) Screen Negative 03/26/2024 5:13 PM CDT [facility] Comment: Cutoff for a positive benzodiazepine is 100 ng/mL or greater. This is an unconfirmed screening result to be used for medical purposes only. Cannabinoids Urine Screen Positive(A) Screen Negative 03/26/2024 5:13 PM CDT [facility] Comment: Cutoff for a positive cannabinoid is 50 ng/mL or greater. This is an unconfirmed screening result to be used for medical purposes only. Cocaine Urine Screen Negative Screen Negative 03/26/2024 5:13 PM CDT [facility] Comment:Cutoff for a negativ e cocaine is less than 300 ng/mL. Fentanyl Qual Urine Screen Negative Screen Negative 03/26/2024 5:13 PM CDT [facility] Comment:Cutoff for negative fentanyl is less than 5 ng/mL. Opiates Urine Screen Negative Screen Negative 03/26/2024 5:13 PM CDT [facility] Comment:Cutoff for a negativ e opiate is less than 300 ng/mL. PCP Urine Screen Negative Screen Negative 03/26/2024 5:13 PM CDT [facility] Comment:Cutoff for a negativ e PCP is less than 25 ng/mL. Urine URINE SPECIMEN OBTAINED BY CLEAN CATCH PROCEDURE / Unknown Non-blood Collection / Unknown 03/26/2024 4:44 PM CDT 03/26/2024 4:49 PM CDT Marco Ivan MD LAB - URINE ORDERABL ES [facility] [address] [place] [id number], [facility] * CBC with platelets and differential (03/26/2024 4:44 PM CDT) WBC Count 8.0 4.0 - 11.0 10e3/uL 03/26/2024 4:54 PM CDT N LAB[facility] RBC Count 5.31 4.40 - 5.90 10e6/uL 03/26/2024 4:54 PM CDT [facility] Hemoglobin 15.7 13.3 - 17.7 g/dL 03/26/2024 4:54 PM CDT [facility] Hematocrit 47.2 40.0 - 53.0 % 03/26/2024 4:54 PM CDT [facility] MCV 89 78 - 100 fL 03/26/2024 4:54 PM CDT [facility] MCH 29.6 26.5 - 33.0 pg [...] - 0.2 10e3/uL 03/26/2024 4:54 PM CDT [facility] Absolute Immature Granulocytes 0.0 <=0.4 10e3/uL 03/26/2024 4:54 PM CDT [facility] Absolute NRBCs 0.0 10e3/uL 03/26/2024 4:54 PM CDT [facility] Blood BLOOD SPECIMEN / Unknown Venipuncture / Unknown 03/26/2024 4:44 PM CDT 03/26/2024 4:49 PM CDT Marco Ivan MD LAB - BLOOD ORDERABL ES Performing Organization Address [facility]/ZIP Co de Phone Number [facility] [address] * (ABNORMAL) Ethyl Alcohol Level (03/26/2024 4:44 PM CDT) Alcohol ethyl 0.12(H) <=0.01 g/dL 03/26/2024 5:08 PM CDT N [facility] Blood BLOOD SPECIMEN / Unknown Venipuncture / Unknown 03/26/2024 4:44 PM CDT 03/26/2024 4:49 PM CDT Marco Ivan MD LAB - BLOOD ORDERABL ES Performing Organization Address [facility] Co de Phone Number [facility] [address] * (ABNORMAL) Basic metabolic panel (03/26/2024 4:44 PM CDT) Sodium 148(H) 135 - 145 mmol/L 03/26/2024 5:08 PM CDT N [facility] Potassium 4.2 3.4 - 5.3 mmol/L 03/26/2024 5:08 PM CDT [facility] Chloride 108(H) 98 - 107 mmol/L 03/26/2024 5:08 PM CDT N [facility] Carbon Dioxide (CO2) 26 22 - 29 mmol/L 03/26/2024 5:08 PM CDT N [facility] Anion Gap 14 7 - 15 mmol/L 03/26/2024 5:08 PM CDT N [facility] Urea Nitrogen 10.5 6.0 - 20.0 mg/dL 03/26/2024 5:08 PM CDT N [facility] Creatinine 0.81 0.67 - 1.17 mg/dL 03/26/2024 5:08 PM CDT N [facility] GFR Estimate >90 >60 mL/min/1.7 3m2 03/26/2024 5:08 PM CDT [facility] Comment:eGFR calculated usin 2020 CKD-EPI equation. Calcium 8.9 8.8 - 10.4 mg/dL 03/26/2024 5:08 PM CDT [facility] Comment:Reference intervals for this test were updated on 02/19/2024 to reflect our healthy population more accurately. There may be differences in the flagging of prior results with similar values performed with this method. Those prior results can be interpreted in the context of the updated reference intervals. Glucose 85 70 - 99 mg/dL 03/26/2024 5:08 PM CDT [facility] Blood BLOOD SPECIMEN / Unknown Venipuncture / Unknown 03/26/2024 4:44 PM CDT 03/26/2024 4:49 PM CDT Marco Ivan MD LAB - BLOOD ORDERABL ES [facility] [address] [place] [id number], [facility] documented in this encounter Visit Diagnoses Diagnosis Alcoholic intoxication without complication (H) documented in this encounter Administered Medications Inactive Administered Medications - up to 3 most recent administrations Medication Order MAR Action Action Date Dose Rate Site ketorolac (TORADOL) injection 15 mg 15 mg, Intravenous, ONCE, On Sun03/26/24 at 1700, For 1 dose, Can cause pain on injection. If ordered intravenously (IV) : administer through a running maintenance fluid over 1 minute followed by a flush. If patient complains of pain on injection, may dilute 15-30 mg in 5 mL and push over 1 to 2 minutes. $Given 03/26/2024 4:59 PM CDT 15 mg LORazepam (ATIVAN) injection 1 mg 1 mg, Intravenous, ONCE, On Sun03/26/24 at 1700, For 1 dose, IV Route: Dilute with equal volume NS prior to use. This drug may cause significant respiratory depression. Monitor respiratory status and vital signs carefully for 1 hour after each dose. $Given 03/26/2024 4:59 PM CDT 1 mg multivitamin, therapeutic (THERA-VIT) tablet 1 tablet 1 tablet, Oral, ONCE, On Sun03/26/24 at 1700, For 1 dose $Given 03/26/2024 4:53 PM CDT 1 tablet ondansetron (ZOFRAN) injection 4 mg 4 mg, Intravenous, EVERY 30 MIN PRN, nausea, vomiting, Administer over 2-5 Minutes, Starting on Sun03/26/24 at 1630, For 3 doses, May repeat in 30 minutes as needed, up to 3 doses. $Given 03/26/2024 4:58 PM CDT 4 mg sodium chloride 0.9% BOLUS 1,000 mL Intravenous, 1,000 mL, ONCE, at 1,000 mL/hr, Administer over 1 Hours, On Sun03/26/24 at 1700, For 1 dose $New Bag 03/26/2024 4:43 PM CDT 1,000 mLs 1000 mL/hr documented in this encounter Active and Recently Administered Medications Times are shown in CDT. Scheduled Medication Order 03/24/2024 03/25/2024 03/26/2024 ketorolac (TORADOL) injection 15 mg (COMPLETED) 15 mg, Intravenous, ONCE, On Sun03/26/24 at 1700, For 1 dose, Can cause pain on injection. If ordered intravenously (IV) : administer through a running maintenance fluid over 1 minute followed by a flush. If patient complains of pain on injection, may dilute 15-30 mg in 5 mL and push over 1 to 2 minutes. 1659 ($Given - Provi gregory: Saqib Brewer RN) LORazepam (ATIVAN) injection 1 mg (COMPLETED) 1 mg, Intravenous, ONCE, On Sun03/26/24 at 1700, For 1 dose, IV Route: Dilute with equal volume NS prior to use. This drug may cause significant respiratory depression. Monitor respiratory status and vital signs carefully for 1 hour after each dose. 1659 ($Given - Provi gregory: Saqib Brewer RN) multivitamin, therapeutic (THERA-VIT) tablet 1 tablet (COMPLETED) 1 tablet, Oral, ONCE, On Sun03/26/24 at 1700, For 1 dose 1653 ($Given - Provi gregory: Saqib Brewer RN) sodium chloride 0.9% BOLUS 1,000 mL (COMPLETED) Intravenous, 1,000 mL, ONCE, at 1,000 mL/hr, Administer over 1 Hours, On Sun03/26/24 at 1700, For 1 dose 1643 ($New Bag - Pro vider: Saqib Brewer RN)1911 (Stopped - Provider: Saqib Brewer RN) PRN Medication Order 03/24/2024 03/25/2024 03/26/2024 ondansetron (ZOFRAN) injection 4 mg 4 mg, Intravenous, EVERY 30 MIN PRN, nausea, vomiting, Administer over 2-5 Minutes, Starting on Sun03/26/24 at 1630, For 3 doses, May repeat in 30 minutes as needed, up to 3 doses. 1658 ($Given - Provi gregory: Saqib Brewer RN) documented in this encounter Additional Health Concerns Assessment Noted Time PHQ-9 Depression Total Score: 6 03/22/20 16 7:13 AM CDT documented as of this encounter Care Teams Retort Setter Relationship Specialty Start Date End Date Teri Varela PA-C [address] [address] PCP - General Physician Eyeglass Maker 05/26/22 documented as of this encounter
--- OUTSIDE RECORDS SUMMARY | 2024-05-19 15:34 | XMS_ITS | Encounter Summary ---
Author Organization [place] Address [address] [place] [address]. [place] [address] Care Team Providers Care Subway Guard Name Role Phone Evans Bey MD Primary Care Provider Ana Murphy PA-C Primary Care Pro vider No Ref-Primary, Physician Primary Care Provider [facility] Primary Care Provider [facility]- Primary Care Provider Teri Varela PA-C Primary Care Provider Reason for Visit * Reason Onset Date Comments CD Outpatient 12/29/2015 Other Encounter Details Date Type Department Care Team ([facility] Contact Info) Description 12/29/2015 Telephone [facility] Behavioral Health Intake [address] [place] [phone] Generic, Behavioral IntakeMD CD Outpatient; Social [...] absence from group yesterday. AIDE Fritz, SEGUN, BRAZER HELPER INDUCTION * Telephone Encounter - Ambar Herndon LADC - 02/01/2016 8:02 AM CDT 02/01/2016 I called and updated the mechanical engineering officer stating the client had not returned my call and would be discharged today if he did not attend group. AIDE Fritz, SEGUN, BRAZER HELPER INDUCTION * Telephone Encounter - Adalberto Russell - [...] he got the message. AIDE Fritz, SEGUN, BRAZER HELPER INDUCTION * Telephone Encounter - El Johnston - [...] Herndon LADC Sent: 12/28/2015 12:35 PM To: [facility] Outpatient Intake Please schedule this client for [...] documented as of this encounter Care Teams Subway Guard Relationship Specialty Start Date End Date Evans Bey MD PCP - General Internal Medicine 07/21/15 08/24/16 Ana Bay PA-C PCP - General Family Practice 08/25/16 11/23/16 No Ref-Primary, Physician PCP - General 11/24/16 10/01/[address] [address] PCP - General 10/02/19 12/18/20 [facility]- [address] [place] [id number] PCP - General 12/19/20 05/25/22 Teri Varela PA-C [address] [address] PCP - General Physician Md Pediatric Allergist 05/26/22 documented as of this encounter
--- OUTSIDE RECORDS SUMMARY | 2024-05-19 15:34 | XMS_ITS | Encounter Summary ---
Author Organization [facility] Address [address] [place] [address]. [place] [address] Care Team Providers Care Paint Crew Supervisor Name Role Phone Teri Varela PA-C Primary Care Provider Reason for Referral * Diagnostic Imaging XR (Routine) - Pending Review Specialty Diagnoses / Procedures Referred By Zechariah nails Referred To Contact Radiology. Diagnoses Pain of left clavicle Procedures XR Acromioclavicular Joint Bilateral Lisette Lima PA-C [address] [place] [address] Referral ID Status Reason Start Date Expiration Date V isits Requested Visits Authorized [id number] Pending Review 04/04/2024 04/04/2025 1 1 * Diagnostic Imaging XR (Routine) - Pending Review Specialty Diagnoses / Procedures Referred By Zechariah nails Referred To Contact Radiology. Diagnoses Pain of left clavicle Procedures XR Clavicle Left 2 Views Lisette Lima PA-C [address] [place] [address] Referral ID Status Reason Start Date Expiration Date V isits Requested Visits Authorized [id number] Pending Review 04/04/2024 04/04/2025 1 1 Reason for Visit * Reason Comments Fall Today fall left shou lder injured. Encounter Details Date Type Department Care Team (Late st Contact Info) Description 04/04/2024 1:00 PM CDT Office Visit [address] [id number] Lisette Lima PA-C [address] [place] [address] Pain of left clavicle (Primary Dx); Contusion of left shoulder, initial encounter Social History Tobacco Use Types Packs/Day Years [...] 3.2 oz) 04/04/2024 2:01 PM CDT Height - - Body Mass Index 32.61 05/26/2022 8:42 PM CDT documented in this encounter Patient Instructions * Patient Instructions* Lisette Lima PA-C - 04/04/2024 1:00 PM CDT Ice, sling for comfort. May wean use of the sling as tolerated by pain. Return in 2 weeks if not improving as expected. Naproxen for pain. You may have a mild AC sprain, treatment is the same, sling, ice, avoid activities that bother it. If not improved may need referral to PT. documented in this encounter Progress Notes * Lisette Lima PA-C - 04/04/2024 1:00 PM CDT Assessment & Plan MDM: pt seen after injury sustained today to the L shoulder. Exam reveals pain, swelling at the distal clavicle and AC joint and decreased AROM. Xray negative for fracture. He has no laxity or separation noted on AC joint xray or with exam, though could represent grade 1 AC separation. Treated with sling for comfort. Activity as tolerated by pain, referral to PT if not improving overthe next 2 weeks with conservative measures. Ice to the area. Naproxen for pain. Pain of left clavicle - XR Clavicle Left 2 Views - XR Acromioclavicular Joint Bilateral - ARM SLING L - naproxen (NAPROSYN) 500 MG tablet Dispense: 30 tablet; Refill: 0 Contusion of left shoulder, initial encounter - ARM SLING L - naproxen (NAPROSYN) 500 MG tablet Dispense: 30 tablet; Refill: 0 [facility] Lisette Lima PA-C [facility] Desirae Huddleston is a 33 year old male who presents to clinic today for the following health issues: Chief Complaint Patient presents with Fall Today fall left shoulder injured. HPI Pt was doing a race when he tripped, fell doing a summersault and landed on the top of shoulder on the L. Has had pain and swelling, decreased ROM. Review of Systems Constitutional, HEENT, cardiovascular, pulmonary, gi and gu systems are negative, except as otherwise noted. Objective BP 135/73 (BP Location: Right arm, Patient Position: Sitting, Cuff Size: Adult Regular) Pulse 76 Temp 97.9 ??F (36.6 ??C) (Oral) Resp 18 Wt 112.1 kg (247 lb 3.2 oz) SpO2 100% BMI 32.61 kg/m?? Physical Exam Emanation of the left shoulder reveals lateral aspect of the clavicle to be swollen and tender to palpation with a visible lump pres just proximal to the left AC joint. No laxity noted with traction and no piano sign is noted. He has no pain with passive range of motion of the shoulder below 90 degrees in flexion extension and abduction but does have pain above 90 degrees in forward flexion and abduction with pain localized to the AC joint and lateral aspect of the clavicle. Sensation peripheral pulses are intact. Cap refill is brisk. Results for orders placed or performed during the hospital encounter of 04/04/24 XR Acromioclavicular Joint Bilateral Status: None Narrative EXAM: XR CLAVICLE LEFT 2 VIEWS, XR ACROMIOCLAVICULAR JOINT BILATERAL LOCATION: [facility] DATE: 04/04/2024 INDICATION: pain, swelling, trauma COMPARISON: None. Impression IMPRESSION: No acute fracture of the left clavicle or elsewhere in left shoulder. The acromioclavicular and coracoclavicular intervals are maintained and are symmetric to the contralateral right side. Results for orders placed or performed during the hospital encounter of 04/04/24 XR Clavicle Left 2 Views Status: None Narrative EXAM: XR CLAVICLE LEFT 2 VIEWS, XR ACROMIOCLAVICULAR JOINT BILATERAL LOCATION: [facility] DATE: 04/04/2024 INDICATION: pain, swelling, trauma COMPARISON: None. Impression IMPRESSION: No acute fracture of the left clavicle or elsewhere in left shoulder. The acromioclavicular and coracoclavicular intervals are maintained and are symmetric to the contralateral right side. documented in this encounter Plan of Treatment Not on file documented as of this encounter Results * XR Acromioclavicular Joint [...] 2 VIEWS, XR ACROMIOCLAVICULAR JOINT BILATERAL LOCATION: [facility] DATE: 04/04/2024 INDICATION: pain, swelling, trauma COMPARISON: None. Procedure Note Rosie Tilley MD - 04/04/2024 EXAM: XR CLAVICLE LEFT 2 VIEWS, XR ACROMIOCLAVICULAR JOINT BILATERAL LOCATION: [facility] DATE: 04/04/2024 INDICATION: pain, swelling, trauma [...] 2 VIEWS, XR ACROMIOCLAVICULAR JOINT BILATERAL LOCATION: [facility] DATE: 04/04/2024 INDICATION: pain, swelling, trauma COMPARISON: None. Procedure Note Rosie Tilley MD - 04/04/2024 EXAM: XR CLAVICLE LEFT 2 VIEWS, XR ACROMIOCLAVICULAR JOINT BILATERAL LOCATION: [facility] DATE: 04/04/2024 INDICATION: pain, swelling, trauma COMPARISON: None. IMPRESSION: No acute fracture of the left clavicle or elsewhere in leftshoulder. The acromioclavicular and coracoclavicular intervals aremaintained and are symmetric to the contralateral right side. Lisette Lima PA-C [facility] ORDERABLES documented in this encounter Visit Diagnoses Diagnosis Pain of left clavicle- Primary Contusion of left shoulder, initial encounter Pain of left clavicle Pain of left clavicle documented in this encounter Additional Health Concerns Assessment Noted Time PHQ-9 Depression Total Score: 6 03/22/20 16 7:13 AM CDT documented as of this encounter Care Teams Paint Crew Supervisor Relationship Specialty Start Date End Date Teri Varela PA-C [facility] [address], [place] [address] PCP - General Physician Wood Type Cutter 05/26/22 documented as of this encounter
== END 2024-05-19 15:28 | disposition home or self-care (01) ==
PROVIDERS: PCP Physician Assistant Medical; Visit Provider Physician Assistant Medical
DX: Z00.00 Encounter for general adult medical examination without abnormal findings (principal); I10 Essential (primary) hypertension; R79.89 Other specified abnormal findings of blood chemistry; D64.9 Anemia, unspecified; R73.09 Other abnormal glucose; E78.1 Pure hyperglyceridemia; F32.A Depression, unspecified; Z11.3 Encounter for screening for infections with a predominantly sexual mode of transmission; Z11.59 Encounter for screening for other viral diseases
CPT/HCPCS: 80053; 80061; 84443; 86592; 86703; 86706; 87340; 87522; 87529